=== PATIENT | female | born 1975 ===

== ENCOUNTER 2017-12-31 08:01 | Inpatient (IN) | payer MEDICARE, MEDICAID, OTHER ==
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
[2017-12-31 09:45] LABS: BASO # 0.01 K/mm3 (0.0-2.0); BASO % 0.2 % (0.0-3.0); EOS # 0.1 (0.0-0.7); EOS % 2.1 % (1.5-5.0); GRAN # 2.53 (1.4-6.5); GRAN % 48.9 % (50.0-68.0); LYMPH # 2.2 (1.2-3.4); LYMPH % 41.7 % (22.0-35.0); MEAN CELL VOLUME 89.6 fl (80.0-105.0); MEAN CORPUSCULAR HEMOGLOBIN 31.4 pg (25.0-35.0); MEAN PLATELET VOLUME 11.7 fl (7.0-11.0); MONO # 0.4 (0.1-0.6); MONO % 7.1 % (1.0-6.0); RBC 4.14 10^6/uL (3.5-6.1); RED CELL DISTRIBUTION WIDTH 13.4 % (11.5-14.5); WHITE BLOOD COUNT 5.2 10^3/ul (4.5-11.0)
[2017-12-31 09:50] LABS: ALB/GLOB RATIO 1.3 (1.1-1.8); ALBUMIN 4.1 g/dL (3.0-4.8); ALT/SGPT 25 U/L (7-56); AST/SGOT 26 U/L (14-36); BLOOD UREA NITROGEN 11 mg/dL (7-21); CALCIUM 9.6 mg/dL (8.4-10.5); GFR AFRICAN-AMERICAN > 60; GFR NON-AFRICAN AMERICAN > 60
--- NOTE | 2017-12-31 09:50 | CT ---
PROCEDURE: CT HEAD WITHOUT CONTRAST. HISTORY: severe generalized headaches COMPARISON: Unenhanced head CT 01/15/2016 TECHNIQUE: Axial computed tomography images were obtained through the head/brain without intravenous contrast. Radiation dose: Total exam DLP = 799.27 mGy-cm. This CT exam was performed using one or more of the following dose reduction techniques: Automated exposure control, adjustment of the mA and/or kV according to patient size, and/or use of iterative reconstruction technique. FINDINGS: HEMORRHAGE: No intracranial hemorrhage. BRAIN: Punctate calcification is again seen at the right frontotemporal operculuar schmidt matter. There is no mass effect. Corticomedullary differentiation remains normal. No parenchymal edema is appreciated involving schmidt or white matter structures including the posterior fossa contents. No suspicious extra-axial fluid collection is identified in the midline brain and appears unremarkable once again. VENTRICLES: Unremarkable. No hydrocephalus. CALVARIUM: Unremarkable. PARANASAL SINUSES: Unremarkable as visualized. No significant inflammatory changes. MASTOID AIR CELLS: Unremarkable as visualized. No inflammatory changes. OTHER FINDINGS: Questionable bilateral exophthalmos. The orbits are not completely captured in this head CT. Clinically correlate. IMPRESSION: Stable unenhanced head CT with no definite acute intracranial findings appreciable. Follow up CT or MRI are available if clinically warranted. Questionable incidental exopthalmos. Clinically correlate.
[2017-12-31 10:04] LABS: INR 0.93 (0.93-1.08); PARTIAL THROMBOPLASTIN TIME 30.1 Seconds (25.1-36.5); PROTHROMBIN TIME 10.7 SECONDS (9.4-12.5)
--- NOTE | 2017-12-31 10:18 | CT ---
PROCEDURE: CT OF THE TEMPORAL BONES WITHOUT CONTRAST HISTORY: left otitis externa ?mastoiditis COMPARISON: None available. TECHNIQUE: High resolution axial images of the temporal bones were obtained. Coronal and sagittal reformats were generated. Radiation dose: Total exam DLP = mGy-cm. This CT exam was performed using one or more of the following dose reduction techniques: Automated exposure control, adjustment of the mA and/or kV according to patient size, and/or use of iterative reconstruction technique. FINDINGS: RIGHT TEMPORAL BONE: RIGHT MIDDLE EAR: Normal. RIGHT INNER EAR: Cochlea: Normal. Semicircular canals: Normal. RIGHT MASTOID AIR CELLS: Normal. RIGHT INTERNAL AUDITORY CANAL: Normal. RIGHT EXTERNAL AUDITORY CANAL: Normal. RIGHT VESTIBULAR AND COCHLEAR AQUEDUCT: Normal. OTHER FINDINGS: None. LEFT TEMPORAL BONE: LEFT MIDDLE EAR: Normal. LEFT INNER EAR: Cochlea: Normal. Semicircular canals: Normal. LEFT MASTOID AIR CELLS: Normal. LEFT INTERNAL AUDITORY CANAL: Normal. LEFT EXTERNAL AUDITORY CANAL: There is a 0.9 x 0.6 cm soft tissue density abutting the left tympanic membrane laterally, without bony erosion, likely reflective of cerumen. Direct visualization is advised for additional characterization. This is unlikely to correspond to the patient's symptoms nevertheless. Further clinical correlation is nevertheless recommended. LEFT VESTIBULAR AND COCHLEAR AQUEDUCTS: Normal. OTHER FINDINGS: None. IMPRESSION: At the left external auditory canal abutting the tympanic membrane is a 0.9 cm soft tissue focus likely reflecting cerumen rather than a distinct mass. Direct visualization is recommended nevertheless as well as further clinical correlation. No bony erosion is seen and the middle ear cavity is unremarkable grossly. Further clinical correlation is advised. Unremarkable right side. The bilateral bony internal auditory canals are within normal limits as imaged.
[2017-12-31] MEDS ORDERED: cefTRIAXone 1 gm 1 GM/100 ML BAG IVPB STA (10:45)
[2017-12-31] MEDS ORDERED: Morphine 2 mg/ml ISec IVP STA ×2 (10:45→13:10)
[2017-12-31] MEDS ORDERED: oxyCODONE 10 mg Immediate Release Tab PO PRN (15:01)
[2017-12-31] MEDS ORDERED: oxyCODONE 20 mg Immediate Release Tab PO PRN (15:09)
--- NOTE | 2017-12-31 15:09 | MRI ---
PROCEDURE: MRI BRAIN WITHOUT CONTRAST HISTORY: headache, ordered by Dr. Enamorado COMPARISON: Unenhanced head CT 12/31/2017. TECHNIQUE: Multiplanar, multisequence MR images of the brain were obtained without intravenous contrast enhancement. FINDINGS: HEMORRHAGE: None DWI: No evidence of an acute or early subacute infarction. BRAIN PARENCHYMA: Intrinsic signal throughout the schmidt and white matter structures above below the tentorium includes appears within normal limits including the brainstem. There is no mass effect, parenchymal edema or loss of the corticomedullary differentiation. Midline brain anatomy appears within normal limits including the corpus callosum, brainstem and craniocervical junction. There is no suspicious extra-axial fluid collection identified. A 1 cm benign cyst is seen related to the posterior right parietal calvarium abutting the superior sagittal sinus apparently dating back to prior head CT dated 04/03/2012. VENTRICLES: Unremarkable. No hydrocephalus. CRANIUM: Unremarkable. ORBITS: Grossly unremarkable. PARANASAL SINUSES/MASTOIDS: Clear VASCULAR SYSTEM: Skull base flow voids intact. OTHER FINDINGS: None. IMPRESSION: No definite acute intracranial findings above or below the tentorium including throughout the brainstem. A 1 cm stable, cystic structure seen related to the right paramedian parietal bone at the vertex apparently dating back to prior head CT 04/03/2012.
--- NOTE | 2017-12-31 15:13 | MRI ---
PROCEDURE: Magnetic Resonance Angiography Brain HISTORY: headache, ordered by Dr. Enamorado COMPARISON: None available. TECHNIQUE: 3D time of flight MR angiography of the intracranial arteries was performed. Rotating maximum intensity projection images were generated. FINDINGS: INTERNAL CAROTID ARTERIES: Unremarkable. The skull base, petrous, cavernous and supraclinoid segments are bilaterally widely patient. ANTERIOR CEREBRAL ARTERIES: Unremarkable. A1 and A2 segments are widely patent. Smaller distal branches unremarkable, as visualized. MIDDLE CEREBRAL ARTERIES: Unremarkable. M1 and M2 segments are widely patent. Perisylvian branches grossly symmetric. POSTERIOR CIRCULATION: Basilar Artery: Unremarkable. Distal Vertebral Arteries: The distal right vertebral artery appears robust. The distal left vertebral artery appears hypoplastic. Posterior Cerebral Arteries: Unremarkable. Posterior Inferior Cerebellar Arteries: Unremarkable. ANEURYSM/ VASCULAR MALFORMATIONS: None. OTHER FINDINGS: None. IMPRESSION: Unremarkable MR angiography of the brain.
[2017-12-31] MEDS: oxyCODONE 10 mg Immediate Release Tab PO PRN ×2 (15:54→22:04)
[2017-12-31] MEDS: Insulin Reg-LOW-Coverage SC SCH ×2 (16:32→22:20)
[2017-12-31] MEDS: Vancomycin 25 MG/ML PO SCH (17:42)
[2017-12-31 22:03] VITALS: BMI 29.7
[2017-12-31] MEDS ORDERED: Pneumococcal 23-Valent Vaccine IM ONE (22:03)
[2017-12-31] MEDS ORDERED: Influenza Vaccine 60 mcg/0.5 mL SYR (4YR UP) IM ONE (22:03)
[2018-01-01] MEDS: oxyCODONE 10 mg Immediate Release Tab PO PRN (03:28)
--- NOTE | 2018-01-01 04:21 | CON ---
DATE: HISTORY OF PRESENT ILLNESS: This is a 42-year-old female with past medical history of hypertension, diabetes, came to the hospital with left ear pain and which was worsening through one week and also has kind of sensation on the head with numbness and tingling in her extremities, and who complained of a left ear pain with discharge. PAST MEDICAL HISTORY: As above. History of back pain, herniated disc, migraine headache and vertigo. ALLERGIES: FIORICET, LOVENOX AND DEMEROL. HOME MEDICATIONS: Patient takes Ambien, metformin for diabetes, oxycodone and Valium. REVIEW OF SYSTEMS: A 10-point review of systems was negative. PHYSICAL EXAMINATION: HEENT: Normocephalic. Left ear pain. NECK: Supple. NEUROLOGIC: Alert, awake and oriented x3. No aphasia. Cranial nerves II through XII are tested. Pupils reactive. EOM intact. Visual tamez full. No facial asymmetry. Tongue midline. Motor examination, moves all the extremities equally. Tone normal. Deep tendon reflexes are 1+. Both plantars are downgoing. Sensory appears intact. Cerebellar, gait deferred. IMPRESSION: Headaches and ear pain, possibly causing the headaches. Patient is ALLERGIC TO FIORICET. MRI of the head and CAT scan of the head was negative, and MRA is also negative. Continue present management. Patient is on oxycodone. they called Infectious Disease and ENT consult. We will follow up. Alverto Oliva MD
[2018-01-01] MEDS: Meropenem 1g/NS 100mL IVPB 1 GM/100 ML PIGGYBACK IVPB SCH ×3 (05:19→22:20)
[2018-01-01] MEDS: Insulin Reg-LOW-Coverage SC SCH ×4 (07:51→22:00)
[2018-01-01] MEDS: Vancomycin 25 MG/ML PO SCH ×2 (09:13→18:23)
[2018-01-01] MEDS: Morphine 2 mg/ml ISec IVP PRN ×4 (09:14→22:18)
--- NOTE | 2018-01-01 09:46 | CARD ---
APPROVED REPORT EKG Measurement Heart [id number] <Conclusion> Sinus bradycardia Low voltage QRS RSR' or QR pattern in V1 suggests right ventricular conduction delay LAD Mildly prolonged QTC No change except the rate is slower
--- NOTE | 2018-01-01 13:08 | CT ---
PROCEDURE: CT NECK WITHOUT CONTRAST HISTORY: assess bc neck pain, swelling related to ear infec COMPARISON: None. TECHNIQUE: CT of the neck without intravenous contrast. Coronal and sagittal reformats generated. Radiation dose: DLP 410.84 mGy-cm This CT exam was performed using one or more of the following dose reduction techniques: Automated exposure control, adjustment of the mA and/or kV according to patient size, and/or use of iterative reconstruction technique. FINDINGS: Lack of intravenous contrast limits the sensitivity of this examination. NASOPHARYNX: Unremarkable. SUPRAHYOID NECK: Unremarkable oropharynx, oral cavity, parapharyngeal space and retropharyngeal space. Predominate shotty but borderline lymphadenopathy seen at the left delete jugular digastric lymph node chain. INFRAHYOID NECK: Unremarkable larynx, hypopharynx, and supraglottic space. Vocal cords intact. MASS: None clearly demonstrated. Again, lack venous contrast limits sensitivity of this examination. GLANDS: Parotid and submandibular glands unremarkable. Normal size thyroid gland, without nodule. LYMPH NODES: See suprahyoid neck section above CERVICAL SPINE: No fracture or focal lesion. OTHER FINDINGS: Incidental note note is made of soft tissue lesion at the region of the left tympanic membrane less well resolved than seen in the prior temporal bone/IAC CT 12/31/2017. Further, ground-glass opacity is seen at the bilateral pulmonary apices. IMPRESSION: Borderline left suprahyoid jugulodigastric lymphadenopathy. Lack images contrast limits the interpretation but no gross mass is appreciable in supra or infrahyoid neck distributions. Incidental note is made of small soft tissue density at the left tympanic membrane region. Incidental ground-glass opacity bilateral pulmonary apices.
--- NOTE | 2018-01-01 17:21 | PN ---
DATE: 01/01/2018 NEUROLOGY FOLLOWUP CHIEF COMPLAINT: Followup for headache. SUBJECTIVE: The patient was seen and examined at bedside. Headache is slightly better, but still has the ear pain and the left ear has some discharge and waiting for the ENT physician. The electrical shocks are intermittent in the head. Her MRI and MRA of the head are unremarkable for anything acute. We will follow up for soft tissue neck with the ENT. We will place her on gabapentin 300 mg p.o. at bedtime for paresthesias of her head and continue with p.r.n. morphine for control of pain and follow up with ENT. PAST MEDICAL HISTORY: History of hypertension and diabetes. SOCIAL HISTORY: No illicit drug use, smoking or EtOH abuse. FAMILY HISTORY: Noncontributory. ALLERGIES: FIORICET, CAFFEINE, LOVENOX. REVIEW OF SYSTEMS: Fourteen-point review of systems is negative except per the HPI. MEDICATIONS: Reviewed by nurse reconciliation sheet. PHYSICAL EXAMINATION: VITAL SIGNS: Temperature 97.7, pulse rate 65, blood pressure 115/69, respiratory rate of 18, oxygen saturation of 96% by room air. GENERAL: The patient is sitting up in bed, in no acute distress, has mild left ear pain. HEENT: Atraumatic, normocephalic. PERRLA. Extraocular muscles intact. NECK: Supple. No JVD. No adenopathy noted. LUNGS: Clear to auscultation. No adventitious sounds. HEART: S1, S2. Normal rate and rhythm. No murmurs, rubs or gallops. ABDOMEN: Soft, nontender and nondistended. Bowel sounds are present. EXTREMITIES: No clubbing. No cyanosis. Peripheral pulses 2+ felt bilaterally. NEUROLOGIC: The patient is alert and oriented to person, place, month and year. Speech is fluent without any errors. Cranial nerves II through XII intact. Motor exam: Moves all extremities equally. Toes are downgoing bilaterally. Sensory exam: Light touch and pinprick mildly decreased at the calves bilaterally. Decreased vibration at the toes. DTRs are 2+ throughout, 1 at the ankles. Coordination: [id number] is intact. Gait is deferred for now. LABORATORY DATA: Blood sugar today is 166. ASSESSMENT AND PLAN: 1. This is a 42-year-old with history of hypertension and diabetes, who presented with left ear pain and discharge and has been complaining of headache for the past 2 days with an electrical sensation of her head and tingling and numbness in her extremities. Her headaches are likely secondary to a tension component with a neuralgiform component as well. Her MRI and MRA of the head are unremarkable for anything acute. We will recommend for her to follow up with ENT in regards to her left ear discharge to rule out anything essential in the left ear. Awaiting ENT consultation. 2. Gabapentin 300 mg p.o. at bedtime for paresthesias as well as for headache reduction. 3. Continue with morphine p.r.n. 4. She can follow up with us as an outpatient for trigger point injections in the cervical area to reduce the headaches or with pain management. Continue to keep her blood sugars stay 140 to 180 and diabetic diet. Thank you for this followup. Darinel Oliva MD
[2018-01-01] MEDS: Ciprofloxacin/Dexamethasone OTIC SUSP AS SCH ×2 (18:25→19:01)
[2018-01-02] MEDS: Morphine 2 mg/ml ISec IVP PRN ×5 (02:02→22:37)
--- NOTE | 2018-01-02 05:00 | CON ---
DATE: 01/01/2018 LOCATION: The patient was seen earlier this morning in room #366, bed 2. CHIEF COMPLAINT: Headaches and left ear pain times several days. HISTORY OF PRESENT ILLNESS: This is a 42-year-old [facility] woman with a history of migraine headaches and with a history of kidney stones, hypertension, urinary tract infection, E. coli pyelonephritis, history of ESBL, disk disease, history of hysterectomy and oophorectomy, renal stent placement and removal, history of Crohn disease, who IS ALLERGIC TO PREDNISONE, TRAMADOL, ENOXAPARIN AND SUMATRIPTAN, who was admitted to the emergency room with a diagnosis of cellulitis and intractable headache. The patient denies any fevers or chills. She states that she does have left-sided ear pain. She does have headaches. No abdominal pain at this time, although she states that she has abdominal cramps. She does carry the diagnosis of Crohn disease. There has been no dysuria or frequency. PAST MEDICAL HISTORY: Significant for kidney stones, hypertension, Crohn disease, disk disease, ESBL, pyelonephritis, and migraine headaches. The patient also with a history of depression and anxiety, MULTIPLE ALLERGIES INCLUDING ACETAMINOPHEN, BUTALBITAL, CAFFEINE, ENOXAPARIN, KETOROLAC, TROMETHAMINE, AND MEPERIDINE. PAST SURGICAL HISTORY: Significant for hysterectomy, oophorectomy, renal stent placement and renal stent removal. PHYSICAL EXAMINATION: GENERAL: On examination, she is in bed. No acute distress; however complaining of headaches, and somewhat anxious woman. VITAL SIGNS: Temperature of 97, blood pressure is 115/60, respiratory rate of 18, and a heart rate of 65. HEENT: Unremarkable. NECK: Soft. There is tenderness on the left side of the ear, and although there is no erythema, no rash, there is mild swelling. The neck is supple. LUNGS: Decreased breath sounds. HEART: Normal S1, S2. ABDOMEN: Soft, nontender. LABORATORY DATA: Examination reveals that white count is 5.2, hemoglobin of 13, and platelets of 114. Chemistry reveals a BUN of 11 and creatinine of 0.8. Urinalysis is noted. Microbiology reveals that blood cultures are no growth. The patient's CAT scan of the neck reveals the patient to have borderline left suprahilar lymphadenopathy. Dr. Oliva's note is reviewed. It states that the patient's headaches and ear pain the headache, is allergic . MRI and CAT scan of the head is negative. Recommended an ENT consult. The patient also had a CAT scan of the internal auditory canal, was seen in the emergency room by Dr. Aliyah Wright. CAT scan without contrast showed right temporal bone. Right middle ear is normal; however, on the left side, the left external auditory canal abutting the tympanic membrane, soft tissue, and cerumen and a distinct mass. ASSESSMENT AND PLAN: This is a 42-year-old [facility] woman with a history of migraine, history of diabetes, depression, history of Crohn disease, anxiety, extended-spectrum beta-lactamase urinary bladder and pyelonephritis, hypertension, disk disease, who is now admitted with what appears to be a malignant otitis externa and a diabetic. We will treat the patient with meropenem, and thus far the blood cultures are reported to be negative. We will order a sedimentation rate and C-reactive protein. The patient had a human immunodeficiency virus test in 2012, which was negative and another one in 2013, which was negative. The patient had an RPR, which was negative. We will repeat the human immunodeficiency virus testing 4th generation, RPR, and FTA, and we will make further recommendations. We will follow closely with you. Camilo Simon MD
[2018-01-02] MEDS: Meropenem 1g/NS 100mL IVPB 1 GM/100 ML PIGGYBACK IVPB SCH ×3 (05:25→21:10)
[2018-01-02] MEDS: Insulin Reg-LOW-Coverage SC SCH ×4 (07:45→22:46)
[2018-01-02] MEDS: Ciprofloxacin/Dexamethasone OTIC SUSP AS SCH ×2 (09:53→17:35)
[2018-01-02] MEDS: Vancomycin 25 MG/ML PO SCH ×2 (10:35→17:34)
[2018-01-02 11:20] LABS: HEMOGLOBIN 12.8 g/dL (12.0-16.0); MEAN CELL VOLUME 90.3 fl (80.0-105.0); MEAN CORPUSCULAR HGB CONC 35.5 g/dl (31.0-37.0); MEAN PLATELET VOLUME 11.8 fl (7.0-11.0); RED CELL DISTRIBUTION WIDTH 13.4 % (11.5-14.5); WHITE BLOOD COUNT 6.1 10^3/ul (4.5-11.0)
--- NOTE | 2018-01-02 12:46 | DS ---
HISTORY OF PRESENT ILLNESS: This is a 42-year-old diabetic female who was evaluated for left ear otalgia for approximately 2 week duration as well as left facial pain. The patient stated that 2 weeks ago, developed some severe headaches with associated hallucinations of seeing worms on the wall. The patient also admits to severe pruritus involving the left external auditory canal and radiation into the face with electrical currents throughout her body. PAST MEDICAL HISTORY: Significant for diabetes, migraine cephalalgia. CT scan of the internal auditory canals revealed possible cerumen without any underlying mastoiditis, masses or middle ear infection. PHYSICAL EXAMINATION: The patient was noted to have evidence of some white purulence involving the left external auditory canal, which was patent. The TM was not visualized due to the purulence, which was noted. The right external auditory canal and tympanic membrane are normal on exam. The nose has demonstrated evidence of turbinate hypertrophy. The patient was tender to palpation involving the left parotid region without any swelling or significant edema noted. There was some cervical adenopathy noted bilaterally and there are 2 cm nodes palpable. Oropharynx was unremarkable. IMPRESSION: The patient is suffering from left otitis externa, possible otitis media, facial cellulitis, which appears to be improving from initial clinical presentation. PLAN: Would be to start the patient on Ciprodex 5 drops in the left ear twice a day and follow up with us in our office for proper ear suctioning and reevaluation. The patient should probably also go home on p.o. quinolone and to follow up with us in a one week time spent. Any further questions, feel free to contact me. Benjy Box DO
[2018-01-02] MEDS: Sodium Chloride 0.9% 1,000 ML IV SCH (16:22)
[2018-01-02] MEDS: DiphenhydrAMINE 50 mg/ml Inj IVP PRN ×2 (17:54→22:37)
[2018-01-02] MEDS: oxyCODONE 10 mg Immediate Release Tab PO PRN (18:00)
--- NOTE | 2018-01-02 22:57 | PN ---
DATE: 01/02/2018 SUBJECTIVE: The patient is in bed, in no acute distress, nontoxic. PHYSICAL EXAMINATION: VITAL SIGNS: On exam, temperature is 98, blood pressure is 105/50, respiratory rate 20, heart rate of 63. HEENT: Unremarkable. NECK: Supple. LUNGS: Have decreased breath sounds. HEART: Normal S1, S2. ABDOMEN: Soft, nontender. LABORATORY DATA: Reveals a white count of 6.1, hemoglobin of 12, platelets of 164. Chemistries are noted and creatinine is 0.8. Urinalysis is noted. Serology is RPR is nonreactive. Blood cultures are no growth. ASSESSMENT AND PLAN: This is a 42-year-old female, who is from originally from [facility] with history of migraine headaches, diabetes, depression, history of Crohn disease, anxiety, extended-spectrum beta-lactamase urinary bladder and pyelonephritis, hypertension, disc disease, admitted with what appears to be a malignant otitis externa and a diabetic, on treatment Dr. Benjy Box's discharge summary is reviewed. I was called regarding her possible discharge. I am ordering antibiotics, which were given. The patient is to follow up with her PMD if she is discharged. Currently on meropenem. Camilo Simon MD
[2018-01-03] MEDS: oxyCODONE 10 mg Immediate Release Tab PO PRN (00:48)
--- NOTE | 2018-01-03 01:30 | PN ---
DATE: 01/02/2018 SUBJECTIVE: She has a chief complaint of left side ear pain, otherwise no new complaints. She had a CT soft tissue neck and seen by ENT consult Dr. Box. There is no fever. She is otherwise stable. PHYSICAL EXAMINATION: VITAL SIGNS: Temperature 97.6, heart rate 60, blood pressure is 107/54, respirations 20, saturation 97% on room air. HEENT: Head and neck exam normal left ear there is some tenderness to touch over the left ear area and apparently seems swollen, left side compared with the right. CHEST: Clear. Good air entry. CARDIAC: First sound and second sound are normal. ABDOMEN: Soft, nontender. EXTREMITIES: No edema. NEUROLOGIC: Normal. LABORATORY DATA: None today. Only C-reactive protein was 3.60, which is high. Blood sugar 114, 123. IMPRESSION AND PLAN: 1. Left otitis externa and otitis media. Continue meropenem IV and continue vancomycin. Discussed with Dr. Simon. We will continue this antibiotic for now and continue Ciprodex 5 drops b.i.d. as per by ENT consult, Dr. Box. 2. Chronic neck pain, chronic back pain. Continue oxycodone plus IV morphine p.r.n. Patient asked for some Benadryl because of the itching. We will give her Benadryl. 3. Chronic anxiety. Continue Valium. 4. Obstructive sleep apnea. Patient on continuous positive airway pressure 7. We will follow up clinically. Patient has been on diabetic dose. We will continue insulin coverage and we will continue current therapy. We will get hemoglobin A1c. Continue IV fluids, D5 half normal saline at 75 mL per hour. Continue gastrointestinal and deep venous thrombosis prophylaxis. Jan Enamorado MD
[2018-01-03] MEDS: Meropenem 1g/NS 100mL IVPB 1 GM/100 ML PIGGYBACK IVPB SCH ×3 (05:10→22:21)
[2018-01-03] MEDS: Morphine 2 mg/ml ISec IVP PRN ×5 (05:10→22:04)
[2018-01-03] MEDS: DiphenhydrAMINE 50 mg/ml Inj IVP PRN ×5 (05:23→22:05)
--- NOTE | 2018-01-03 08:01 | HP ---
DATE OF EXAM: 01/01/2018 MAIN REASON FOR ADMISSION: Left ear pain and headaches. HISTORY OF PRESENT ILLNESS: Patient is a well-known 42-year-old female with chronic headaches, seen multiple neurologists in the past with multiple studies done for MRIs and MRA and seen by different neurologists complained of headache, but at this time, she is complaining of her left ear area swollen and tender and came to the ER for evaluation. She denied any nausea or vomiting. She denied any fever or any chills. Patient is on chronic pain medication for her neck and her back. Has history of depression and anxiety, admitted to psych floor in the past. PAST MEDICAL HISTORY: As above. She has a history of spine disk surgery in her lumbosacral area. She has chronic back pain, multiple disks; chronic anxiety; history of recurrent C. difficile colitis; history of multiple allergies; history of drug seeking behavior in the past; gastritis; history of renal colic, kidney stones, was treated with lithotripsy and stent placement; insomnia. ALLERGIES: PATIENT IS ALLERGIC TO MULTIPLE MEDICATIONS INCLUDING FIORICET, CAFFEINE, , LOVENOX, TORADOL, DEMEROL, REGLAN, PREDNISONE, SUMATRIPTAN, AND TECHNETIUM-99. SOCIAL HISTORY: She is . She lives with her son. She has her parents. She has a daughter, with child. FAMILY HISTORY: Noncontributory. REVIEW OF SYSTEMS: As in the present illness, abdominal pain, kidney pain, ear pain, neck pain, back pain, headaches, dizziness. PHYSICAL EXAMINATION VITAL SIGNS: Temperature 97.7, heart rate 56, blood pressure 115/69, respirations 18, saturation 95% on room air. HEAD AND NECK: Normal. No JVD. No thyromegaly. Her neck exam area including left ear,there is some tenderness; on examining the ear from outside, there is tenderness around it, but there is no redness. No JVD. No thyromegaly. CHEST: Fairly good air entry. CARDIAC: First sound and second sound normal. ABDOMEN: Soft and nontender. Bowel sounds intact. EXTREMITIES: No edema. NEUROLOGIC: Normal. DATA: Laboratory studies noted for white count 5.2, hemoglobin 13, hematocrit 37.1, platelets 114,000. Chemistry is noted for sodium 141, potassium 4.3, chloride 101, bicarbonate 27, BUN 11, creatinine 0.8. Patient had CT soft tissue of neck, which is noted for left ear, there is borderline left suprahyoid or jugulodigastric lymphadenopathy, borderline, lack of contrast made it less clear. There is also a small soft tissue area in the left tympanic membrane region. Also, patient had CAT scan of the head, which was negative for any bleeding and she also had CT of the internal auditory canal, which was noted for 0.9 x0.6 soft tissue density at left tympanic membrane laterally, likely reflective of cerumen impaction; otherwise, negative. IMPRESSION AND PLAN: Left ear possible cerumen impaction or otitis media. We will admit the patient for more personal investigation including soft tissue evaluation, ENT consultation, ID consultation. Due to her severe pain, we will give her morphine p.r.n., oxycodone p.r.n. for her pain and we will get a Neurology consult by Dr. Darinel Oliva as well as Dr. Alverto Oliva. Also ID consultation by Dr. Simon and ENT consultation by Dr. Benjy Box and we will follow up clinically. Continue current treatment. Continue pain management as it is. Resume all her medications and follow up clinically. IV fluids and gastrointestinal and deep vein thrombosis prophylaxis. aJn Enamorado MD
[2018-01-03] MEDS: Insulin Reg-LOW-Coverage SC SCH ×4 (08:25→21:25)
[2018-01-03] MEDS: Ciprofloxacin/Dexamethasone OTIC SUSP AS SCH ×2 (09:43→17:58)
[2018-01-03] MEDS: Sodium Chloride 0.9% 1,000 ML IV SCH (09:48)
[2018-01-03] MEDS: Vancomycin 25 MG/ML PO SCH ×2 (10:54→17:59)
--- NOTE | 2018-01-03 20:22 | PN ---
DATE: 01/03/2018 SUBJECTIVE: Patient is in bed, in no acute distress, nontoxic. PHYSICAL EXAMINATION: VITAL SIGNS: Temperature is 98, blood pressure is 99/50, respiratory rate of 20, heart rate of 68. HEENT: Unremarkable. NECK: Supple. LUNGS: Have decreased breath sounds. HEART: Normal S1, S2. ABDOMEN: Soft, nontender. LABORATORY EXAMINATION: Reveals a white count of 6.1, hemoglobin of 12, platelets of 164. Chemistries reveals a BUN of 11, creatinine of 0.8. Urinalysis is noted. Serology is noted. Microbiology reveals the blood cultures are negative. ASSESSMENT AND PLAN: A 42-year-old female originally from [facility] who has migraine headaches by history, history of diabetes, depression and Crohn disease, anxiety, extended spectrum beta lactamase urinary tract infection and pyelonephritis, hypertension, disk disease. On this admission, patient has malignant otitis externa in a diabetic with, according to the ENT note, purulent material in the ear. They were unable to see the tympanic membrane. We will continue the meropenem and follow the patient clinically. Patient was empirically started on p.o. vancomycin and Flagyl by Dr. Enamorado for a possibility of pseudomembranous colitis and we will order a stool for Clostridium difficile. Patient does have a history of Crohn disease. Camilo Simon MD
[2018-01-04] MEDS: oxyCODONE 10 mg Immediate Release Tab PO PRN (00:47)
[2018-01-04] MEDS: Morphine 2 mg/ml ISec IVP PRN ×3 (02:29→11:11)
[2018-01-04] MEDS: DiphenhydrAMINE 50 mg/ml Inj IVP PRN ×5 (02:29→22:36)
[2018-01-04] MEDS: Meropenem 1g/NS 100mL IVPB 1 GM/100 ML PIGGYBACK IVPB SCH ×3 (06:36→22:32)
[2018-01-04] MEDS: Sodium Chloride 0.9% 1,000 ML IV SCH ×2 (06:38→11:11)
[2018-01-04] MEDS: Insulin Reg-LOW-Coverage SC SCH ×4 (08:12→22:30)
[2018-01-04] MEDS: Ciprofloxacin/Dexamethasone OTIC SUSP AS SCH ×2 (11:10→17:04)
[2018-01-04] MEDS: Vancomycin 25 MG/ML PO SCH ×2 (11:12→17:04)
--- NOTE | 2018-01-04 16:41 | CP.PCM.PN ---
Subjective - Date & Time of Evaluation Date of Evaluation: 01/04/18 Time of Evaluation: 11:05 - Subjective Subjective: Still with left ear pain but a little less, but there is still drainage. Diarrhea is slowly improving. Objective - Vital Signs/Intake and Output Vital Signs (last 24 hours): Temp Pulse Resp BP Pulse Ox 99 F 107 H 21 140/77 96 01/04/18 09:14 01/04/18 09:14 01/04/18 09:14 01/04/18 09:14 01/04/18 09:14 - Medications Medications: Current Medications Ciprofloxacin/Dexamethasone (Ciprodex Otic) 5 drop BID [facility] Last Admin: 01/03/18 17:58 Dose: 5 drop Diazepam (Valium) 5 mg PO BID [facility] Last Admin: 01/03/18 17:57 Dose: 5 mg Diphenhydramine HCl (Benadryl) 25 mg IVP Q4H PRN PRN Reason: Allergy symptoms Last Admin: 01/04/18 06:36 Dose: 25 mg Gabapentin (Neurontin) 300 mg PO HS [facility] PRN Reason: Protocol Last Admin: 01/03/18 22:05 Dose: 300 mg Heparin Sodium (Porcine) (Heparin) 5,000 units SC Q12 [facility] PRN Reason: Protocol Last Admin: 01/03/18 21:44 Dose: Not Given Hydrochlorothiazide (Hydrodiuril) 25 mg PO DAILY [facility] Last Admin: 01/03/18 09:45 Dose: 25 mg Meropenem/Sodium Chloride (Meropenem 1g/Ns 100ml Ivpb) 1 gm in 100 mls @ 100 mls/hr IVPB Q8 [facility] PRN Reason: Protocol Stop: 01/10/18 06:01 Last Admin: 01/04/18 06:36 Dose: 100 mls/hr Sodium Chloride (Sodium Chloride 0.9%) 1,000 mls @ 70 mls/hr IV .[id number] [facility] Last Admin: 01/04/18 06:38 Dose: 70 mls/hr Insulin Human Regular (Humulin R Low) 0 units SC ACHS [facility] PRN Reason: Protocol Last Admin: 01/04/18 08:12 Dose: Not Given Metformin HCl (Glucophage) 500 mg PO BID [facility] Last Admin: 01/03/18 17:58 Dose: 500 mg Metronidazole (Flagyl) 500 mg PO Q8 [facility] PRN Reason: Protocol Last Admin: 01/04/18 06:36 Dose: 500 mg Morphine Sulfate (Morphine) 2 mg IVP Q4H PRN PRN Reason: Pain, severe (8-10) Last Admin: 01/04/18 06:36 Dose: 2 mg Ondansetron HCl (Zofran Inj) 4 mg IVP Q4 PRN PRN Reason: Nausea/Vomiting Last Admin: 01/04/18 06:36 Dose: 4 mg Oxycodone HCl (Oxycodone Immediate Release Tab) 10 mg PO Q6H PRN PRN Reason: Pain, moderate (4-7) Last Admin: 01/04/18 00:47 Dose: 10 mg Pantoprazole Sodium (Protonix Inj) 40 mg IVP DAILY [facility] Last Admin: 01/03/18 10:27 Dose: 40 mg Vancomycin HCl (Vancocin 25 Mg/Ml (Oral Use)) 500 mg PO BID [facility] PRN Reason: Protocol Last Admin: 01/03/18 17:59 Dose: 500 mg Zolpidem Tartrate (Ambien) 5 mg PO HS [facility] PRN Reason: Protocol Last Admin: 01/03/18 22:05 Dose: 5 mg - Labs Labs: PT 10.7 SECONDS (9.4-12.5) 12/31/17 08:55 INR 0.93 (0.93-1.08) 12/31/17 08:55 APTT 30.1 Seconds (25.1-36.5) 12/31/17 08:55 - Constitutional Appears: Chronically Ill - Head Exam Head Exam: NORMAL INSPECTION - ENT Exam ENT Exam: Mucous Membranes Moist Additional comments: left ear with gauze in place - Neck Exam Neck Exam: absent: Meningismus - Respiratory Exam Respiratory Exam: Decreased Breath Sounds - Cardiovascular Exam Cardiovascular Exam: +S1, +S2 - GI/Abdominal Exam GI & Abdominal Exam: Soft. absent: Tenderness Assessment and Plan - Assessment and Plan (Free Text) Plan: Assessment malignant otitis externa R/O C. diff. colitis migraine headache Crohn's disease anxiety disorder anxiety depression history of ESBL E. coli UTI HTN Plan continue Merrem to complete 10-14 days (day 4 today) continue PO Vancomycin pending stool for C. diff.
[2018-01-04] MEDS ORDERED: Morphine 2 mg/ml ISec IVP PRN (17:06)
[2018-01-04] MEDS ORDERED: Sodium Chloride 0.9% 250 ML IV STA ×2 (17:08→22:20)
[2018-01-04] MEDS ORDERED: Sodium Chloride 0.9% 1,000 ML IV SCH (17:15)
[2018-01-04] MEDS: oxyCODONE 15 mg Immediate Release Tab PO PRN (23:56)
[2018-01-05] MEDS: DiphenhydrAMINE 50 mg/ml Inj IVP PRN ×2 (04:18→09:38)
--- NOTE | 2018-01-05 04:50 | PN ---
DATE: 01/03/2018 SUBJECTIVE: The patient is comfortable, getting IV antibiotic as per ID recommendations for otitis media and externa. The patient has no chest pain. Not short of breath. She does sleep. She is getting morphine 2 mg every four hours p.r.n., but she seems sleepy. I did advise the patient to take only when she needed and risk of too much pain meds and refusing CPAP machine. Explained to the patient risks of severe obstructive sleep apnea and respiratory arrest explained to her. The patient otherwise afebrile. No nausea. No vomiting. She is eating not much, is eating less than before. PHYSICAL EXAMINATION: VITAL SIGNS: Is as follows, temperature is 99, heart rate 107, blood pressure 140/77, respirations 21, oxygen saturation 96% on room air. HEAD AND NECK: Normal. No JVD. No thyromegaly. CHEST: Clear good air entry. CARDIAC: First and second heart sounds normal. ABDOMEN: Soft. Nontender. EXTREMITIES: No edema. EAR: Left ear with swelling below the parotid area. There is tenderness to touch. No redness. IMPRESSION: 1. Acute otitis media and externa as per Ear, nose, and throat, continue Infectious Disease recommendation. Intravenous antibiotics. 2. Obstructive sleep apnea, continue continuous positive airway pressure; the patient refused continuous positive airway pressure. 3. Chronic back pain, chronic neck pain. Continue oxycodone. The patient also uses morphine now p.r.n. She is not getting much of her Percocet. She is getting more of morphine which does have side effects of lowering the blood pressure. I did explain to the patient that. She still prefers to get the morphine at this time for pain relief. 4. Chronic anxiety, depression. Continue Valium and continue current treatment. 5. Diabetes, continue metformin, continue insulin coverage. PLAN: Continue current therapy of hydrochlorothiazide, heparin subcutaneous 5000 q. 12, continue Ambien 5 mg at bedtime p.r.n. Continue CPAP for obstructive sleep apnea. Jan Enamorado MD
--- NOTE | 2018-01-05 05:37 | PN ---
DATE: 01/04/2018 SUBJECTIVE: Patient seemed stable. She is not eating. Sleeping most of the time. I did discuss with the patient about decreasing the morphine. We will do that. She also refused the CPAP machine. She is afebrile. No nausea. No vomiting. PHYSICAL EXAMINATION: VITAL SIGNS: Temperature 97.9, heart rate is 68, blood pressure is 95/52, respirations 16, saturations 97% on room air. HEAD AND NECK: Normal. No JVD. No thyromegaly. Left parotid area is stented, mild swelling. CHEST: Clear. Good air entry. CARDIAC: First sound and second sound normal. ABDOMEN: Soft, nontender. EXTREMITIES: No edema. NEUROLOGIC: Normal. LABORATORY DATA: CBC within normal range. White count 6.1, hemoglobin 12.8, hematocrit 36.1, platelets 164. Basic metabolic panel ordered for tomorrow. IMPRESSION AND PLAN: 1. Acute otitis externa, acute otitis media. Continue intravenous meropenem. Continue Cipro otic drops 5 drops b.i.d. 2. Obstructive sleep apnea. Continue CPAP. Patient refused continuous positive airway pressure machine. We will change Valium to 5 mg in the morning and b.i.d. p.r.n. She does have chronic anxiety. We will continue current therapy in addition to her Ambien for chronic insomnia. 3. Diabetes type 2. She is on metformin. Continue insulin coverage. Her sugar is running very good. Her hemoglobin A1c was down at 6.8, which is excellent control of her diabetes. 4. Hypertension, stable. We will consider adding CHELLE inhibitors. 5. Chronic back pain, chronic neck pain, disk surgery, history of neck surgery. Continue oxycodone p.r.n. and morphine 2 mg. We will discontinue morphine due to blood pressure low. We will give her 250 normal saline bolus and increase intravenous fluid to 100 mL normal saline. We will hold off on transferring the patient to Transitional Care Unit till her blood pressures stabilized. Continue current therapy. Jan Enamorado MD
[2018-01-05] MEDS: Meropenem 1g/NS 100mL IVPB 1 GM/100 ML PIGGYBACK IVPB SCH (05:43)
[2018-01-05] MEDS: oxyCODONE 15 mg Immediate Release Tab PO PRN ×2 (05:43→09:34)
[2018-01-05] MEDS ORDERED: Pantoprazole 40 mg EC Tab PO SCH (06:00)
[2018-01-05 06:49] LABS: BASO # 0.01 K/mm3 (0.0-2.0); BASO % 0.1 % (0.0-3.0); EOS # 0.2 (0.0-0.7); GRAN # 4.7 (1.4-6.5); GRAN % 63.5 % (50.0-68.0); HEMOGLOBIN 12.4 g/dL (12.0-16.0); LYMPH % 26.7 % (22.0-35.0); MEAN CORPUSCULAR HGB CONC 34.1 g/dl (31.0-37.0); MEAN PLATELET VOLUME 11.3 fl (7.0-11.0); MONO # 0.6 (0.1-0.6); MONO % 7.7 % (1.0-6.0); RED CELL DISTRIBUTION WIDTH 13.4 % (11.5-14.5); WHITE BLOOD COUNT 7.4 10^3/ul (4.5-11.0)
[2018-01-05 07:20] LABS: ALB/GLOB RATIO 1.2 (1.1-1.8); ALBUMIN 3.3 g/dL (3.0-4.8); ALT/SGPT 43 U/L (7-56); AST/SGOT 45 U/L (14-36); BLOOD UREA NITROGEN 12 mg/dL (7-21); CALCIUM 9.1 mg/dL (8.4-10.5); GFR AFRICAN-AMERICAN > 60; GFR NON-AFRICAN AMERICAN > 60; MAGNESIUM 1.7 mg/dL (1.7-2.2)
[2018-01-05] MEDS ORDERED: Albuterol 0.042% Inhal Sol (1.25 mg/3 mL) UD IH SCH (07:30)
[2018-01-05 08:18] VITALS: BP 123/77; PULSE 59; RESP 20; TEMP 98; O2SAT 100
[2018-01-05] MEDS: Insulin Reg-LOW-Coverage SC SCH (08:30)
[2018-01-05] MEDS ORDERED: Morphine 2 mg/ml ISec IVP PRN (09:06)
[2018-01-05] MEDS: Vancomycin 25 MG/ML PO SCH (09:36)
--- NOTE | 2018-01-07 07:06 | DS ---
HISTORY OF PRESENT ILLNESS: The patient seems doing well. She had came in with left ear pain and neck swelling. She had otitis media and otitis externa. She is on Cipro 5 drops twice a day on the affected ear, left side and she seems doing well with the IV meropenem and she is doing okay. Patient also getting morphine 2 mg every 4 hours. She was getting also IV fluids. Patient did have low blood pressure. We will hold off on morphine. We gave her bolus of IV fluid and pressure went up to 120s. Patient advised not to take morphine, use oxycodone only. Blood sugar seems okay. Hemoglobin A1c below 7 at 6.4. She has no other complaints. She also has been on meropenem 1 g IV every 8 hours and also p.o. vancomycin because of the recurrent C. diff colitis she get every time. At this time, patient seems stable. She need more antibiotics as per ID recommendations. We will transfer the patient to TCU for continuation of IV antibiotic, continue her pain management, avoid morphine because of the low blood pressure and continue oxycodone only. For diabetes, continue current meds, metformin 500 b.i.d. and seems doing well with insulin coverage. Patient does have obstructive sleep apnea, she advised compliance with CPAP, especially she is Valium for her anxiety. We will continue that and we will follow up clinically. Patient also complain of difficulty sleeping, her Ambien she take 5 mg, we will increase it to 10 mg. We will follow up clinically. PHYSICAL EXAMINATION: VITAL SIGNS: On discharge, temperature 98, heart rate 69, blood pressure 123/77, respirations 20, saturation 100%. HEAD AND NECK: Normal. No JVD, no thyromegaly. CHEST: Clear good air entry. CARDIAC: First and second sounds normal. ABDOMEN: Soft, nontender. EXTREMITIES: No edema. NEUROLOGIC: Normal. Her left ear side is a little bit swollen, tender. Otherwise it is improving as there is no redness and we will follow up on that. LABORATORY DATA: On discharge is as follows: White count 7.4, hemoglobin 12.4, hematocrit 36.4, platelets 199. Her chemistry noted for sodium 141, potassium 3.9, chloride 103, bicarb 27, BUN 12, creatinine 0.9, blood sugar 112. Liver function test is normal except an AST a little bit elevated 45. Patient has also total protein normal, albumin and globulin normal with normal ratio. DISCHARGE DIAGNOSES: 1. Left otitis externa and media. Continue meropenem IV for another 5 days as per Infectious Disease and continue drops b.i.d. for 5 days. 2. Chronic pain. She does have neck and chronic back pain. We will continue her meds as it is decrease it to 1 mg p.o. q. 4 hours p.r.n. 3. Clinical anxiety. Continue Valium. 4. Obstructive sleep apnea. Patient advised to use the continuous positive airway pressure while she is sleeping and also keep the head of bed at 40 degrees to 45 degrees. Also patient does have a history of hypertension, at this time, stable. We will try to keep the pressure up, continue IV fluid 100 mL per hour. CURRENT MEDICATIONS: Ambien, Benadryl, Cipro otic drops, Glucophage 500 b.i.d., heparin subcu every 8, insulin coverage, hydrochlorothiazide 25 mg p.o. daily, we may discontinue that, meropenem, morphine 1 mg, Neurontin 300 p.o. at bedtime, oxycodone 10, Protonix 40, IV fluid 100 mL per hour, Valium 5 mg b.i.d. and vancomycin 500 mg b.i.d. and Zofran p.r.n. Continue current therapy. Jan Enamorado MD
== END 2018-01-05 09:41 | DRG 155 ==
LOC: ED 08:01 → ERH 11:53 → 3RNO 15:22 → OBSVTOIN 01-01 09:00 → INTOOBSV 01-04 09:36 → OBSVTOIN 01-04 09:36
PROVIDERS: ADMIT Internal Medicine; ATTEND Internal Medicine
PROC: 5A09457 Assistance with Respiratory Ventilation, 24-96 Consecutive Hours, Continuous Positive Airway Pressure (ICD-10-PCS; principal; 2018-01-02)
DX: H60.22 Malignant otitis externa, left ear (principal); L03.211 Cellulitis of face; K50.90 Crohn's disease, unspecified, without complications; F32.9 Major depressive disorder, single episode, unspecified; F41.9 Anxiety disorder, unspecified; E11.9 Type 2 diabetes mellitus without complications; H66.92 Otitis media, unspecified, left ear; I10 Essential (primary) hypertension; G43.909 Migraine, unspecified, not intractable, without status migrainosus; G47.33 Obstructive sleep apnea (adult) (pediatric); F51.04 Psychophysiologic insomnia; R20.2 Paresthesia of skin; G89.29 Other chronic pain; M54.9 Dorsalgia, unspecified; M54.2 Cervicalgia; L29.9 Pruritus, unspecified; Z88.8 Allergy status to other drugs, medicaments and biological substances

== ENCOUNTER 2018-01-05 09:41 | Inpatient (IN) | payer OTHER, MEDICAID ==
[2018-01-05] MEDS ORDERED: Meropenem 1,000 MG in Sodium Chloride 0.9% 100 ML IVPB SCH (14:00)
[2018-01-05] MEDS ORDERED: oxyCODONE 10 mg Immediate Release Tab PO PRN (14:09)
[2018-01-05] MEDS: Morphine 2 mg/ml ISec IVP PRN ×2 (14:20→20:12)
[2018-01-05] MEDS: DiphenhydrAMINE 50 mg/ml Inj IVP PRN ×2 (15:18→21:31)
[2018-01-05] MEDS ORDERED: Influenza Vaccine 60 mcg/0.5 mL SYR (4YR UP) IM ONE (16:00)
[2018-01-05] MEDS ORDERED: Pneumococcal 23-Valent Vaccine IM ONE (16:00)
[2018-01-05] MEDS: Insulin Reg-LOW-Coverage SC SCH ×2 (18:11→21:32)
[2018-01-05] MEDS: Sodium Chloride 0.9% 1,000 ML IV SCH (18:11)
[2018-01-05] MEDS: Ciprofloxacin/Dexamethasone OTIC SUSP AS SCH (18:12)
[2018-01-05] MEDS: Vancomycin 25 MG/ML PO SCH (18:16)
[2018-01-05] MEDS: Meropenem 1,000 MG in Sodium Chloride 0.9% 100 ML IVPB SCH (21:32)
[2018-01-05 22:31] VITALS: BMI 31.7
[2018-01-06] MEDS: Morphine 2 mg/ml ISec IVP PRN ×7 (00:03→22:32)
[2018-01-06] MEDS: DiphenhydrAMINE 50 mg/ml Inj IVP PRN ×5 (02:50→22:57)
[2018-01-06] MEDS: Sodium Chloride 0.9% 1,000 ML IV SCH ×2 (05:44→19:01)
[2018-01-06] MEDS: Meropenem 1,000 MG in Sodium Chloride 0.9% 100 ML IVPB SCH ×3 (05:44→21:30)
[2018-01-06 07:51] LABS: BASO # 0.01 K/mm3 (0.0-2.0); BASO % 0.1 % (0.0-3.0); EOS # 0.1 (0.0-0.7); EOS % 1.9 % (1.5-5.0); GRAN # 4.57 (1.4-6.5); GRAN % 61.1 % (50.0-68.0); HEMOGLOBIN 12.5 g/dL (12.0-16.0); LYMPH # 2.2 (1.2-3.4); LYMPH % 29.4 % (22.0-35.0); MEAN CELL VOLUME 90.7 fl (80.0-105.0); MEAN CORPUSCULAR HEMOGLOBIN 31.6 pg (25.0-35.0); MEAN CORPUSCULAR HGB CONC 34.8 g/dl (31.0-37.0); MEAN PLATELET VOLUME 10.9 fl (7.0-11.0); MONO # 0.6 (0.1-0.6); MONO % 7.5 % (1.0-6.0); RBC 3.96 10^6/uL (3.5-6.1); RED CELL DISTRIBUTION WIDTH 13.7 % (11.5-14.5); WHITE BLOOD COUNT 7.5 10^3/ul (4.5-11.0)
[2018-01-06 08:05] LABS: BLOOD UREA NITROGEN 10 mg/dL (7-21); CALCIUM 9.1 mg/dL (8.4-10.5); GFR AFRICAN-AMERICAN > 60; GFR NON-AFRICAN AMERICAN > 60
[2018-01-06] MEDS: Vancomycin 25 MG/ML PO SCH ×2 (10:51→18:37)
[2018-01-06] MEDS: Ciprofloxacin/Dexamethasone OTIC SUSP AS SCH ×2 (10:51→18:36)
[2018-01-06] MEDS: Insulin Reg-LOW-Coverage SC SCH ×4 (11:01→22:10)
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
[2018-01-07] MEDS: Morphine 2 mg/ml ISec IVP PRN ×6 (02:26→22:06)
[2018-01-07] MEDS: DiphenhydrAMINE 50 mg/ml Inj IVP PRN ×6 (02:40→22:07)
[2018-01-07] MEDS: Meropenem 1,000 MG in Sodium Chloride 0.9% 100 ML IVPB SCH ×3 (05:14→21:45)
[2018-01-07] MEDS: Insulin Reg-LOW-Coverage SC SCH ×4 (06:44→22:17)
[2018-01-07] MEDS: Ciprofloxacin/Dexamethasone OTIC SUSP AS SCH (10:33)
[2018-01-07] MEDS: Vancomycin 25 MG/ML PO SCH ×2 (10:35→18:15)
[2018-01-07] MEDS: Sodium Chloride 0.9% 1,000 ML IV SCH ×2 (11:13→21:46)
--- NOTE | 2018-01-07 11:19 | CP.PCM.PN ---
Subjective - Date & Time of Evaluation Date of Evaluation: 01/07/18 Time of Evaluation: 11:00 - Subjective Subjective: Still complaining of pain in the left ear, and now with itching in the right ear , still with discharge, although a little better, no fevers. Objective - Vital Signs/Intake and Output Vital Signs (last 24 hours): Temp Pulse Resp BP Pulse Ox 98.4 F 87 18 133/75 94 L 01/06/18 17:33 01/06/18 17:33 01/06/18 17:33 01/06/18 17:33 01/06/18 17:33 Intake and Output: 01/07/18 01/07/18 06:59 18:59 Intake Total 240 Output Total 600 Balance -360 - Medications Medications: Current Medications Ciprofloxacin/Dexamethasone (Ciprodex Otic) 5 drop BID [facility] PRN Reason: Protocol Last Admin: 01/06/18 18:36 Dose: 5 drop Diazepam (Valium) 5 mg PO BID [facility] PRN Reason: Protocol Last Admin: 01/06/18 19:42 Dose: Not Given Diphenhydramine HCl (Benadryl) 50 mg IVP Q4H PRN PRN Reason: Itching / Pruritus Last Admin: 01/07/18 06:43 Dose: 50 mg Gabapentin (Neurontin) 300 mg PO HS [facility] PRN Reason: Protocol Last Admin: 01/06/18 21:31 Dose: 300 mg Heparin Sodium (Porcine) (Heparin) 5,000 units SC Q12 [facility] PRN Reason: Protocol Last Admin: 01/06/18 21:30 Dose: 5,000 units Sodium Chloride (Sodium Chloride 0.9%) 1,000 mls @ 70 mls/hr IV .[id number] [facility] PRN Reason: Protocol Last Admin: 01/06/18 19:01 Dose: 70 mls/hr Meropenem 1,000 mg/ Sodium (Chloride) 100 mls @ 100 mls/hr IVPB Q8 [facility] PRN Reason: Protocol Stop: 01/13/18 22:01 Last Admin: 01/07/18 05:14 Dose: 100 mls/hr Insulin Human Regular (Humulin R Low) 0 units SC ACHS [facility] PRN Reason: Protocol Last Admin: 01/07/18 06:44 Dose: Not Given Metformin HCl (Glucophage) 500 mg PO BID [facility] PRN Reason: Protocol Last Admin: 01/06/18 18:36 Dose: Not Given Metronidazole (Flagyl) 500 mg PO Q8 [facility] PRN Reason: Protocol Stop: 01/11/18 23:00 Last Admin: 01/07/18 05:14 Dose: 500 mg Morphine Sulfate (Morphine) 2 mg IVP Q4H PRN PRN Reason: Pain, severe (8-10) Last Admin: 01/07/18 06:26 Dose: 2 mg Ondansetron HCl (Zofran Inj) 4 mg IVP Q4H PRN; Protocol PRN Reason: Nausea/Vomiting Pantoprazole Sodium (Protonix Inj) 40 mg IVP DAILY [facility] PRN Reason: Protocol Last Admin: 01/06/18 11:53 Dose: 40 mg Vancomycin HCl (Vancocin 25 Mg/Ml (Oral Use)) 500 mg PO BID [facility] PRN Reason: Protocol Last Admin: 01/06/18 18:37 Dose: 500 mg Zolpidem Tartrate (Ambien) 10 mg PO HS [facility] PRN Reason: Protocol Last Admin: 01/06/18 21:29 Dose: 10 mg - Labs Labs: 01/06/18 07:40 01/06/18 07:40 - Constitutional Appears: Non-toxic, Chronically Ill - Head Exam Head Exam: NORMAL INSPECTION - ENT Exam ENT Exam: Mucous Membranes Moist - Neck Exam Neck Exam: absent: Meningismus - Respiratory Exam Respiratory Exam: Decreased Breath Sounds - Cardiovascular Exam Cardiovascular Exam: +S1, +S2 - GI/Abdominal Exam GI & Abdominal Exam: Soft. absent: Tenderness Assessment and Plan - Assessment and Plan (Free Text) Plan: Assessment malignant otitis externa, left migraine headache Crohn's disease anxiety disorder anxiety depression history of ESBL E. coli UTI HTN Plan continue Merrem to complete 10-14 days (day 7 today) follow up further ENT recommendations check stool for C. diff.
[2018-01-07 14:21] LABS: MEAN CELL VOLUME 92.9 fl (80.0-105.0); MEAN CORPUSCULAR HEMOGLOBIN 31.7 pg (25.0-35.0); MEAN CORPUSCULAR HGB CONC 34.1 g/dl (31.0-37.0); MEAN PLATELET VOLUME 10.9 fl (7.0-11.0); RBC 4.1 10^6/uL (3.5-6.1)
[2018-01-07 14:31] LABS: BLOOD UREA NITROGEN 9 mg/dL (7-21); CALCIUM 9.8 mg/dL (8.4-10.5); GFR AFRICAN-AMERICAN > 60; GFR NON-AFRICAN AMERICAN > 60
[2018-01-07] MEDS: Ciprofloxacin/Dexamethasone OTIC SUSP AU SCH (18:13)
--- NOTE | 2018-01-07 20:52 | HP ---
DATE OF EXAMINATION: 01/06/2018 CHIEF COMPLAINT: A 42-year-old female came in to TCU for continuation of IV antibiotic for otitis media and externa, diabetic patient. HISTORY OF PRESENT ILLNESS: The patient has been admitted with left ear pain, seen by ENT, ID consult, recommendation IV antibiotic and local Cipro otic drops 5 drops b.i.d., continue current therapy for another 5 days. Patient was discharged and readmitted for continuation of IV antibiotic. Also she does have severe pain in the left ear plus back pain. We will continue her pain management. PAST MEDICAL HISTORY: Has chronic back pain, had back surgery, obesity, depression and anxiety, hypertension, kidney stones, lithotripsy, recurrent urinary tract infection, recurrent C. diff colitis. She has diabetes type 2, on metformin. ALLERGIES: SHE HAS ALLERGIES TO MULTIPLE MEDICATIONS INCLUDING LOVENOX, FIORICET, CAFFEINE, TYLENOL AND MORE. MEDICATIONS: She takes oxycodone 15 mg q. 6 hours p.r.n. She takes Flagyl 500 b.i.d. She takes Glucophage 500 b.i.d. Also she takes hydrochlorothiazide 25 mg p.o. daily, Norvasc 2.5 mg p.o. daily, Ambien 10 mg at night, Valium 5 mg b.i.d. REVIEW OF SYSTEMS: As in present illness, she does complain of pain, back pain abdominal pain, neck pain, she always has and she is on pain medicine; depression and anxiety always, she is always crying, seen by multiple specialists; dysuria on and off; chronic headache, seen by multiple neurologists. Otherwise, the rest of the review of systems is negative. PHYSICAL EXAMINATION: VITAL SIGNS: Temperature 97.4, heart rate 91, blood pressure 126/87, respirations 18, saturation 98% on room air. HEENT: Head and neck normal. No JVD, no thyromegaly. On the left ear exam, the neck area, there is swelling on the left ear, this has improved significantly. Redness is better and there is tenderness to touch. CHEST: Clear, good air entry. CARDIAC: First and second sound normal. ABDOMEN: Soft, obese, nontender. EXTREMITIES: No edema. NEUROLOGIC: Normal. IMPRESSION AND PLAN: 1. Otitis externa, otitis media. Continue Cipro drops twice a day plus IV antibiotic as per Infectious Disease consult for 5 more days. She is getting meropenem 1 g IV every 8 hours plus vancomycin 500 b.i.d. for Clostridium difficile colitis because she has recurrent Clostridium difficile. 2. Chronic neck pain, chronic back pain, chronic insomnia. Continue Ambien, continue oxycodone. Patient getting morphine 1 mg every 4 hours. Monitor her blood pressure, sometimes blood pressure goes down. We will discuss with the patient risk of morphine and other medications, especially with the history of obstructive sleep apnea, advised to use continuous positive airway pressure machine every day. 3. Obstructive sleep apnea. Continue continuous positive airway pressure compliance, patient is not compliant with the continuous positive airway pressure. 4. Chronic anxiety and depression. Continue Valium for now. 5. Diabetes. Continue metformin plus insulin coverage. 6. Continue current therapy, continue heparin subcu for deep venous thrombosis prophylaxis and follow up clinically. Jan Enamorado MD
[2018-01-08] MEDS: DiphenhydrAMINE 50 mg/ml Inj IVP PRN ×6 (02:24→23:13)
[2018-01-08] MEDS: Morphine 2 mg/ml ISec IVP PRN ×6 (02:24→23:12)
[2018-01-08] MEDS: Meropenem 1,000 MG in Sodium Chloride 0.9% 100 ML IVPB SCH ×3 (05:25→22:32)
[2018-01-08] MEDS: Insulin Reg-LOW-Coverage SC SCH ×4 (06:29→22:40)
--- NOTE | 2018-01-08 10:17 | CP.PCM.PN ---
Subjective - Date & Time of Evaluation Date of Evaluation: 01/08/18 Time of Evaluation: 10:05 - Subjective Subjective: Still complaining of left ear pain and discharge but a little better, no fevers , diarrhea is improving. Objective - Vital Signs/Intake and Output Vital Signs (last 24 hours): Temp Pulse Resp BP Pulse Ox 98.6 F 86 18 127/76 96 01/07/18 17:32 01/07/18 17:32 01/07/18 17:32 01/07/18 17:32 01/07/18 17:32 Intake and Output: 01/08/18 01/08/18 06:59 18:59 Intake Total 320 Output Total 525 Balance -205 - Medications Medications: Current Medications Ciprofloxacin/Dexamethasone (Ciprodex Otic) 5 drop AU BID [facility] PRN Reason: Protocol Last Admin: 01/07/18 18:13 Dose: 5 drop Diazepam (Valium) 5 mg PO BID [facility] PRN Reason: Protocol Last Admin: 01/07/18 18:14 Dose: 5 mg Diphenhydramine HCl (Benadryl) 50 mg IVP Q4H PRN PRN Reason: Itching / Pruritus Last Admin: 01/08/18 06:26 Dose: 50 mg Gabapentin (Neurontin) 300 mg PO HS [facility] PRN Reason: Protocol Last Admin: 01/07/18 21:45 Dose: 300 mg Heparin Sodium (Porcine) (Heparin) 5,000 units SC Q12 [facility] PRN Reason: Protocol Last Admin: 01/07/18 21:45 Dose: 5,000 units Sodium Chloride (Sodium Chloride 0.9%) 1,000 mls @ 70 mls/hr IV .[id number] [facility] PRN Reason: Protocol Last Admin: 01/07/18 21:46 Dose: 70 mls/hr Meropenem 1,000 mg/ Sodium (Chloride) 100 mls @ 100 mls/hr IVPB Q8 [facility] PRN Reason: Protocol Stop: 01/13/18 22:01 Last Admin: 01/08/18 05:25 Dose: 100 mls/hr Insulin Human Regular (Humulin R Low) 0 units SC ACHS [facility] PRN Reason: Protocol Last Admin: 01/08/18 06:29 Dose: Not Given Metformin HCl (Glucophage) 500 mg PO BID [facility] PRN Reason: Protocol Last Admin: 01/07/18 18:15 Dose: 500 mg Morphine Sulfate (Morphine) 2 mg IVP Q4H PRN PRN Reason: Pain, severe (8-10) Last Admin: 01/08/18 06:27 Dose: 2 mg Ondansetron HCl (Zofran Inj) 4 mg IVP Q4H PRN; Protocol PRN Reason: Nausea/Vomiting Pantoprazole Sodium (Protonix Inj) 40 mg IVP DAILY [facility] PRN Reason: Protocol Last Admin: 01/07/18 10:34 Dose: 40 mg Vancomycin HCl (Vancocin 25 Mg/Ml (Oral Use)) 500 mg PO BID [facility] PRN Reason: Protocol Last Admin: 01/07/18 18:15 Dose: 500 mg Zolpidem Tartrate (Ambien) 10 mg PO HS [facility] PRN Reason: Protocol Last Admin: 01/07/18 21:44 Dose: 10 mg - Labs Labs: 01/07/18 14:05 01/07/18 14:05 - Constitutional Appears: Non-toxic, Chronically Ill - Head Exam Head Exam: NORMAL INSPECTION - Neck Exam Neck Exam: absent: Meningismus - Respiratory Exam Respiratory Exam: Decreased Breath Sounds - Cardiovascular Exam Cardiovascular Exam: +S1, +S2 - GI/Abdominal Exam GI & Abdominal Exam: Soft. absent: Tenderness Assessment and Plan - Assessment and Plan (Free Text) Plan: Assessment malignant otitis externa, left R/O C. diff. migraine headache Crohn's disease anxiety disorder anxiety depression history of ESBL E. coli UTI HTN Plan continue Merrem to complete 10-14 days (day 8 today) on PO Vancomycin per PMD (day 8 of 10) follow up further ENT recommendations
[2018-01-08] MEDS: Ciprofloxacin/Dexamethasone OTIC SUSP AU SCH ×2 (10:49→18:11)
[2018-01-08] MEDS: Vancomycin 25 MG/ML PO SCH ×2 (10:51→18:12)
[2018-01-08] MEDS: Sodium Chloride 0.9% 1,000 ML IV SCH (14:16)
--- NOTE | 2018-01-08 16:32 | PN ---
DATE: 01/07/2018 SUBJECTIVE: Patient is seen,doing better. No chest pain, no shortness of breath. Her pain seems improving; however, she did complain also of right ear discomfort and pain. No fever, no nausea, no vomiting. Seems very comfortable and watching TV, getting IV antibiotics. PHYSICAL EXAMINATION: VITAL SIGNS: Temperature 98.6, heart rate 86, blood pressure 127/76, respirations 18, saturation 98%. HEAD AND NECK: Normal except for tender right ear which seems improving, swelling and redness. CHEST: Clear, good air entry. CARDIAC: First sound and second sound normal. ABDOMEN: Soft, obese, nontender. EXTREMITIES: No edema. NEUROLOGIC: Normal. LABORATORY DATA: Shows white count of 8, hemoglobin 13.0, hematocrit 38.1, and platelets 231. Chemistry shows sodium 143, potassium 3.9, chloride 104, bicarb 27. BUN is 9, creatinine 0.8. Blood sugar 116. Calcium 9.8. IMPRESSION AND PLAN: 1. Severe left ear otitis media and otitis externa. We will continue, as per ID consultations, the Cipro otic drops plus meropenem IV 1 g q. 8 hours for malignant otitis externa. 2. Patient has history of diarrhea, rule out Clostridium difficile, stool was sent. 3. History of migraine headache. 4. Chronic depression and anxiety. 5. Chronic neck pain. 6. Hypertension, seems stable. She is off diuretic. Patient is day 8 of IV antibiotics. She should continue 10 to 14 days of meropenem. Also, patient getting p.o. vancomycin, day 8 of 10. We will continue current therapy. We will follow up clinically. 7. Diabetes type 2. Continue insulin coverage. Continue metformin 500 mg b.i.d. that seems stable. 8. History of low blood pressure, on morphine. Continue sodium chloride 70 mL per hour. 9. Patient also has chronic insomnia due to underlying anxiety. Continue Ambien 10 mg at nighttime. 10. Obstructive sleep apnea. Patient is noncompliant with CPAP machine. Advised the risk of medication and respiratory problem. She does ask for medication cannot stop it and same time, risk of noncompliance to the CPAP explained to the patient. CURRENT MEDICATIONS: Ambien 10 mg daily, Benadryl 50 mg q.4 hour p.r.n., Ciprodex otic 5 drops twice a day affected ear, metformin 500 b.i.d., heparin subq, insulin coverage morphine 2 mg IV q. 4 hours p.r.n., Neurontin 300 mg p.o. at bedtime, Protonix 40 mg IV daily, Valium 5 mg b.i.d., vancomycin 500 b.i.d., Zofran 4 mg IV q. 4 hours p.r.n. Continue current therapy. Jan Enamorado MD
[2018-01-09] MEDS: Sodium Chloride 0.9% 1,000 ML IV SCH ×2 (02:28→19:14)
[2018-01-09] MEDS: Morphine 2 mg/ml ISec IVP PRN ×6 (03:13→23:21)
[2018-01-09] MEDS: DiphenhydrAMINE 50 mg/ml Inj IVP PRN ×6 (03:13→23:21)
[2018-01-09] MEDS: Meropenem 1,000 MG in Sodium Chloride 0.9% 100 ML IVPB SCH ×3 (05:15→21:30)
[2018-01-09] MEDS: Insulin Reg-LOW-Coverage SC SCH ×4 (07:09→22:49)
[2018-01-09] MEDS: Vancomycin 25 MG/ML PO SCH ×2 (11:10→19:00)
[2018-01-09] MEDS: Ciprofloxacin/Dexamethasone OTIC SUSP AU SCH ×2 (11:12→19:15)
--- NOTE | 2018-01-09 11:27 | CP.PCM.PN ---
Subjective - Date & Time of Evaluation Date of Evaluation: 01/09/18 Time of Evaluation: 11:15 - Subjective Subjective: No fevers, less pain in the left ear, no nausea or diarrhea, less discharge from the ear. Objective - Vital Signs/Intake and Output Vital Signs (last 24 hours): Temp Pulse Resp BP Pulse Ox 97.9 F 53 L 18 119/74 93 L 01/09/18 06:00 01/09/18 06:00 01/09/18 06:00 01/09/18 06:00 01/09/18 06:00 Intake and Output: 01/09/18 01/09/18 06:59 18:59 Intake Total 320 Output Total 525 Balance -205 - Medications Medications: Current Medications Ciprofloxacin/Dexamethasone (Ciprodex Otic) 5 drop AU BID [facility] PRN Reason: Protocol Last Admin: 01/08/18 18:11 Dose: 5 drop Diazepam (Valium) 5 mg PO BID [facility] PRN Reason: Protocol Last Admin: 01/08/18 18:11 Dose: 5 mg Diphenhydramine HCl (Benadryl) 50 mg IVP Q4H PRN PRN Reason: Itching / Pruritus Last Admin: 01/09/18 07:09 Dose: 50 mg Gabapentin (Neurontin) 300 mg PO HS [facility] PRN Reason: Protocol Last Admin: 01/08/18 22:33 Dose: 300 mg Heparin Sodium (Porcine) (Heparin) 5,000 units SC Q12 [facility] PRN Reason: Protocol Last Admin: 01/08/18 22:33 Dose: 5,000 units Sodium Chloride (Sodium Chloride 0.9%) 1,000 mls @ 70 mls/hr IV .[id number] [facility] PRN Reason: Protocol Last Admin: 01/09/18 02:28 Dose: 70 mls/hr Meropenem 1,000 mg/ Sodium (Chloride) 100 mls @ 100 mls/hr IVPB Q8 [facility] PRN Reason: Protocol Stop: 01/13/18 22:01 Last Admin: 01/09/18 05:15 Dose: 100 mls/hr Insulin Human Regular (Humulin R Low) 0 units SC ACHS [facility] PRN Reason: Protocol Last Admin: 01/09/18 07:09 Dose: Not Given Metformin HCl (Glucophage) 500 mg PO BID [facility] PRN Reason: Protocol Last Admin: 01/08/18 18:11 Dose: 500 mg Morphine Sulfate (Morphine) 2 mg IVP Q4H PRN PRN Reason: Pain, severe (8-10) Last Admin: 01/09/18 07:09 Dose: 2 mg Ondansetron HCl (Zofran Inj) 4 mg IVP Q4H PRN; Protocol PRN Reason: Nausea/Vomiting Pantoprazole Sodium (Protonix Inj) 40 mg IVP DAILY [facility] PRN Reason: Protocol Last Admin: 01/08/18 10:50 Dose: 40 mg Vancomycin HCl (Vancocin 25 Mg/Ml (Oral Use)) 500 mg PO BID [facility] PRN Reason: Protocol Last Admin: 01/08/18 18:12 Dose: 500 mg Zolpidem Tartrate (Ambien) 10 mg PO HS [facility] PRN Reason: Protocol Last Admin: 01/08/18 22:32 Dose: 10 mg - Labs Labs: 01/07/18 14:05 01/07/18 14:05 - Constitutional Appears: Non-toxic - Head Exam Head Exam: NORMAL INSPECTION - Neck Exam Neck Exam: absent: Meningismus - Respiratory Exam Respiratory Exam: Decreased Breath Sounds - Cardiovascular Exam Cardiovascular Exam: +S1, +S2 - GI/Abdominal Exam GI & Abdominal Exam: Soft. absent: Tenderness Assessment and Plan - Assessment and Plan (Free Text) Plan: Assessment malignant otitis externa, left R/O C. diff. migraine headache Crohn's disease anxiety disorder anxiety depression history of ESBL E. coli UTI HTN Plan continue Merrem to complete 10-14 days (day 9 today) on PO Vancomycin per PMD (day 9 of 10) follow up further ENT recommendations
[2018-01-09] MEDS: Pantoprazole 40 mg EC Tab PO SCH (19:14)
[2018-01-10] MEDS: Morphine 2 mg/ml ISec IVP PRN ×5 (03:20→20:13)
[2018-01-10] MEDS: DiphenhydrAMINE 50 mg/ml Inj IVP PRN ×5 (03:20→20:13)
[2018-01-10] MEDS: Meropenem 1,000 MG in Sodium Chloride 0.9% 100 ML IVPB SCH ×3 (05:44→22:19)
[2018-01-10] MEDS: Insulin Reg-LOW-Coverage SC SCH ×4 (06:38→22:45)
[2018-01-10] MEDS: Vancomycin 25 MG/ML PO SCH ×2 (10:19→17:16)
[2018-01-10] MEDS: Ciprofloxacin/Dexamethasone OTIC SUSP AU SCH ×2 (10:20→17:16)
--- NOTE | 2018-01-10 12:35 | CP.PCM.PN ---
Subjective - Date & Time of Evaluation Date of Evaluation: 01/10/18 Time of Evaluation: 12:30 - Subjective Subjective: No fevers, not in distress, still with left ear pain but a little better. Objective - Vital Signs/Intake and Output Vital Signs (last 24 hours): Temp Pulse Resp BP Pulse Ox 98.0 F 52 L 20 144/87 95 01/09/18 13:39 01/09/18 13:39 01/10/18 01:00 01/09/18 13:39 01/10/18 01:00 - Medications Medications: Current Medications Ciprofloxacin/Dexamethasone (Ciprodex Otic) 5 drop AU BID [facility] PRN Reason: Protocol Last Admin: 01/09/18 19:15 Dose: 5 drop Diazepam (Valium) 5 mg PO BID [facility] PRN Reason: Protocol Last Admin: 01/09/18 19:13 Dose: 5 mg Diphenhydramine HCl (Benadryl) 50 mg IVP Q4H PRN PRN Reason: Itching / Pruritus Last Admin: 01/10/18 07:50 Dose: 50 mg Gabapentin (Neurontin) 300 mg PO HS [facility] PRN Reason: Protocol Last Admin: 01/09/18 21:31 Dose: 300 mg Heparin Sodium (Porcine) (Heparin) 5,000 units SC Q12 [facility] PRN Reason: Protocol Last Admin: 01/09/18 21:30 Dose: 5,000 units Sodium Chloride (Sodium Chloride 0.9%) 1,000 mls @ 70 mls/hr IV .[id number] [facility] PRN Reason: Protocol Last Admin: 01/09/18 19:14 Dose: 70 mls/hr Meropenem 1,000 mg/ Sodium (Chloride) 100 mls @ 100 mls/hr IVPB Q8 [facility] PRN Reason: Protocol Stop: 01/13/18 22:01 Last Admin: 01/10/18 05:44 Dose: 100 mls/hr Insulin Human Regular (Humulin R Low) 0 units SC ACHS [facility] PRN Reason: Protocol Last Admin: 01/10/18 06:38 Dose: Not Given Metformin HCl (Glucophage) 500 mg PO BID [facility] PRN Reason: Protocol Last Admin: 01/09/18 19:15 Dose: 500 mg Morphine Sulfate (Morphine) 2 mg IVP Q4H PRN PRN Reason: Pain, severe (8-10) Last Admin: 01/10/18 07:50 Dose: 2 mg Ondansetron HCl (Zofran Inj) 4 mg IVP Q4H PRN; Protocol PRN Reason: Nausea/Vomiting Pantoprazole Sodium (Protonix Ec Tab) 40 mg PO 1600 [facility] PRN Reason: Protocol Last Admin: 01/09/18 19:14 Dose: 40 mg Vancomycin HCl (Vancocin 25 Mg/Ml (Oral Use)) 500 mg PO BID [facility] PRN Reason: Protocol Last Admin: 01/09/18 19:00 Dose: 500 mg Zolpidem Tartrate (Ambien) 10 mg PO HS [facility] PRN Reason: Protocol Last Admin: 01/09/18 21:29 Dose: 10 mg - Labs Labs: 01/07/18 14:05 01/07/18 14:05 - Constitutional Appears: Chronically Ill - Head Exam Head Exam: NORMAL INSPECTION - ENT Exam ENT Exam: Mucous Membranes Moist - Neck Exam Neck Exam: absent: Meningismus - Respiratory Exam Respiratory Exam: Decreased Breath Sounds - Cardiovascular Exam Cardiovascular Exam: +S1, +S2 - GI/Abdominal Exam GI & Abdominal Exam: Soft. absent: Tenderness Assessment and Plan - Assessment and Plan (Free Text) Plan: Assessment malignant otitis externa, left R/O C. diff. migraine headache Crohn's disease anxiety disorder anxiety depression history of ESBL E. coli UTI HTN Plan continue Merrem to complete 10-14 days (day 10 today) on PO Vancomycin per PMD (day 10 of 10) follow up further ENT recommendations
[2018-01-10] MEDS: Sodium Chloride 0.9% 1,000 ML IV SCH (14:30)
[2018-01-10] MEDS: Pantoprazole 40 mg EC Tab PO SCH (17:15)
[2018-01-11] MEDS: Morphine 2 mg/ml ISec IVP PRN ×6 (00:11→21:27)
[2018-01-11] MEDS: DiphenhydrAMINE 50 mg/ml Inj IVP PRN ×6 (00:11→21:27)
--- NOTE | 2018-01-11 02:25 | PN ---
DATE: 01/08/2018 SUBJECTIVE: Patient is doing well, comfortable. She is asking for more pain medicine, but she seems stable and in no distress. Her son is next to her, and no other complaints other than her ear pain. PHYSICAL EXAMINATION: VITAL SIGNS: Temperature 98.6, heart rate 86, blood pressure 127/76, respirations 18, saturation 96% on room air. HEAD AND NECK: Normal. No JVD. No thyromegaly. Her left outside ear seems better. Less swelling, less tenderness. CHEST: Clear. Good air entry. CARDIAC: First sound and second sound normal. ABDOMEN: Soft, nontender. EXTREMITIES: No edema. IMPRESSION AND PLAN: 1. Malignant otitis media and externa. Continue current IV antibiotic. Patient is getting meropenem IV. She is getting 1 g IV q.8 hours plus she is getting Cipro otic drops 5 drops b.i.d. 2. Patient does have a history of chronic pain in addition to her ear pain. We will continue morphine 2 mg IV every 4 hours. Monitor her blood pressure. Continue IV fluids for now. 3. Diabetes. Continue metformin plus insulin coverage. Continue current therapy. 4. Chronic insomnia. Continue Ambien 10 mg. 5. Patient does have obstructive sleep apnea. We will continue CPAP. Continue current therapy and we will follow up. Continue gastric and deep vein thrombosis prophylaxis. Jan Enamorado MD
--- NOTE | 2018-01-11 02:37 | PN ---
DATE: 01/10/2018 SUBJECTIVE: Patient seems to be doing well. She has diarrhea 5-6 times a day. Her ear pain is stable. No new complaints. PHYSICAL EXAMINATION: VITAL SIGNS: Temperature 97.9, heart rate 53, blood pressure 124/70, respirations 20, saturating 97% on 3 L. HEAD AND NECK: Normal. No JVD, no thyromegaly. Left ear exam, less swelling, less redness. CHEST: Clear good air entry. CARDIAC: First sound and second sound normal. ABDOMEN: Soft, nontender. EXTREMITIES: No edema. NEUROLOGIC: Normal. IMPRESSION AND PLAN: 1. Acute malignant otitis media externa. Continue IV meropenem, continue Cipro otic drops. 2. Diabetes is controlled. Blood sugar 120s to 100. Continue metformin and insulin coverage. 3. Diarrhea. Her Clostridium difficile came back two times negative and she is on vancomycin 500 b.i.d. We will discuss with Infectious Disease consultation about patient's request . 3. Chronic insomnia and anxiety. Continue Ambien and Valium. 4. Pain management olivo, patient getting morphine 2 mg intravenous q. 4 hours. Continue intravenous fluids for now at 70 mL per hour. Continue gastrointestinal and deep venous thrombosis prophylaxis. Jan Enamorado MD
[2018-01-11] MEDS: Sodium Chloride 0.9% 1,000 ML IV SCH ×2 (02:41→12:57)
--- NOTE | 2018-01-11 03:21 | PN ---
DATE: 01/09/2018 SUBJECTIVE: The patient is stable. No new complaint. No nausea, no vomiting. She indeed have one episode of diarrhea. She is asking to put back the Flagyl. Patient is otherwise stable. PHYSICAL EXAMINATION: As follows; VITAL SIGNS: Temperature is 98, heart rate 52, blood pressure 144/87, respirations 20, saturation 95% on room air. HEENT: Head and neck normal. No JVD. No thyromegaly. Left ear examination by inspection, has less redness, less swelling. CHEST: Clear. Good air entry. CARDIAC: First sound and second sound normal. ABDOMEN: Soft, nontender. EXTREMITIES: No edema. IMPRESSION: 1. Acute otitis media and externa, malignant otitis media and externa. Continue meropenem IV q. 8 hours 1 g plus Cipro otic drops b.i.d. on both ears. 2. Diarrhea, we will observe, she had one episode. Patient had a Clostridium difficile negative. We will repeat Clostridium difficile and we will see how she does. We will monitor her conditions. 3. Obstructive sleep apnea. Continue continuous positive airway pressure. 4. Chronic anxiety, insomnia. Patient will get Ambien 10 mg at night and valium 5 mg b.i.d. Continue current therapy. Continue gastrointestinal and deep venous thrombosis prophylaxis. Follow up clinically. Continue pain medications, morphine 2 mg IV q. 4 hours. Continue intravenous fluids for now. 5. For her diabetes, patient will be maintained on metformin plus insulin coverage. Jan Enamorado MD
[2018-01-11] MEDS: Meropenem 1,000 MG in Sodium Chloride 0.9% 100 ML IVPB SCH ×3 (05:23→21:08)
--- NOTE | 2018-01-11 06:00 | CP.PCM.PN ---
Subjective - Date & Time of Evaluation Date of Evaluation: 01/11/18 Time of Evaluation: 05:59 - Subjective Subjective: #24 angiocath was inserted in right hand dorsum. Objective - Vital Signs/Intake and Output Vital Signs (last 24 hours): Temp Pulse Resp BP Pulse Ox 97.9 F 53 L 20 124/70 97 01/10/18 10:00 01/10/18 10:00 01/10/18 10:00 01/10/18 10:00 01/10/18 10:00 - Medications Medications: Current Medications Ciprofloxacin/Dexamethasone (Ciprodex Otic) 5 drop AU BID [facility] PRN Reason: Protocol Last Admin: 01/10/18 17:16 Dose: 5 drop Diazepam (Valium) 5 mg PO BID [facility] PRN Reason: Protocol Last Admin: 01/10/18 17:19 Dose: 5 mg Diphenhydramine HCl (Benadryl) 50 mg IVP Q4H PRN PRN Reason: Itching / Pruritus Last Admin: 01/11/18 04:14 Dose: 50 mg Gabapentin (Neurontin) 300 mg PO HS [facility] PRN Reason: Protocol Last Admin: 01/10/18 22:20 Dose: 300 mg Heparin Sodium (Porcine) (Heparin) 5,000 units SC Q12 [facility] PRN Reason: Protocol Last Admin: 01/10/18 22:19 Dose: 5,000 units Sodium Chloride (Sodium Chloride 0.9%) 1,000 mls @ 70 mls/hr IV .[id number] [facility] PRN Reason: Protocol Last Admin: 01/11/18 02:41 Dose: 70 mls/hr Meropenem 1,000 mg/ Sodium (Chloride) 100 mls @ 100 mls/hr IVPB Q8 [facility] PRN Reason: Protocol Stop: 01/13/18 22:01 Last Admin: 01/11/18 05:23 Dose: 100 mls/hr Insulin Human Regular (Humulin R Low) 0 units SC ACHS [facility] PRN Reason: Protocol Last Admin: 01/10/18 22:45 Dose: Not Given Metformin HCl (Glucophage) 500 mg PO BID [facility] PRN Reason: Protocol Last Admin: 01/10/18 17:16 Dose: 500 mg Morphine Sulfate (Morphine) 2 mg IVP Q4H PRN PRN Reason: Pain Last Admin: 02/26/18 04:14 Dose: 2 mg Ondansetron HCl (Zofran Inj) 4 mg IVP Q4H PRN; Protocol PRN Reason: Nausea/Vomiting Pantoprazole Sodium (Protonix Ec Tab) 40 mg PO 1600 [facility] PRN Reason: Protocol Last Admin: 01/10/18 17:15 Dose: 40 mg Vancomycin HCl (Vancocin 25 Mg/Ml (Oral Use)) 500 mg PO BID [facility] PRN Reason: Protocol Last Admin: 01/10/18 17:16 Dose: 500 mg Zolpidem Tartrate (Ambien) 10 mg PO HS [facility] PRN Reason: Protocol Last Admin: 01/10/18 22:19 Dose: 10 mg - Labs Labs: 01/07/18 14:05 01/07/18 14:05
[2018-01-11] MEDS: Insulin Reg-LOW-Coverage SC SCH ×4 (06:44→21:59)
[2018-01-11] MEDS: Ciprofloxacin/Dexamethasone OTIC SUSP AU SCH ×2 (11:00→17:22)
[2018-01-11] MEDS: Vancomycin 25 MG/ML PO SCH ×2 (11:00→17:23)
[2018-01-11] MEDS: Pantoprazole 40 mg EC Tab PO SCH (16:17)
[2018-01-12] MEDS: Morphine 2 mg/ml ISec IVP PRN ×3 (01:25→09:32)
[2018-01-12] MEDS: DiphenhydrAMINE 50 mg/ml Inj IVP PRN ×3 (01:25→09:30)
[2018-01-12] MEDS: Meropenem 1,000 MG in Sodium Chloride 0.9% 100 ML IVPB SCH (05:10)
[2018-01-12] MEDS: Sodium Chloride 0.9% 1,000 ML IV SCH (05:11)
[2018-01-12] MEDS: Insulin Reg-LOW-Coverage SC SCH ×4 (06:49→22:31)
[2018-01-12] MEDS: Ciprofloxacin/Dexamethasone OTIC SUSP AU SCH ×2 (09:33→17:34)
[2018-01-12 11:14] VITALS: RESP 18
--- NOTE | 2018-01-12 11:17 | CP.PCM.PN ---
Subjective - Date & Time of Evaluation Date of Evaluation: 01/11/18 Time of Evaluation: 10:35 - Subjective Subjective: Had swelling and redness around IV site, being given warm compress, no fevers, still with ear pain but less than before. Objective - Vital Signs/Intake and Output Vital Signs (last 24 hours): Temp Pulse Resp BP Pulse Ox 97.9 F 53 L 20 124/70 97 01/10/18 10:00 01/10/18 10:00 01/10/18 10:00 01/10/18 10:00 01/10/18 10:00 - Medications Medications: Current Medications Ciprofloxacin/Dexamethasone (Ciprodex Otic) 5 drop AU BID [facility] PRN Reason: Protocol Last Admin: 01/10/18 17:16 Dose: 5 drop Diazepam (Valium) 5 mg PO BID [facility] PRN Reason: Protocol Last Admin: 01/10/18 17:19 Dose: 5 mg Diphenhydramine HCl (Benadryl) 50 mg IVP Q4H PRN PRN Reason: Itching / Pruritus Last Admin: 01/11/18 04:14 Dose: 50 mg Gabapentin (Neurontin) 300 mg PO HS [facility] PRN Reason: Protocol Last Admin: 01/10/18 22:20 Dose: 300 mg Heparin Sodium (Porcine) (Heparin) 5,000 units SC Q12 [facility] PRN Reason: Protocol Last Admin: 01/10/18 22:19 Dose: 5,000 units Sodium Chloride (Sodium Chloride 0.9%) 1,000 mls @ 70 mls/hr IV .[id number] [facility] PRN Reason: Protocol Last Admin: 01/11/18 02:41 Dose: 70 mls/hr Meropenem 1,000 mg/ Sodium (Chloride) 100 mls @ 100 mls/hr IVPB Q8 [facility] PRN Reason: Protocol Stop: 01/13/18 22:01 Last Admin: 01/11/18 05:23 Dose: 100 mls/hr Insulin Human Regular (Humulin R Low) 0 units SC ACHS [facility] PRN Reason: Protocol Last Admin: 01/10/18 22:45 Dose: Not Given Metformin HCl (Glucophage) 500 mg PO BID [facility] PRN Reason: Protocol Last Admin: 01/10/18 17:16 Dose: 500 mg Morphine Sulfate (Morphine) 2 mg IVP Q4H PRN PRN Reason: Pain Last Admin: 01/11/18 04:14 Dose: 2 mg Ondansetron HCl (Zofran Inj) 4 mg IVP Q4H PRN; Protocol PRN Reason: Nausea/Vomiting Pantoprazole Sodium (Protonix Ec Tab) 40 mg PO 1600 [facility] PRN Reason: Protocol Last Admin: 01/10/18 17:15 Dose: 40 mg Vancomycin HCl (Vancocin 25 Mg/Ml (Oral Use)) 500 mg PO BID [facility] PRN Reason: Protocol Last Admin: 01/10/18 17:16 Dose: 500 mg Zolpidem Tartrate (Ambien) 10 mg PO HS [facility] PRN Reason: Protocol Last Admin: 01/10/18 22:19 Dose: 10 mg - Labs Labs: 01/07/18 14:05 01/07/18 14:05 - Constitutional Appears: Non-toxic - Head Exam Head Exam: NORMAL INSPECTION - Respiratory Exam Respiratory Exam: Decreased Breath Sounds - Cardiovascular Exam Cardiovascular Exam: +S1, +S2 - GI/Abdominal Exam GI & Abdominal Exam: Soft. absent: Tenderness Assessment and Plan - Assessment and Plan (Free Text) Plan: Assessment malignant otitis externa, left migraine headache Crohn's disease anxiety disorder anxiety depression history of ESBL E. coli UTI HTN Plan continue Merrem to complete 10-14 days (day 12 today) follow up further ENT recommendations
[2018-01-12] MEDS: Morphine 2 mg/ml ISec SC PRN ×3 (13:43→22:20)
--- NOTE | 2018-01-12 14:33 | PN ---
DATE: 01/11/2018 SUBJECTIVE: Patient is comfortable, stable. No complaints, on IV antibiotics. She does have a few diarrhea episodes; otherwise, she is stable. PHYSICAL EXAMINATION VITAL SIGNS: On 01/11/2018, temperature is 97.6, heart rate 72, blood pressure 103/68, respirations 20 and saturation is 95% on room air. HEAD AND NECK: Normal. No JVD, no thyromegaly. EAR: Not tender. No swelling. No redness. CHEST: Clear, good air entry. CARDIAC: First sound and second sound are normal. ABDOMEN: Soft, nontender. EXTREMITIES: No edema. NEUROLOGIC: Normal. IMPRESSION 1. Acute otitis externa. Continue IV meropenem. The patient is stable as per Infectious Disease consult. We will continue current treatment 10 to 14 days. She is, otherwise, stable. 2. Chronic back pain, chronic insomnia, chronic anxiety. Continue Ambien, Valium and morphine p.r.n. 3. Diabetes type 2, stable, controlled well. Continue metformin and continue current treatment. CURRENT MEDICATIONS: She takes Ambien 10 mg, Benadryl every 4 hours, Ciprodex 5 drops in both ears twice a day, Glucophage 500 mg b.i.d., heparin subcutaneous 5000 international units q. 12, insulin coverage plus meropenem 1 g , IV fluid 70 mL per hour, morphine 2 mg IV q. 4 hours p.r.n., Neurontin 300 mg p.o. at bedtime, Protonix 40 mg once a day, and Zofran p.r.n. Continue current therapy. Follow up clinically. Jan Enamorado MD
[2018-01-12] MEDS: Pantoprazole 40 mg EC Tab PO SCH (17:34)
[2018-01-13] MEDS: Morphine 2 mg/ml ISec SC PRN ×2 (05:20→10:18)
[2018-01-13] MEDS: Insulin Reg-LOW-Coverage SC SCH ×2 (06:37→13:57)
[2018-01-13] MEDS: Ciprofloxacin/Dexamethasone OTIC SUSP AU SCH (10:19)
[2018-01-13 10:25] VITALS: BP 108/67; PULSE 60; TEMP 97.8; O2SAT 96
--- NOTE | 2018-01-14 09:26 | PN ---
DATE: 01/12/2018 SUBJECTIVE: The patient is comfortable, no distress. Denies antibiotics, doing well. IV meropenem plus Ciprodex for her ear. PHYSICAL EXAMINATION VITAL SIGNS: Temperature 97.8, heart rate is 92, blood pressure 117/82, respirations 18, saturating 99% on room air. HEAD AND NECK: Normal. No JVD, no thyromegaly. Left ear is better, improved significantly. CHEST: Clear bilaterally. CARDIAC: First sound and second sound normal. ABDOMEN: Soft, nontender. EXTREMITIES: No edema. NEUROLOGICAL: Normal. LABORATORY DATA: Her last lab shows white count 8, hemoglobin 13, hematocrit 38, platelets 231,000. Last chemistry showed sodium 143, potassium 3.9, chloride 104, bicarbonate 27. BUN 9, creatinine 0.8, blood sugar 116. IMPRESSION AND PLAN 1. Acute severe malignant otitis externa. Continue IV antibiotics, meropenem and Ciprodex, she did well, improved. 2. Diarrhea, improved. Clostridium difficile x2 negative. 3. Chronic back pain and neck pain. Continue her morphine 4 mg IV every 4 hours p.r.n. 4. Chronic anxiety. Continue Valium. 5. Chronic insomnia. Continue Ambien. The patient seems to be doing well and continue current therapy for now. Jan Enamorado MD
--- NOTE | 2018-01-15 04:22 | DS ---
The patient is doing well. She is comfortable. She finished IV antibiotics, 11 days of IV Merrem and she seems stable and ID okayed discharge home on Ciprodex. No other complaints. The patient will be discharged to follow up with ENT, Dr. Box for further evaluation. The patient's course during hospitalization was without complications. She got IV antibiotics. She is on GI and DVT prophylaxis. She did well. C. diff was negative x2. Her blood count was within normal range. No fever and her clinical condition improved significantly. Left ear swelling and redness is gone. PHYSICAL EXAMINATION: VITAL SIGNS: On discharge, temperature 97.8, heart rate 60, blood pressure 108/67, respiration 18, saturation 96% on room air. HEAD AND NECK: Normal. No JVD. No thyromegaly. CHEST: Clear. Good air entry. CARDIAC: First sound and second sound normal. ABDOMEN: Soft, nontender. EXTREMITIES: No edema. NEUROLOGIC: Normal. LABORATORY DATA: Noted for normal chem-7, normal chemistry and normal CBC dated 01/07/2018. DISCHARGE DIAGNOSES: 1. Acute malignant otitis externa. 2. Chronic back pain and leg pain. 3. Chronic anxiety. 4. Chronic insomnia. 5. Vertigo, chronic. 6. Diabetes type 2. 7. The patient has multiple allergies to her medications. 8. Hypertension. PLAN: Discharge the patient back on her medicines which includes metformin 500 b.i.d., hydrochlorothiazide 12.5 mg p.o. daily, Norvasc 2.5 mg p.o. daily, oxycodone 15 mg every 6 hours p.r.n., Ciprodex 5 drops to affected ear b.i.d., Valium 5 mg b.i.d. and then 10 mg p.o. at bedtime, Antivert 12.5 mg q.8 hours. The patient will be discharged and follow up in the office. Jan Enamorado MD
== END 2018-01-13 14:25 | disposition home or self-care (01) | DRG 155 ==
LOC: TRCU 09:41
PROVIDERS: ADMIT Internal Medicine; ATTEND Internal Medicine
PROC: F07Z9FZ Gait Training/Functional Ambulation Treatment using Assistive, Adaptive, Supportive or Protective Equipment (ICD-10-PCS; principal; 2018-01-06)
PROC: F07M6ZZ Therapeutic Exercise Treatment of Musculoskeletal System - Whole Body (ICD-10-PCS; 2018-01-06)
PROC: F08Z1ZZ Dressing Techniques Treatment (ICD-10-PCS; 2018-01-06)
PROC: F08Z2ZZ Grooming/Personal Hygiene Treatment (ICD-10-PCS; 2018-01-06)
PROC: F08Z0ZZ Bathing/Showering Techniques Treatment (ICD-10-PCS; 2018-01-06)
DX: H60.22 Malignant otitis externa, left ear (principal); A04.71 Enterocolitis due to Clostridium difficile, recurrent; E10.22 Type 1 diabetes mellitus with diabetic chronic kidney disease; K50.90 Crohn's disease, unspecified, without complications; H60.509 Unspecified acute noninfective otitis externa, unspecified ear; E03.9 Hypothyroidism, unspecified; E78.00 Pure hypercholesterolemia, unspecified; F31.9 Bipolar disorder, unspecified; F41.9 Anxiety disorder, unspecified; F51.04 Psychophysiologic insomnia; G43.909 Migraine, unspecified, not intractable, without status migrainosus; G47.33 Obstructive sleep apnea (adult) (pediatric); G89.29 Other chronic pain; I12.9 Hypertensive chronic kidney disease with stage 1 through stage 4 chronic kidney disease, or unspecified chronic kidney disease; N18.9 Chronic kidney disease, unspecified; Z87.01 Personal history of pneumonia (recurrent); Z87.440 Personal history of urinary (tract) infections; Z87.442 Personal history of urinary calculi; Z90.49 Acquired absence of other specified parts of digestive tract; Z90.710 Acquired absence of both cervix and uterus; Z91.19 Patient's noncompliance with other medical treatment and regimen; Z88.6 Allergy status to analgesic agent; Z88.5 Allergy status to narcotic agent; Z88.8 Allergy status to other drugs, medicaments and biological substances

== ENCOUNTER 2018-02-11 08:58 | Inpatient (IN) | payer MEDICARE, MEDICAID, OTHER ==
[2018-02-11] MEDS ORDERED: Morphine 4 mg/ml ISec IVP STA ×2 (09:28→11:07)
[2018-02-11] MEDS ORDERED: Sodium Chloride 0.9% 500 ML IV STA (09:28)
[2018-02-11 09:48] LABS: HCG,QUALITATIVE URINE NEGATIVE (NEGATIVE); PH,URINE 7.5 (4.7-8.0); URINE BILIRUBIN NEGATIVE (NEGATIVE); URINE BLOOD NEGATIVE (NEGATIVE); URINE GLUCOSE (UA) NEGATIVE (NEGATIVE); URINE LEUKOCYTE ESTERASE NEGATIVE Leu/uL (NEGATIVE); URINE PROTEIN NEGATIVE mg/dL (<30 mg/dL); URINE UROBILINOGEN 0.2 E.U./dL (<1 E.U./dL)
[2018-02-11 09:49] LABS: URINE APPEARANCE CLEAR (CLEAR); URINE COLOR COLORLESS (YELLOW)
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
[2018-02-11] MEDS ORDERED: DiphenhydrAMINE 50 mg/ml Inj IVP ONE (10:30)
[2018-02-11 10:43] LABS: BASO # 0.02 K/mm3 (0.0-2.0); BASO % 0.2 % (0.0-3.0); EOS # 0.1 (0.0-0.7); EOS % 0.7 % (1.5-5.0); GRAN # 6.41 (1.4-6.5); HEMOGLOBIN 13.8 g/dL (12.0-16.0); LYMPH % 22.9 % (22.0-35.0); MEAN CELL VOLUME 89.9 fl (80.0-105.0); MEAN CORPUSCULAR HEMOGLOBIN 31.8 pg (25.0-35.0); MEAN CORPUSCULAR HGB CONC 35.4 g/dl (31.0-37.0); MEAN PLATELET VOLUME 10.4 fl (7.0-11.0); MONO # 0.4 (0.1-0.6); MONO % 4.2 % (1.0-6.0); RBC 4.34 10^6/uL (3.5-6.1); RED CELL DISTRIBUTION WIDTH 13.2 % (11.5-14.5); WHITE BLOOD COUNT 8.9 10^3/ul (4.5-11.0)
[2018-02-11 10:52] LABS: ALB/GLOB RATIO 1.4 (1.1-1.8); ALBUMIN 4.4 g/dL (3.0-4.8); ALT/SGPT 19 U/L (7-56); AST/SGOT 18 U/L (14-36); BLOOD UREA NITROGEN 17 mg/dL (7-21); CALCIUM 10.1 mg/dL (8.4-10.5); GFR AFRICAN-AMERICAN > 60; GFR NON-AFRICAN AMERICAN > 60
[2018-02-11] MEDS ORDERED: Morphine 2 mg/ml ISec IVP STA (12:03)
--- NOTE | 2018-02-11 12:16 | CT ---
PROCEDURE: CT Abdomen and Pelvis without intravenous contrast HISTORY: left flank pain COMPARISON: None. TECHNIQUE: Without contrast. Contrast Dose: Radiation dose: Total exam DLP = Total exam DLP = 692 mGy-cm. This CT exam was performed using one or more of the following dose reduction techniques: Automated exposure control, adjustment of the mA and/or kV according to patient size, and/or use of iterative reconstruction technique. FINDINGS: LOWER THORAX: Unremarkable. LIVER: Unremarkable. No gross lesion or ductal dilatation. GALLBLADDER AND BILE DUCTS: Gallbladder removed PANCREAS: Unremarkable. No gross lesion or ductal dilatation. SPLEEN: Unremarkable. ADRENALS: Unremarkable. No mass. KIDNEYS AND URETERS: There is a 7 mm stone in the upper pole of the right kidney. Scattered smaller stones are also seen. There is mild hydronephrosis and hydroureter. There is a 3.8 mm stone in the right distal ureter at the level of the mid sacrum. There is a smaller adjacent 1 mm stone. Findings are seen on images 133 and 134 of series 3 and coronal image 59. VASCULATURE: Unremarkable. No aortic aneurysm. BOWEL: Unremarkable. No obstruction. No gross mural thickening. APPENDIX: Unremarkable. Normal appendix. PERITONEUM: Unremarkable. No free fluid. No free air. LYMPH NODES: Unremarkable. No enlarged lymph nodes. BLADDER: Unremarkable. REPRODUCTIVE: Unremarkable. BONES: No acute fracture. OTHER FINDINGS: None. IMPRESSION: There is a 7 mm stone in the upper pole of the right kidney. Scattered smaller stones are also seen. There is mild hydronephrosis and hydroureter. There is a 3.8 mm stone in the right distal ureter at the level of the mid sacrum. There is a smaller adjacent 1 mm stone.
[2018-02-11] MEDS ORDERED: Sodium Chloride 0.9% 1,000 ML IV SCH (14:15)
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
[2018-02-11] MEDS ORDERED: Pantoprazole 40 mg EC Tab PO ONE (15:35)
[2018-02-11] MEDS ORDERED: Morphine 4 mg/ml ISec IVP PRN (16:50)
[2018-02-11 17:38] VITALS: O2SAT 96
[2018-02-11] MEDS: DiphenhydrAMINE 50 mg/ml Inj IVP PRN ×2 (17:54→22:36)
[2018-02-11] MEDS: Ciprofloxacin/Dexamethasone OTIC SUSP AS SCH (17:54)
[2018-02-11] MEDS ORDERED: Ciprofloxacin/Dexamethasone OTIC SUSP AU SCH (18:00)
[2018-02-11] MEDS: Insulin Reg-LOW-Coverage SC SCH ×2 (18:39→22:34)
[2018-02-11 19:03] VITALS: BMI 29.2
[2018-02-11] MEDS ORDERED: Influenza Vaccine 60 mcg/0.5 mL SYR (4YR UP) IM ONE (19:03)
[2018-02-11] MEDS ORDERED: Pneumococcal 23-Valent Vaccine IM ONE (19:03)
[2018-02-11] MEDS: Morphine 4 mg/ml ISec IVP PRN (20:37)
[2018-02-11] MEDS: oxyCODONE 15 mg Immediate Release Tab PO PRN (22:37)
[2018-02-12] MEDS: Morphine 4 mg/ml ISec IVP PRN ×4 (03:08→21:33)
[2018-02-12] MEDS: DiphenhydrAMINE 50 mg/ml Inj IVP PRN ×5 (03:10→23:28)
[2018-02-12] MEDS: oxyCODONE 15 mg Immediate Release Tab PO PRN ×2 (04:33→12:14)
[2018-02-12 06:25] LABS: BASO # 0.02 K/mm3 (0.0-2.0); BASO % 0.2 % (0.0-3.0); EOS # 0.2 (0.0-0.7); EOS % 1.9 % (1.5-5.0); GRAN # 3.84 (1.4-6.5); GRAN % 43.4 % (50.0-68.0); HEMOGLOBIN 13.5 g/dL (12.0-16.0); LYMPH # 4.3 (1.2-3.4); LYMPH % 48.6 % (22.0-35.0); MEAN CELL VOLUME 89.9 fl (80.0-105.0); MEAN CORPUSCULAR HEMOGLOBIN 31.8 pg (25.0-35.0); MEAN CORPUSCULAR HGB CONC 35.3 g/dl (31.0-37.0); MEAN PLATELET VOLUME 10.3 fl (7.0-11.0); MONO # 0.5 (0.1-0.6); MONO % 5.9 % (1.0-6.0); RBC 4.25 10^6/uL (3.5-6.1); RED CELL DISTRIBUTION WIDTH 13.3 % (11.5-14.5); WHITE BLOOD COUNT 8.9 10^3/ul (4.5-11.0)
[2018-02-12 07:19] LABS: ALB/GLOB RATIO 1.3 (1.1-1.8); ALBUMIN 3.8 g/dL (3.0-4.8); ALT/SGPT 21 U/L (7-56); AST/SGOT 24 U/L (14-36); BLOOD UREA NITROGEN 13 mg/dL (7-21); CALCIUM 9.7 mg/dL (8.4-10.5); GFR AFRICAN-AMERICAN > 60; GFR NON-AFRICAN AMERICAN > 60
[2018-02-12] MEDS ORDERED: Pantoprazole 40 mg EC Tab PO SCH (07:30)
[2018-02-12 07:31] VITALS: RESP 20
[2018-02-12] MEDS: Insulin Reg-LOW-Coverage SC SCH ×4 (08:14→22:11)
--- NOTE | 2018-02-12 09:14 | CT ---
PROCEDURE: CT NECK WITHOUT CONTRAST HISTORY: L neck swelling COMPARISON: 01/01/2018 TECHNIQUE: CT of the neck without intravenous contrast. Coronal and sagittal reformats generated. Radiation dose: DLP 530 mGy-cm This CT exam was performed using one or more of the following dose reduction techniques: Automated exposure control, adjustment of the mA and/or kV according to patient size, and/or use of iterative reconstruction technique. FINDINGS: NASOPHARYNX: Unremarkable. SUPRAHYOID NECK: Unremarkable oropharynx, oral cavity, parapharyngeal space and retropharyngeal space. INFRAHYOID NECK: Unremarkable larynx, hypopharynx, and supraglottic space. Vocal cords intact. MASS: None. GLANDS: Parotid and submandibular glands unremarkable. Normal size thyroid gland, without nodule. LYMPH NODES: Mild bilateral cervical adenopathy CERVICAL SPINE: No fracture or focal lesion. OTHER FINDINGS: None. IMPRESSION: Mild cervical adenopathy. The study is otherwise unremarkable
[2018-02-12] MEDS: Ciprofloxacin/Dexamethasone OTIC SUSP AS SCH ×2 (12:14→17:12)
--- NOTE | 2018-02-12 13:38 | RAD ---
HISTORY: Abdominal pain/ renal colic COMPARISON: 12/19/2014 FINDINGS: BOWEL: Normal. No obstruction. No free air. BONES: Normal. OTHER FINDINGS: None. IMPRESSION: No active disease.
[2018-02-12] MEDS ORDERED: Pantoprazole 40 mg EC Tab PO ONE (14:44)
--- NOTE | 2018-02-12 15:28 | CP.PCM.PN ---
<Murray Meek - Last Filed: 02/12/18 15:42> Subjective - Date & Time of Evaluation Date of Evaluation: 02/12/18 Time of Evaluation: 15:19 - Subjective Subjective: Medicine Progress Note: Patient seen and assessed at bedside. Patient had pain medication dosage increased overnight for increased pain. Patient continues to endorse that her pain is not controlled well enough. She endorses right sided flank pain that was previously notable to be on her left side. She denies any further vomiting since admission. She denies any fever, chills, headache, chest pain, SOB, cough , wheezing, abdominal pain, N/V/D/C, hematuria, pyuria, increased urinary frequency, skin changes, or any numbness/tingling/weakness of any extremity. Objective - Vital Signs/Intake and Output Vital Signs (last 24 hours): Temp Pulse Resp BP Pulse Ox 97.8 F 74 20 127/71 96 02/12/18 07:30 02/12/18 07:30 02/12/18 07:30 02/12/18 09:16 02/12/18 07:30 - Medications Medications: Current Medications Amlodipine Besylate (Norvasc) 2.5 mg PO DAILY [facility] Last Admin: 02/12/18 09:16 Dose: 2.5 mg Ciprofloxacin/Dexamethasone (Ciprodex Otic) 0 drop BID [facility] Last Admin: 02/12/18 12:14 Dose: 4 drop Diazepam (Valium) 5 mg PO DAILY [facility] PRN Reason: Protocol Last Admin: 02/12/18 09:17 Dose: 5 mg Diphenhydramine HCl (Benadryl) 25 mg IVP Q4H PRN PRN Reason: Itching / Pruritus Last Admin: 02/12/18 08:13 Dose: 25 mg Heparin Sodium (Porcine) (Heparin) 5,000 units SC Q8 [facility] PRN Reason: Protocol Last Admin: 02/12/18 14:06 Dose: 5,000 units Sodium Chloride (Sodium Chloride 0.9%) 1,000 mls @ 100 mls/hr IV .Q10H [facility] Last Admin: 02/12/18 12:13 Dose: 100 mls/hr Ibuprofen (Motrin Tab) 600 mg PO Q6H PRN PRN Reason: Fever >100.4 F Insulin Human Regular (Humulin R Low) 0 units SC ACHS [facility] PRN Reason: Protocol Last Admin: 02/12/18 14:07 Dose: Not Given Morphine Sulfate (Morphine) 2 mg IVP Q6H PRN PRN Reason: Pain, moderate (4-7) Last Admin: 02/12/18 09:15 Dose: 2 mg Ondansetron HCl (Zofran Inj) 4 mg IVP Q6H PRN PRN Reason: Nausea/Vomiting Last Admin: 02/12/18 08:20 Dose: 4 mg Pantoprazole Sodium (Protonix Ec Tab) 40 mg PO ACB [facility] Tamsulosin HCl (Flomax) 0.4 mg PO DAILY [facility] Last Admin: 02/12/18 09:15 Dose: 0.4 mg Zolpidem Tartrate (Ambien) 10 mg PO HS PRN; Protocol PRN Reason: Insomnia Last Admin: 02/11/18 23:14 Dose: 10 mg - Constitutional Appears: Non-toxic, No Acute Distress - Head Exam Head Exam: ATRAUMATIC, NORMOCEPHALIC - Eye Exam Eye Exam: EOMI, Normal appearance Pupil Exam: NORMAL ACCOMODATION, PERRL - ENT Exam ENT Exam: Mucous Membranes Moist Additional comments: TTP to external left ear; increased swelling noted to posterior left mandible - Neck Exam Neck Exam: Full ROM. absent: Tenderness Additional comments: See above noted on increased swelling to posterior left mandible - Respiratory Exam Respiratory Exam: Clear to Ausculation Bilateral, NORMAL BREATHING PATTERN. absent: Accessory Muscle Use, Decreased Breath Sounds, Rales, Rhonchi, Wheezes, Respiratory Distress - Cardiovascular Exam Cardiovascular Exam: REGULAR RHYTHM, RRR, +S1, +S2. absent: Bradycardia, Tachycardia, Clicks, Diastolic murmur, Gallop, Irregular Rhythm, JVD, Rubs, +S4 , Murmur - GI/Abdominal Exam GI & Abdominal Exam: Soft, Tenderness (TTP out of proportion to clinical evaluation), Normal Bowel Sounds. absent: Distended, Firm, Guarding, Rigid, Rebound - Extremities Exam Extremities Exam: Full ROM, Normal Capillary Refill, Normal Inspection. absent : Calf Tenderness, Joint Swelling, Pedal Edema, Tenderness - Back Exam Back Exam: CVA tenderness (R) - Neurological Exam Neurological Exam: Alert, Awake, Oriented x3 - Psychiatric Exam Psychiatric exam: Normal Affect, Normal Mood - Skin Skin Exam: Dry, Intact, Normal Color, Warm Assessment and Plan - Assessment and Plan (Free Text) Assessment: 42 year old female with a past medical history significant for HTN, kidney stones s/p lithrotripsy, NIDDM, chronic left otitis externa, anxiety, depression , insomnia and chronic pain with history of pain seeking behavior as per previous records admitted for intractable abdominal pain and swelling in left neck. Plan: 1. Hematemesis -No episodes since admission -Hemoglobin/Hematocrit stable and patient tolerating PO intake -Continue Zofran PRN for N/V -Heart healthy diet -Recommend that patient continue scheduled outpatient GI follow up post discharge 2. Nephrolithiasis with associated Renal Colic -CT Abdomen/Pelvis showed 3.5mm renal stone in distal right ureter with adjacent 1mm stone with mild hydronephrosis/hydroureter and 7mm stone in left renal pelvis -Abdominal Flat Plate showing no acute abnormal findings or free air -UA within normal limits -Flomax 0.4mg PO daily -Morphine and Motrin for pain control -Normal Saline at 100mls/hr -Urology consulted, all recommendations appreciated 3. Neck Swelling -CT Soft Tissue Neck showed mild bilateral cervical adenopathy -Afebrile and without leukocytosis, tachycardia or tachypnea -Recommend continued outpatient ENT follow up 4. Chronic Left Otitis Externa -Continue Ciprodex -Recommend continued outpatient ENT follow up 5. History of DM2 -ISS-Low and Accuchecks ACHS -Carbohydrate consistent diet 6. History of HTN -Continue home Norvasc 7. History of Anxiety -Continue home Valium 8. History of Insomnia -Continue home Ambien 9. History of Pain Seeking Behavior -Will avoid increasing dosages and frequencies of narcotic pain medications whenever possible -Non-narcotic pain control whenever clinically indicated GI Prophylaxis: Protonix DVT Prophylaxis: Heparin Patient seen and case discussed with attending, Dr. Aayush Gagnon. <Aayush Gagnon - Last Filed: 02/13/18 16:30> Objective - Vital Signs/Intake and Output Vital Signs (last 24 hours): Temp Pulse Resp BP Pulse Ox 97.6 F 88 20 142/80 96 02/12/18 16:00 02/12/18 16:00 02/12/18 16:00 02/13/18 09:29 02/12/18 16:00 Intake and Output: 02/13/18 02/13/18 06:59 18:59 Intake Total 840 Output Total 2150 Balance -1310 - Labs Labs: 02/13/18 07:00 02/13/18 07:00 Attending/Attestation - Attestation I have personally seen and examined this patient.: Yes I have fully participated in the care of the patient.: Yes I have reviewed all pertinent clinical information, including history, physical exam and plan: Yes Notes (Text): I have seen and examined the patient at bedside. Agree with the above note with the following additions/ exceptions: Briefly this is 42 year old with history of HTN, kidney stones s/p lithrotripsy, NIDDM, L otitis externa, anxiety, depression, insomnia and chronic pain with history of pain seeking behavior as per previous records who came for evaluation of intractable abdominal pain, nausea, vomiting and mild swelling in L face. Maxillofacial CT revealed mild cervical lymphadenopathy. Patient was seen by ENT 1 day [employer] and was given ciprodex. Patient is afebrile, non toxic and has no leukocytosis. Patient complains of mostly right and left flank pain. CT revealed 7mm on left renal pelvis. Will continue to hydrate the patient. Will start flomax. Urology consult will be called. Patient will be started on CLD. Upon discharge patient will follow up with Dr Enamorado. Dr Aayush Gagnon
[2018-02-12 17:54] VITALS: PULSE 88; TEMP 97.6
[2018-02-13] MEDS: Morphine 4 mg/ml ISec IVP PRN ×2 (03:19→09:30)
[2018-02-13] MEDS: DiphenhydrAMINE 50 mg/ml Inj IVP PRN ×3 (03:22→12:45)
[2018-02-13] MEDS ORDERED: Pantoprazole 40 mg EC Tab PO SCH (07:30)
[2018-02-13 07:37] LABS: BASO # 0.02 K/mm3 (0.0-2.0); BASO % 0.3 % (0.0-3.0); EOS # 0.2 (0.0-0.7); EOS % 1.9 % (1.5-5.0); GRAN # 3.8 (1.4-6.5); GRAN % 48.3 % (50.0-68.0); HEMOGLOBIN 14.1 g/dL (12.0-16.0); LYMPH # 3.4 (1.2-3.4); LYMPH % 43.1 % (22.0-35.0); MEAN CELL VOLUME 89.6 fl (80.0-105.0); MEAN CORPUSCULAR HGB CONC 35.7 g/dl (31.0-37.0); MEAN PLATELET VOLUME 10.7 fl (7.0-11.0); MONO # 0.5 (0.1-0.6); MONO % 6.4 % (1.0-6.0); RBC 4.41 10^6/uL (3.5-6.1); RED CELL DISTRIBUTION WIDTH 13.1 % (11.5-14.5); WHITE BLOOD COUNT 7.9 10^3/ul (4.5-11.0)
[2018-02-13 07:54] LABS: ALB/GLOB RATIO 1.4 (1.1-1.8); ALBUMIN 4.1 g/dL (3.0-4.8); ALT/SGPT 31 U/L (7-56); AST/SGOT 22 U/L (14-36); BLOOD UREA NITROGEN 12 mg/dL (7-21); GFR AFRICAN-AMERICAN > 60; GFR NON-AFRICAN AMERICAN > 60
[2018-02-13] MEDS: Insulin Reg-LOW-Coverage SC SCH ×2 (08:27→12:33)
[2018-02-13] MEDS: Ciprofloxacin/Dexamethasone OTIC SUSP AS SCH (09:29)
[2018-02-13 09:33] VITALS: BP 142/80
--- NOTE | 2018-02-13 13:22 | CP.PCM.DIS ---
Provider - Provider Date of Admission: 02/12/18 14:07 Attending physician: Aayush Gagnon MD Hospital Course - Lab Results Lab Results: Most Recent Lab Values WBC 7.9 10^3/ul (4.5-11.0) 02/13/18 07:00 RBC 4.41 10^6/uL (3.5-6.1) 02/13/18 07:00 Hgb 14.1 g/dL (12.0-16.0) 02/13/18 07:00 Hct 39.5 % (36.0-48.0) 02/13/18 07:00 MCV 89.6 fl (80.0-105.0) 02/13/18 07:00 MCH 32.0 pg (25.0-35.0) 02/13/18 07:00 MCHC 35.7 g/dl (31.0-37.0) 02/13/18 07:00 RDW 13.1 % (11.5-14.5) 02/13/18 07:00 Plt Count 238 10^3/uL (120.0-450.0) 02/13/18 07:00 MPV 10.7 fl (7.0-11.0) 02/13/18 07:00 Gran % 48.3 % (50.0-68.0) L 02/13/18 07:00 Lymph % (Auto) 43.1 % (22.0-35.0) H 02/13/18 07:00 [place] % (Auto) 6.4 % (1.0-6.0) H 02/13/18 07:00 Eos % (Auto) 1.9 % (1.5-5.0) 02/13/18 07:00 Baso % (Auto) 0.3 % (0.0-3.0) 02/13/18 07:00 Gran # 3.80 (1.4-6.5) 02/13/18 07:00 Lymph # (Auto) 3.4 (1.2-3.4) 02/13/18 07:00 [place] # (Auto) 0.5 (0.1-0.6) 02/13/18 07:00 Eos # (Auto) 0.2 (0.0-0.7) 02/13/18 07:00 Baso # (Auto) 0.02 K/mm3 (0.0-2.0) 02/13/18 07:00 Sodium 143 mmol/L (132-148) 02/13/18 07:00 Potassium 3.6 mmol/L (3.6-5.0) 02/13/18 07:00 Chloride 106 mmol/L (98-107) 02/13/18 07:00 Carbon Dioxide 26 mmol/L (21-33) 02/13/18 07:00 Anion Gap 14 (10-20) 02/13/18 07:00 BUN 12 mg/dL (7-21) 02/13/18 07:00 Creatinine 1.0 mg/dl (0.7-1.2) 02/13/18 07:00 Est GFR ( Amer) > 60 02/13/18 07:00 Est GFR (Non-Af Amer) > 60 02/13/18 07:00 POC Glucose (mg/dL) 190 mg/dL (65-110) H 02/13/18 11:34 Random Glucose 103 mg/dL (70-110) 02/13/18 07:00 Calcium 10.0 mg/dL (8.4-10.5) 02/13/18 07:00 Total Bilirubin 0.4 mg/dL (0.2-1.3) 02/13/18 07:00 AST 22 U/L (14-36) 02/13/18 07:00 ALT 31 U/L (7-56) 02/13/18 07:00 Alkaline Phosphatase 63 U/L (38-126) 02/13/18 07:00 Total Protein 7.2 g/dL (5.8-8.3) 02/13/18 07:00 Albumin 4.1 g/dL (3.0-4.8) 02/13/18 07:00 Globulin 3.0 gm/dL 02/13/18 07:00 Albumin/Globulin Ratio 1.4 (1.1-1.8) 02/13/18 07:00 Urine Color Colorless (YELLOW) 02/11/18 09:37 Urine Appearance Clear (CLEAR) 02/11/18 09:37 Urine pH 7.5 (4.7-8.0) 02/11/18 09:37 Ur Specific [place] 1.010 (1.005-1.035) 02/11/18 09:37 Urine Protein Negative mg/dL (<30 mg/dL) 02/11/18 09:37 Urine Glucose (UA) Negative mg/dL (NEGATIVE) 02/11/18 09:37 Urine Ketones Negative mg/dL (NEGATIVE) 02/11/18 09:37 Urine Blood Negative (NEGATIVE) 02/11/18 09:37 Urine Nitrate Negative (NEGATIVE) 02/11/18 09:37 Urine Bilirubin Negative (NEGATIVE) 02/11/18 09:37 Urine Urobilinogen 0.2 E.U./dL (<1 E.U./dL) 02/11/18 09:37 Ur Leukocyte Esterase Negative Viktor/uL (NEGATIVE) 02/11/18 09:37 Urine HCG, Qual Negative (NEGATIVE) 02/11/18 09:37 Blood Type A POSITIVE 02/11/18 10:30 Antibody Screen Negative 02/11/18 10:30 BBK History Checked Patient has bt 02/11/18 10:30 Discharge Exam - Head Exam Head Exam: ATRAUMATIC, NORMOCEPHALIC Discharge Plan - Discharge Medications Prescriptions: Tamsulosin [Flomax] 0.4 mg PO DAILY #20 cap - Follow Up Plan Condition: FAIR Disposition: HOME/ ROUTINE Instructions: Kidney Stones (DC), Kidney Stones (GEN), Renal Colic (GEN) Additional Instructions: Please follow up with Dr. Banuelos, the urologist, on Thursday or Thursday. You can call him directly on his cell phone number: [phone] Please follow up with Dr. Corbin Please follow up with your ENT physician regarding your ear discharge Should your symptoms return or worsen, please return to the ED immediately
== END 2018-02-13 14:38 | disposition home or self-care (01) | DRG 694 ==
LOC: ED 08:58 → ERH 13:44 → 3RNO 14:27 → OBSVTOIN 02-12 14:07
PROVIDERS: ADMIT Hospitalist; ATTEND Hospitalist
DX: N13.2 Hydronephrosis with renal and ureteral calculous obstruction (principal); I12.9 Hypertensive chronic kidney disease with stage 1 through stage 4 chronic kidney disease, or unspecified chronic kidney disease; N18.9 Chronic kidney disease, unspecified; E11.22 Type 2 diabetes mellitus with diabetic chronic kidney disease; H60.62 Unspecified chronic otitis externa, left ear; R51 Headache; F31.9 Bipolar disorder, unspecified; G47.00 Insomnia, unspecified; F41.0 Panic disorder [episodic paroxysmal anxiety]; G89.29 Other chronic pain; Z79.84 Long term (current) use of oral hypoglycemic drugs

== ENCOUNTER 2018-03-02 04:49 | Emergency (ER) | payer MEDICARE, OTHER ==
[2018-03-02 05:35] VITALS: TEMP 98.6; O2SAT 99
[2018-03-02] MEDS ORDERED: Sodium Chloride 0.9% 1,000 ML IV STA (05:47)
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
[2018-03-02] MEDS ORDERED: Morphine 4 mg/ml ISec ONE (07:41)
[2018-03-02 08:31] LABS: BASO # 0.01 K/mm3 (0.0-2.0); BASO % 0.1 % (0.0-3.0); EOS # 0.2 (0.0-0.7); EOS % 1.8 % (1.5-5.0); GRAN # 5.61 (1.4-6.5); GRAN % 59.9 % (50.0-68.0); HEMOGLOBIN 13.8 g/dL (12.0-16.0); LYMPH # 2.9 (1.2-3.4); LYMPH % 30.9 % (22.0-35.0); MEAN CELL VOLUME 87.9 fl (80.0-105.0); MEAN CORPUSCULAR HGB CONC 36.4 g/dl (31.0-37.0); MEAN PLATELET VOLUME 10.5 fl (7.0-11.0); MONO # 0.7 (0.1-0.6); MONO % 7.3 % (1.0-6.0); RBC 4.31 10^6/uL (3.5-6.1); RED CELL DISTRIBUTION WIDTH 12.7 % (11.5-14.5); WHITE BLOOD COUNT 9.4 10^3/ul (4.5-11.0)
[2018-03-02 08:34] LABS: PH,URINE 6.5 (4.7-8.0); URINE BILIRUBIN NEGATIVE (NEGATIVE); URINE BLOOD SMALL (NEGATIVE); URINE GLUCOSE (UA) NEGATIVE (NEGATIVE); URINE LEUKOCYTE ESTERASE MODERATE Leu/uL (NEGATIVE); URINE PROTEIN 100 mg/dL (<30 mg/dL); URINE UROBILINOGEN 0.2 E.U./dL (<1 E.U./dL)
[2018-03-02 08:36] LABS: URINE APPEARANCE CLEAR (CLEAR); URINE COLOR YELLOW (YELLOW)
[2018-03-02 08:40] LABS: INR 0.97 (0.93-1.08); PROTHROMBIN TIME 11.1 SECONDS (9.4-12.5)
[2018-03-02 08:44] LABS: URINE BACTERIA MANY (NEG); URINE WBC 15 - 20 /hpf (0-6)
[2018-03-02 08:45] LABS: ALB/GLOB RATIO 1.4 (1.1-1.8); ALBUMIN 4.8 g/dL (3.0-4.8); URINE AMORPHOUS SEDIMENT FEW; URINE COARSE GRANULAR CAST TRACE /hpf (0-2)
--- NOTE | 2018-03-02 09:04 | CT ---
PROCEDURE: CT Abdomen and Pelvis without intravenous contrast HISTORY: Bilateral Urethral Stents CO Severe Pain COMPARISON: 02/11/2018. TECHNIQUE: CT scan of the abdomen and pelvis was performed without administration of intravenous contrast. Oral contrast was not administered. Coronal and sagittal reformatted images were obtained. . Radiation dose: Total exam DLP = Total exam DLP = 597.51 mGy-cm. This CT exam was performed using one or more of the following dose reduction techniques: Automated exposure control, adjustment of the mA and/or kV according to patient size, and/or use of iterative reconstruction technique. FINDINGS: LOWER THORAX: The lung bases are clear. LIVER: Normal in size. No gross lesion or ductal dilatation. GALLBLADDER AND BILE DUCTS: Surgically absent. PANCREAS: Normal in size. No gross lesion or ductal dilatation. SPLEEN: Normal in size. ADRENALS: No discrete nodule. KIDNEYS AND URETERS: Right kidney: Normal in size. There is a 7 mm nonobstructing stone in the upper pole. Additionally there are punctate nonobstructing stones in the kidney. A pelviureteral stent remains in customary position. There is mild fullness in the collecting system and mild dilatation of the ureteral, the previously demonstrated distal ureteral stone is no longer visualized the Left kidney: Normal in size. There are punctate nonobstructing stones. No hydronephrosis. No obstructive uropathy. VASCULATURE: No aortic aneurysm. BOWEL: The small bowel loops are normal in caliber. There is fluid in the small bowel loops and fecalization of distal small bowel contents. There is large amount of stool in the colon. There is fecal stasis in the rectum. . APPENDIX: No inflammatory changes in the right lower quadrant. PERITONEUM: No free fluid. No free air. LYMPH NODES: No enlarged lymph nodes. BLADDER: Normal in appearance. REPRODUCTIVE: The uterus is normal in size. BONES: No acute fracture. Status post posterior spinal fixation at L4-5 and L5. OTHER FINDINGS: None. IMPRESSION: 1. The right pelviureteral stent remains in customary position. 7 mm nonobstructing stone in the upper pole of the right kidney. No obstructive uropathy. Mild fullness in the right collecting system and mild dilatation of the right ureteral. The previously demonstrated right distal ureteral stone is no longer visualized. 2. Punctate nonobstructing stones in both kidneys. 3. Severe constipation and fecalization of distal small bowel contents. No evidence of bowel obstruction.
[2018-03-02 10:00] VITALS: BP 122/69; PULSE 68; RESP 18
--- NOTE | 2018-03-02 21:32 | CARD ---
APPROVED REPORT EKG Measurement Heart [id number] SD 150P41 [id number] <Conclusion> Normal sinus rhythm Possible Left atrial enlargement Prolonged QT Abnormal ECG
== END 2018-03-02 10:00 | disposition home or self-care (01) ==
LOC: ED 04:49
DX: R10.9 Unspecified abdominal pain (principal); E11.9 Type 2 diabetes mellitus without complications
CPT/HCPCS: 74176; 80053; 81001; 81025; 84702; 85025; 85610; 93005; 96361; 96374; 96375; 99283; C9113; J2270; J2405; J7040

== ENCOUNTER 2018-05-03 23:55 | Observation (INO) | payer MEDICARE, OTHER ==
[2018-05-04 00:10] VITALS: BP 137/97; TEMP 98.9; O2SAT 98
[2018-05-04] MEDS ORDERED: Morphine 4 mg/ml ISec IVP STA (00:37)
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
[2018-05-04] MEDS ORDERED: DiphenhydrAMINE 50 mg/ml Inj IVP STA (01:32)
[2018-05-04 01:39] LABS: PH,URINE 6.5 (4.7-8.0); URINE BILIRUBIN NEGATIVE (NEGATIVE); URINE BLOOD NEGATIVE (NEGATIVE); URINE GLUCOSE (UA) NEGATIVE (NEGATIVE); URINE LEUKOCYTE ESTERASE TRACE Leu/uL (NEGATIVE); URINE PROTEIN NEGATIVE mg/dL (<30 mg/dL); URINE UROBILINOGEN 0.2 E.U./dL (<1 E.U./dL)
[2018-05-04 01:40] LABS: BASO # 0.03 K/mm3 (0.0-2.0); BASO % 0.2 % (0.0-3.0); EOS # 0.1 (0.0-0.7); EOS % 0.4 % (1.5-5.0); GRAN # 8.73 (1.4-6.5); HEMOGLOBIN 13.7 g/dL (12.0-16.0); LYMPH % 24.2 % (22.0-35.0); MEAN CELL VOLUME 88.7 fl (80.0-105.0); MEAN CORPUSCULAR HEMOGLOBIN 31.7 pg (25.0-35.0); MEAN CORPUSCULAR HGB CONC 35.8 g/dl (31.0-37.0); MEAN PLATELET VOLUME 10.4 fl (7.0-11.0); MONO # 0.5 (0.1-0.6); MONO % 4.2 % (1.0-6.0); RBC 4.32 10^6/uL (3.5-6.1); RED CELL DISTRIBUTION WIDTH 13.4 % (11.5-14.5); WHITE BLOOD COUNT 12.3 10^3/ul (4.5-11.0)
[2018-05-04 01:41] LABS: URINE APPEARANCE CLEAR (CLEAR); URINE COLOR STRAW (YELLOW)
[2018-05-04] MEDS ORDERED: Iohexol 350 MG/100 ML VIAL ONE (01:44)
[2018-05-04 01:45] LABS: ALB/GLOB RATIO 1.4 (1.1-1.8); ALBUMIN 4.6 g/dL (3.0-4.8); ALT/SGPT 25 U/L (7-56); AST/SGOT 27 U/L (14-36); BLOOD UREA NITROGEN 17 mg/dL (7-21); CALCIUM 9.8 mg/dL (8.4-10.5); GFR AFRICAN-AMERICAN > 60; GFR NON-AFRICAN AMERICAN > 60; LIPASE 258 U/L (23-300)
[2018-05-04 01:47] LABS: INR 0.99 (0.93-1.08); PARTIAL THROMBOPLASTIN TIME 24.7 Seconds (25.1-36.5); PROTHROMBIN TIME 11.3 SECONDS (9.4-12.5)
[2018-05-04 01:52] LABS: URINE EPITHELIAL CELLS 0 - 2 /hpf (0-5); URINE RBC 0 - 2 /hpf (0-2)
[2018-05-04 01:53] LABS: URINE BACTERIA RARE (NEG)
[2018-05-04 01:56] LABS: TROPONIN I < 0.01 ng/mL
[2018-05-04] MEDS ORDERED: Potassium Chloride 20 mEq ER Tab PO STA (02:07)
[2018-05-04] MEDS ORDERED: HYDROmorphone 0.5 mg/0.5 ml ISec IVP STA (03:02)
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
[2018-05-04 06:33] VITALS: RESP 17; BMI 29.5
[2018-05-04] MEDS ORDERED: Pneumococcal 23-Valent Vaccine IM ONE (06:33)
[2018-05-04 07:37] LABS: BASO # 0.02 K/mm3 (0.0-2.0); BASO % 0.1 % (0.0-3.0); EOS # 0.1 (0.0-0.7); EOS % 0.6 % (1.5-5.0); GRAN # 8.49 (1.4-6.5); GRAN % 57.9 % (50.0-68.0); HEMOGLOBIN 13.9 g/dL (12.0-16.0); LYMPH # 5.3 (1.2-3.4); LYMPH % 35.9 % (22.0-35.0); MEAN CELL VOLUME 88.3 fl (80.0-105.0); MEAN CORPUSCULAR HEMOGLOBIN 31.8 pg (25.0-35.0); MEAN PLATELET VOLUME 10.4 fl (7.0-11.0); MONO # 0.8 (0.1-0.6); MONO % 5.5 % (1.0-6.0); RBC 4.37 10^6/uL (3.5-6.1); RED CELL DISTRIBUTION WIDTH 13.6 % (11.5-14.5); WHITE BLOOD COUNT 14.7 10^3/ul (4.5-11.0)
[2018-05-04 08:00] LABS: BLOOD UREA NITROGEN 16 mg/dL (7-21)
[2018-05-04 08:01] LABS: ALB/GLOB RATIO 1.4 (1.1-1.8); ALBUMIN 4.8 g/dL (3.0-4.8); ALT/SGPT 25 U/L (7-56); AST/SGOT 25 U/L (14-36); CALCIUM 9.8 mg/dL (8.4-10.5); GFR AFRICAN-AMERICAN > 60; GFR NON-AFRICAN AMERICAN > 60
--- NOTE | 2018-05-04 08:37 | CT ---
PROCEDURE: CT HEAD WITHOUT CONTRAST. HISTORY: near-syncope COMPARISON: None available. TECHNIQUE: Axial computed tomography images were obtained through the head/brain without intravenous contrast. Radiation dose: Total exam DLP = 933.80 MGy-cm. This CT exam was performed using one or more of the following dose reduction techniques: Automated exposure control, adjustment of the mA and/or kV according to patient size, and/or use of iterative reconstruction technique. FINDINGS: HEMORRHAGE: No intracranial hemorrhage. BRAIN: No mass effect or edema. No atrophy or chronic microvascular ischemic changes. VENTRICLES: Unremarkable. No hydrocephalus. CALVARIUM: Unremarkable. PARANASAL SINUSES: Unremarkable as visualized. No significant inflammatory changes. MASTOID AIR CELLS: Unremarkable as visualized. No inflammatory changes. OTHER FINDINGS: None. IMPRESSION: Normal CT of the Head.
[2018-05-04] MEDS: Insulin Reg-LOW-Coverage SC SCH ×2 (08:46→11:39)
--- NOTE | 2018-05-04 08:59 | RAD ---
HISTORY: cp COMPARISON: 01/01/2016 FINDINGS: LUNGS: No active pulmonary disease. PLEURA: No significant pleural effusion identified, no pneumothorax apparent. CARDIOVASCULAR: Normal. OSSEOUS STRUCTURES: No significant abnormalities. VISUALIZED UPPER ABDOMEN: Normal. OTHER FINDINGS: None. IMPRESSION: No active disease.
--- NOTE | 2018-05-04 09:46 | CARD ---
APPROVED REPORT EKG Measurement Heart [id number] <Conclusion> Normal sinus rhythm Possible Left atrial enlargement.
--- NOTE | 2018-05-04 10:53 | CT ---
PROCEDURE: CT Abdomen and Pelvis with contrast HISTORY: abdominal pain COMPARISON: 03/02/2018 TECHNIQUE: Contrast dose: 100 cc of Omni 350 Radiation dose: Total exam DLP = 856 mGy-cm. This CT exam was performed using one or more of the following dose reduction techniques: Automated exposure control, adjustment of the mA and/or kV according to patient size, and/or use of iterative reconstruction technique. FINDINGS: LOWER THORAX: Unremarkable. LIVER: Unremarkable. No gross lesion or ductal dilatation. GALLBLADDER AND BILE DUCTS: Gallbladder removed PANCREAS: Unremarkable. No gross lesion or ductal dilatation. SPLEEN: Unremarkable. ADRENALS: Unremarkable. No mass. KIDNEYS AND URETERS: 5 mm nonobstructing stone in the right kidney. There is some renal scarring and focal atrophy in the right kidney. VASCULATURE: Unremarkable. No aortic aneurysm. BOWEL: Unremarkable. No obstruction. No gross mural thickening. APPENDIX: Normal appendix. PERITONEUM: Unremarkable. No free fluid. No free air. LYMPH NODES: Unremarkable. No enlarged lymph nodes. BLADDER: Unremarkable. REPRODUCTIVE: Unremarkable. BONES: No acute fracture. OTHER FINDINGS: The report concurs with the preliminary [facility] report IMPRESSION: No acute intra-abdominal findings
[2018-05-04] MEDS ORDERED: HYDROmorphone 0.5 mg/0.5 ml ISec IVP ONE (11:19)
[2018-05-04] MEDS ORDERED: DiphenhydrAMINE 50 mg/ml Inj IVP ONE (11:19)
[2018-05-04] MEDS ORDERED: oxyCODONE 15 mg Immediate Release Tab PO PRN (12:11)
--- NOTE | 2018-05-04 13:48 | MRI ---
PROCEDURE: MRI BRAIN WITHOUT CONTRAST HISTORY: syncope, headache COMPARISON: None. TECHNIQUE: Multiplanar, multisequence MR images of the brain were obtained without intravenous contrast enhancement. FINDINGS: HEMORRHAGE: None DWI: No evidence of an acute or early subacute infarction. BRAIN PARENCHYMA: No mass effect or edema. No atrophy or chronic microvascular ischemic changes. VENTRICLES: Unremarkable. No hydrocephalus. CRANIUM: Unremarkable. ORBITS: Grossly unremarkable. PARANASAL SINUSES/MASTOIDS: Clear VASCULAR SYSTEM: Skull base flow voids intact. OTHER FINDINGS: None. IMPRESSION: Unremarkable non contrast enhanced MRI of the brain.
--- NOTE | 2018-05-04 13:51 | MRI ---
PROCEDURE: Magnetic Resonance Angiography Brain HISTORY: syncopal episodes COMPARISON: None available. TECHNIQUE: 3D time of flight MR angiography of the intracranial arteries was performed. Rotating maximum intensity projection images were generated. FINDINGS: INTERNAL CAROTID ARTERIES: Unremarkable. The skull base, petrous, cavernous and supraclinoid segments are bilaterally widely patient. ANTERIOR CEREBRAL ARTERIES: Unremarkable. A1 and A2 segments are widely patent. Smaller distal branches unremarkable, as visualized. MIDDLE CEREBRAL ARTERIES: Unremarkable. M1 and M2 segments are widely patent. Perisylvian branches grossly symmetric. POSTERIOR CIRCULATION: Basilar Artery: Unremarkable. Distal Vertebral Arteries: Unremarkable. Posterior Cerebral Arteries: Unremarkable. Posterior Inferior Cerebellar Arteries: Unremarkable. ANEURYSM/ VASCULAR MALFORMATIONS: None. OTHER FINDINGS: None. IMPRESSION: Unremarkable MR angiography of the brain.
--- NOTE | 2018-05-04 14:42 | US ---
PROCEDURE: Bilateral carotid artery duplex ultrasound HISTORY: Carotid stenosis syncope PHYSICIAN(S): Mao Pena MD. TECHNIQUE: Duplex sonography and color-flow Doppler were used to evaluate the carotid bifurcations and limited segments of the vertebral arteries bilaterally. FINDINGS: There is mild to moderate smooth heterogeneous plaque noted at the carotid bifurcations bilaterally. The peak systolic velocity in the proximal right internal carotid artery is 76 cm/sec. This corresponds to a 20 to 39% proximal right ICA stenosis. Normal systolic velocities are noted in the proximal right external carotid artery. There is antegrade flow in the dominant right vertebral artery. The peak systolic velocity in the proximal left internal carotid artery is 81 cm/sec. This corresponds to a 20 to 39% proximal left ICA stenosis. Normal systolic velocities are noted in the proximal left external carotid artery. There is antegrade flow in the left vertebral artery. IMPRESSION: 1. Bilateral 20-39% proximal ICA stenoses. 2. Antegrade flow in both vertebral arteries.
[2018-05-04 14:52] VITALS: PULSE 85
--- NOTE | 2018-05-04 18:55 | CP.PCM.DIS ---
Provider - Provider Date of Admission: 05/04/18 05:02 Attending physician: Belle See MD Time Spent in preparation of Discharge (in minutes): 40 Diagnosis - Discharge Diagnosis (1) Drug-seeking behavior Status: Acute (2) Ear pain, left Status: Acute (3) Headache Status: Acute (4) Intractable abdominal pain Status: Acute (5) Malingering Status: Acute (6) Migraine Status: Acute Hospital Course - Lab Results Lab Results: Most Recent Lab Values WBC 14.7 10^3/ul (4.5-11.0) H 05/04/18 07:30 RBC 4.37 10^6/uL (3.5-6.1) 05/04/18 07:30 Hgb 13.9 g/dL (12.0-16.0) 05/04/18 07:30 Hct 38.6 % (36.0-48.0) 05/04/18 07:30 MCV 88.3 fl (80.0-105.0) 05/04/18 07:30 MCH 31.8 pg (25.0-35.0) 05/04/18 07:30 MCHC 36.0 g/dl (31.0-37.0) 05/04/18 07:30 RDW 13.6 % (11.5-14.5) 05/04/18 07:30 Plt Count 329 10^3/uL (120.0-450.0) 05/04/18 07:30 MPV 10.4 fl (7.0-11.0) 05/04/18 07:30 Gran % 57.9 % (50.0-68.0) 05/04/18 07:30 Lymph % (Auto) 35.9 % (22.0-35.0) H 05/04/18 07:30 Gila % (Auto) 5.5 % (1.0-6.0) 05/04/18 07:30 Eos % (Auto) 0.6 % (1.5-5.0) L 05/04/18 07:30 Baso % (Auto) 0.1 % (0.0-3.0) 05/04/18 07:30 Gran # 8.49 (1.4-6.5) H 05/04/18 07:30 Lymph # (Auto) 5.3 (1.2-3.4) H 05/04/18 07:30 Gila # (Auto) 0.8 (0.1-0.6) H 05/04/18 07:30 Eos # (Auto) 0.1 (0.0-0.7) 05/04/18 07:30 Baso # (Auto) 0.02 K/mm3 (0.0-2.0) 05/04/18 07:30 ESR 22 mm/hr (0.0-20.0) H 05/04/18 12:30 PT 11.3 SECONDS (9.4-12.5) 05/04/18 00:56 INR 0.99 (0.93-1.08) 05/04/18 00:56 APTT 24.7 Seconds (25.1-36.5) L 05/04/18 00:56 Sodium 144 mmol/L (132-148) 05/04/18 07:30 Potassium 3.6 mmol/L (3.6-5.0) 05/04/18 07:30 Chloride 104 mmol/L (98-107) 05/04/18 07:30 Carbon Dioxide 23 mmol/L (21-33) 05/04/18 07:30 Anion Gap 21 (10-20) H 05/04/18 07:30 BUN 16 mg/dL (7-21) 05/04/18 07:30 Creatinine 0.9 mg/dl (0.7-1.2) 05/04/18 07:30 Est GFR ( Amer) > 60 05/04/18 07:30 Est GFR (Non-Af Amer) > 60 05/04/18 07:30 POC Glucose (mg/dL) 102 mg/dL (65-110) 05/04/18 11:27 Random Glucose 99 mg/dL (70-110) 05/04/18 07:30 Calcium 9.8 mg/dL (8.4-10.5) 05/04/18 07:30 Magnesium 1.8 mg/dL (1.7-2.2) 05/04/18 00:56 Total Bilirubin 0.8 mg/dL (0.2-1.3) 05/04/18 07:30 AST 25 U/L (14-36) 05/04/18 07:30 ALT 25 U/L (7-56) 05/04/18 07:30 Alkaline Phosphatase 81 U/L (38-126) 05/04/18 07:30 Lactate Dehydrogenase 486 U/L (333-699) 05/04/18 00:56 Total Creatine Kinase 61 U/L (35-230) 05/04/18 00:56 Troponin I < 0.01 ng/mL 05/04/18 00:56 C-Reactive Protein < 5.00 mg/L (0.0-9.9) 05/04/18 12:30 Total Protein 8.2 g/dL (5.8-8.3) 05/04/18 07:30 Albumin 4.8 g/dL (3.0-4.8) 05/04/18 07:30 Globulin 3.4 gm/dL 05/04/18 07:30 Albumin/Globulin Ratio 1.4 (1.1-1.8) 05/04/18 07:30 Lipase 258 U/L (23-300) 05/04/18 00:56 Procalcitonin < 0.05 NG/ML (0.19-0.49) L 05/04/18 12:30 Urine Color Straw (YELLOW) 05/04/18 00:56 Urine Appearance Clear (CLEAR) 05/04/18 00:56 Urine pH 6.5 (4.7-8.0) 05/04/18 00:56 Ur Specific [place] <= 1.005 (1.005-1.035) 05/04/18 00:56 Urine Protein Negative mg/dL (<30 mg/dL) 05/04/18 00:56 Urine Glucose (UA) Negative mg/dL (NEGATIVE) 05/04/18 00:56 Urine Ketones Negative mg/dL (NEGATIVE) 05/04/18 00:56 Urine Blood Negative (NEGATIVE) 05/04/18 00:56 Urine Nitrate Negative (NEGATIVE) 05/04/18 00:56 Urine Bilirubin Negative (NEGATIVE) 05/04/18 00:56 Urine Urobilinogen 0.2 E.U./dL (<1 E.U./dL) 05/04/18 00:56 Ur Leukocyte Esterase Trace Viktor/uL (NEGATIVE) H 05/04/18 00:56 Urine RBC 0 - 2 /hpf (0-2) 05/04/18 00:56 Urine WBC 1 - 3 /hpf (0-6) 05/04/18 00:56 Ur Epithelial Cells 0 - 2 /hpf (0-5) 05/04/18 00:56 Urine Bacteria Rare (NEG) 05/04/18 00:56 - Hospital Course Hospital Course: Patient 42 year old female with past medical history of medical of gastric ulcers, nephrolithiasis, DM2, malignant otitis externa, depression, insomnia and recurrent ear infections who presented to [facility] complaining of left sided ear pain, mid-epigastric abdominal discomfort, Patient continued to request IV dilaudid and IV benadryl for intractable pain symptoms associated with her stomach and left ear. Patient refused to take oral pain medications in an attempt to wean patient off of IV narcotics. Patient requested to be sign out against medical advice. Patient was alert and oriented x 3, without suicidal ideations or homicidal ideations, patient was explained the benefits of staying for continued medical management and treatment and the risks for leaving without completion of appropriate medical work up. Patient IV line was removed by nursing staff. Patient was explained AMA paperwork and refused to sign paperwork before leaving the hospital. Antibiotics and ear drops were sent to patient's preferred pharamacy. Patient was instructed to return to nearest ED if she experienced any worsening ear pain, discharge, persistent fever, change in vision, hearing, mental status, weakness, numbness or focal deficit. Discharge Exam - Head Exam Head Exam: ATRAUMATIC, NORMAL INSPECTION, NORMOCEPHALIC Discharge Plan - Discharge Medications Prescriptions: Amoxicillin/Clavulanate [Augmentin 875 MG-125 MG] 1 tab PO BID #10 tab Ciprofloxacin/Dexamethasone [Ciprodex Otic] 1 drop EC BID #1 bottle - Follow Up Plan Condition: STABLE Disposition: AGAINST MEDICAL ADVICE
--- NOTE | 2018-05-05 05:43 | CON ---
DATE: CARDIOLOGY CONSULTATION REASON FOR CONSULTATION: Syncope. HISTORY OF PRESENT ILLNESS: The patient is a 42-year-old female, who has a history of depression, history of hypertension, history of gastric ulcer and kidney stones, status post lithotripsy, presented because of multiple fainting episodes in the past. The patient denies any chest pain at this time and is unaware of any history of heat attack in the past. The patient is admitted after passing out and experienced few episodes of vomiting. PAST MEDICAL HISTORY: Depression, kidney stones, otitis externa, gastric ulcers. No history of seizures. Patient has history of lithotripsy. ALLERGIES: PATIENT IS ALLERGIC TO TORADOL, TYLENOL, NAPROXEN, TRAMADOL, LOVENOX AND REGLAN. MEDICATIONS: Patient is on amlodipine 2.5 mg once a day, oxycodone 15 mg p.o. every 6 hours p.r.n. for pain, Protonix 40 mg intravenously once a day, and Valium 5 mg p.o. t.i.d. PHYSICAL EXAMINATION: GENERAL: Patient is a middle-aged female, who does not appear to be in any acute distress. VITAL SIGNS: Blood pressure 137/97, heart rate 105, temperature 98.9, respirations 17. HEENT: No pallor or icterus. NECK: No JVD, CHEST: Clear. HEART: S1 and S2 regular. ABDOMEN: Soft. EXTREMITIES: No edema. LABORATORY DATA: Hemoglobin and hematocrit today is 13.9 and 38.6, white count 14.7, platelet count 329,000. PT 11.3, PTT 24.7. Today's SMA-7, sodium 144, potassium 3.6, chloride 104, CO2 of 23, glucose 99, BUN 16, creatinine 0.9. Two sets of troponins are negative. DIAGNOSTIC DATA: EKG revealed sinus rhythm, possible left atrial enlargement. Brain MRI unremarkable. Head MRA was unremarkable. Caroid artery ultrasound, no significant disease, with antegrade flow in vertebral arteries. ASSESSMENT: 1. History of recent syncopal episode, rule out seizure activity. 2. Hypertension. 3. Depression and anxiety disorder. 4. Hypokalemia on admission, which was corrected today. 5. Nephrolithiasis, status post lithotripsy. RECOMMENDATIONS: I did review the echocardiographic study, which revealed normal left ventricular systolic function. Continue current Norvasc 2.5 mg once a day. Consider Neurology evaluation as well as an EEG. Hollis Bauer MD
--- NOTE | 2018-05-05 09:25 | CARD ---
APPROVED REPORT EXAM: Two-dimensional and M-mode echocardiogram with Doppler and color Doppler. INDICATION 2D DIMENSIONS Left Atrium (2D)2.6 (1.6-4.0cm)IVSd1.2 (0.7-1.1cm) LVDd4.3 (3.9-5.9cm)PWd1.2 (0.7-1.1cm) LVDs3.0 (2.5-4.0cm)FS (%) 31.6 % LVEF (%)59.8 (>50%) M-Mode DIMENSIONS Aortic Root3.20 (2.2-3.7cm)Aortic Cusp Exc.2.00 (1.5-2.0cm) Aortic Valve AoV Peak Buvylfum255.0cm/Seema Peak GR.10mmHg Mitral Valve MV E Mhleygap74.8cm/sMV A Qefbfkok61.1cm/sE/A ratio0.8 TDI Lateral E' Peak V9.75cm/sMedial E' Peak V5.36cm/sE/Lateral E'5.7 E/Medial E'10.4 Tricuspid Valve TR Peak Qaocldey112hc/sRAP [id number] Peak Gr.9mmHg [id number] LEFT VENTRICLE The left ventricle is normal size. There is borderline to mild concentric left ventricular hypertrophy. The left ventricular function is normal.EF-55-60% There is normal LV segmental wall motion. Transmitral Doppler flow pattern is Grade III-reversible restrictive diastolic dysfunction. No left ventricle thrombus noted on this study. There is no ventricular septal defect visualized. There is no left ventricular aneurysm. There is no mass noted in the left ventricle. RIGHT VENTRICLE The right ventricle is normal size. There is normal right ventricular wall thickness. The right ventricular systolic function is normal. ATRIA The left atrium size is normal. The right atrium size is normal. The interatrial septum is intact with no evidence for an atrial septal defect. AORTIC VALVE The aortic valve is thickened but opens well. No aortic regurgitation is present. There is no aortic valvular stenosis. There is no aortic valvular vegetation. MITRAL VALVE The mitral valve is thickened but opens well. Mitral regurgitation is trace. There is no mitral valve stenosis. There is no evidence of mitral valve prolapse. TRICUSPID VALVE The tricuspid valve leaflets are thickened , but open well. There is trace tricuspid regurgitation.RVSP-19 mmof Hg. There is no tricuspid valve stenosis. There is no tricuspid valve prolapse or vegetation. PULMONIC VALVE The pulmonary valve is normal in structure. There is no pulmonic valvular regurgitation. There is no pulmonic valvular stenosis. GREAT VESSELS The aortic root is normal in size. The ascending aorta is normal in size. The pulmonary artery is normal. The IVC is normal in size and collapses >50% with inspiration. PERICARDIAL EFFUSION There is no pleural effusion. There is no pericardial effusion. <Conclusion> Normal chamber Size. EF-55-60% Trace MR/TR RVSP-19 mmof Hg. No vegetation or thrombus noted.
== END 2018-05-04 16:33 | disposition left against medical advice (07) ==
LOC: ED 23:55 → ERH 05-04 05:02 → 3RNO 05-04 06:17
PROVIDERS: ADMIT Internal Medicine; ATTEND Internal Medicine
DX: Z76.5 Malingerer [conscious simulation] (principal); H60.20 Malignant otitis externa, unspecified ear; H60.92 Unspecified otitis externa, left ear; I10 Essential (primary) hypertension; K21.9 Gastro-esophageal reflux disease without esophagitis; K29.70 Gastritis, unspecified, without bleeding; M81.0 Age-related osteoporosis without current pathological fracture; E11.9 Type 2 diabetes mellitus without complications; F31.9 Bipolar disorder, unspecified; F41.0 Panic disorder [episodic paroxysmal anxiety]; G43.909 Migraine, unspecified, not intractable, without status migrainosus; G47.00 Insomnia, unspecified; G47.30 Sleep apnea, unspecified; G89.29 Other chronic pain; E87.6 Hypokalemia; N20.0 Calculus of kidney; R29.6 Repeated falls; Z79.84 Long term (current) use of oral hypoglycemic drugs; Z87.01 Personal history of pneumonia (recurrent); Z87.11 Personal history of peptic ulcer disease; Z87.440 Personal history of urinary (tract) infections; Z87.442 Personal history of urinary calculi; Z90.49 Acquired absence of other specified parts of digestive tract; Z90.710 Acquired absence of both cervix and uterus; Z90.722 Acquired absence of ovaries, bilateral; Z88.6 Allergy status to analgesic agent; Z88.5 Allergy status to narcotic agent
CPT/HCPCS: 70450; 70544; 70551; 71045; 74177; 80053; 81001; 82550; 82948; 83615; 83690; 83735; 84145; 84484; 85025; 85610; 85651; 85730; 86140; 87086; 93005; 93306; 93880; 96374; 96375; 96376; 99285; C9113; G0378; J1170; J1200; J2270; J2405; Q9967

== ENCOUNTER 2018-08-09 13:10 | Emergency (ER) | payer MEDICARE ==
[2018-08-09 15:14] VITALS: TEMP 98.2; O2SAT 98
[2018-08-09 15:34] VITALS: BMI 24.9
[2018-08-09] MEDS ORDERED: Sodium Chloride 0.9% 1,000 ML IV STA (15:34)
[2018-08-09 16:15] LABS: URINE BILIRUBIN NEGATIVE (NEGATIVE); URINE BLOOD TRACE-LYSED (NEGATIVE); URINE GLUCOSE (UA) NEGATIVE (NEGATIVE); URINE LEUKOCYTE ESTERASE TRACE Leu/uL (NEGATIVE); URINE PROTEIN TRACE mg/dL (<30 mg/dL); URINE UROBILINOGEN 0.2 E.U./dL (<1 E.U./dL)
[2018-08-09 16:16] LABS: URINE APPEARANCE CLEAR (CLEAR); URINE COLOR YELLOW (YELLOW)
[2018-08-09 16:20] LABS: URINE BACTERIA FEW (NEG); URINE CALCIUM OXALATE CRYSTALS TRACE /hpf; URINE RBC 0 - 2 /hpf (0-2)
--- NOTE | 2018-08-09 17:01 | CT ---
Date of service: 08/09/2018 PROCEDURE: CT abdomen pelvis. HISTORY: Bilateral flank pain COMPARISON: Comparison made with prior CT scan of the abdomen and pelvis dated 05/04/2018. TECHNIQUE: Contiguous axial images of the abdomen and pelvis performed without oral or intravenous contrast material. Additional 2D sagittal and coronal reformats generated. Radiation dose: Total exam DLP = 453.63 mGy-cm. This CT exam was performed using one or more of the following dose reduction techniques: Automated exposure control, adjustment of the mA and/or kV according to patient size, and/or use of iterative reconstruction. Technique. FINDINGS: LOWER THORAX: Lung bases clear. No infiltrate effusion or basilar pneumothorax.. Heart size within range of normal. No significant pericardial effusion. Bilateral breast implants are present. LIVER: Liver exhibits normal size measuring just approximately 15.5 cm in CC dimension. No obvious hepatic mass collection or calcification. GALLBLADDER AND BILE DUCTS: Cholecystectomy. PANCREAS: The pancreas appears unremarkable without masses collections or calcifications. SPLEEN: Spleen exhibits normal size and attenuation pattern without mass collection or calcification. ADRENALS: There are no adrenal lesions. KIDNEYS AND URETERS: Unremarkable. No stone or hydronephrosis. BLADDER: Urinary bladder is physiologically distended. No evidence of intraluminal gallbladder calculi. Again noted is nonobstructing calcification upper mid pole collecting system right kidney that measures approximately 6.8 mm slightly increased from prior study which was measured at 5.8 mm. Few punctate calcifications also present in the mid to lower pole collecting system as well. Suspect mild cortical scarring changes posterior midpole right kidney unchanged from prior exam. There are also several punctate calcifications upper/midpole left kidney. No evidence of right or left-sided hydronephrosis. No renal masses or collections. REPRODUCTIVE: Unremarkable. APPENDIX: Normal appendix. BOWEL: Evaluation of the bowel is limited due to the lack of circulating intravenous contrast material. Stomach is incompletely distended. Visualized loops of small bowel exhibit normal caliber without evidence of acute mechanical small bowel obstruction. Stool and air seen throughout the large bowel and a moderate amount of stool in the sigmoid and rectum suggesting mild fecal retention/constipation. PERITONEUM: Unremarkable. No fluid collection. No free air. Tiny fat containing umbilical hernia LYMPH NODES: Unremarkable. No enlarged lymph nodes. VASCULATURE: No evidence of abdominal aortic or iliac artery aneurysm. Aneurysm. BONES: Mild multilevel degenerative spondylosis of the lower thoracic and lumbar spine. Also again seen is posterior fixation hardware at the L 4 and L5 segments with fusion changes of the L4-L5 disc space cell. OTHER FINDINGS: None. IMPRESSION: Multiple bilateral non obstructing renal calculi.. Largest calculus within upper/midpole right kidney measures approximately 6.8 mm increased in size from prior exam. Minor localized posterior cortical scarring midpole right kidney. Cholecystectomy.
[2018-08-09 17:13] LABS: BASO # 0.02 K/mm3 (0.0-2.0); BASO % 0.2 % (0.0-3.0); EOS % 0.4 % (1.5-5.0); GRAN # 6.34 (1.4-6.5); GRAN % 62.8 % (50.0-68.0); LYMPH # 3.2 (1.2-3.4); LYMPH % 31.4 % (22.0-35.0); MEAN CELL VOLUME 89.2 fl (80.0-105.0); MEAN CORPUSCULAR HEMOGLOBIN 31.4 pg (25.0-35.0); MEAN CORPUSCULAR HGB CONC 35.2 g/dl (31.0-37.0); MEAN PLATELET VOLUME 10.8 fl (7.0-11.0); MONO # 0.5 (0.1-0.6); MONO % 5.2 % (1.0-6.0); RBC 4.46 10^6/uL (3.5-6.1); RED CELL DISTRIBUTION WIDTH 13.6 % (11.5-14.5); WHITE BLOOD COUNT 10.1 10^3/ul (4.5-11.0)
[2018-08-09 17:21] LABS: INR 1.07; PARTIAL THROMBOPLASTIN TIME 26.6 Seconds (25.1-36.5); PROTHROMBIN TIME 12.2 SECONDS (9.4-12.5)
[2018-08-09] MEDS ORDERED: Morphine 4 mg/ml ISec IVP STA (17:27)
[2018-08-09 17:32] LABS: ALB/GLOB RATIO 1.5 (1.1-1.8); ALBUMIN 5.1 g/dL (3.0-4.8); ALT/SGPT 17 U/L (7-56); AST/SGOT 22 U/L (14-36); BLOOD UREA NITROGEN 15 mg/dL (7-21); CALCIUM 10.1 mg/dL (8.4-10.5); GFR NON-AFRICAN AMERICAN > 60; LIPASE 236 U/L (23-300)
[2018-08-09] MEDS ORDERED: Morphine 2 mg/ml ISec IVP STA (18:37)
--- NOTE | 2018-08-09 18:45 | ED PDOC ---
Arrival/HPI - General Chief Complaint: Abdominal Pain Time Seen by Provider: 08/09/18 15:10 Historian: Patient - History of Present Illness Narrative History of Present Illness (Text): 08/09/18 18:38 42yo female with pmhx of bipolar, diabetes, hypertension, renal colic who present with complaint of abdominal pain, nausea, vomiting, diarrhea and dysuria. Thinks she have C. Diff from taking antibiotics a week ago. states she was given the antibiotics for cold symptoms, and she gets C. diff every time she takes antibiotics. she also complain of odorous urine. She denies fever, chills, sick contact, travel, chest pain, SOB, diaphoresis, hematuria, urinary frequency, any other complaint. Past Medical History - Provider Review Nursing Documentation Reviewed: Yes - Infectious Disease Hx of Infectious Diseases: None - Tetanus Immunization Tetanus Immunization: Unknown - Cardiac Hx Cardiac Disorders: Yes Hx Angina: Yes Hx Heart Murmur: Yes Hx Hypertension: Yes - Pulmonary Hx Respiratory Disorders: Yes Hx Bronchitis: Yes Hx Pneumonia: Yes Hx Sleep Apnea: Yes - Neurological Hx Neurological Disorder: Yes Hx Migraine: Yes Other/Comment: insomnia - HEENT Hx HEENT Disorder: Yes Other/Comment: blurred vision at times tearing with vertigo or migranes, laser sx for vision - Renal Hx Renal Disorder: Yes Hx Kidney Stones: Yes - Endocrine/Metabolic Hx Endocrine Disorders: Yes (thyroid nodule) Hx Diabetes Mellitus Type 2: Yes - Hematological/Oncological Hx Blood Disorders: Yes Hx Anemia: Yes - Musculoskeletal/Rheumatological Hx Falls: No - Gastrointestinal Hx Gastrointestinal Disorders: Yes Hx Diverticulitis: Yes Hx Gall Bladder Disease: Yes Hx Gastroesophageal Reflux: Yes Hx Pancreatitis: Yes HX Swallowing Problems: Yes Other/Comment: gastritis - Genitourinary/Gynecological Hx Genitourinary Disorders: Yes (bilat oophorectomy due to cysts) Hx Hematuria: Yes Hx Sexually Transmitted Diseases: Yes (chlaymidia) Hx Urinary Tract Infection: Yes - Psychiatric Hx Psychophysiologic Disorder: Yes Hx Anxiety: Yes Hx Bipolar Disorder: Yes Hx Depression: Yes Hx Panic Disorder: Yes Hx Substance Use: Yes - Surgical History Hx Cholecystectomy: Yes Hx Hysterectomy: Yes (2010) Hx Musculoskeletal Surgery: Yes Hx Orthopedic Surgery: Yes - Anesthesia Hx Anesthesia: Yes Hx Anesthesia Reactions: Yes (did not work during egd ) Hx Malignant Hyperthermia: No - Suicidal Assessment Feels Threatened In Home Enviroment: No Family/Social History - Physician Review Nursing Documentation Reviewed: Yes Family/Social History: Unknown Family HX Smoking Status: Never Smoked Hx Alcohol Use: No Hx Substance Use: Yes Hx Substance Use Treatment: No Allergies/Home Meds Allergies/Adverse Reactions: Allergies acetaminophen [From Fioricet] Allergy (Verified 12/31/17 08:35) RASH butalbital [From Fioricet] Allergy (Verified 12/31/17 08:35) RASH caffeine [From Fioricet] Allergy (Verified 12/31/17 08:35) RASH enoxaparin sodium [From Lovenox] Allergy (Verified 12/31/17 08:35) RASH ketorolac tromethamine [From Toradol] Allergy (Verified 12/31/17 08:35) RASH meperidine HCl [From Demerol] Allergy (Verified 12/31/17 08:35) RASH metoclopramide HCl [From Reglan] Allergy (Verified 12/31/17 08:35) RASH prednisone Allergy (Verified 12/31/17 08:35) RASH sumatriptan Allergy (Verified 12/31/17 08:35) RASH tramadol Allergy (Verified 05/04/18 00:03) RASH technetium-99m Adverse Reaction (Verified 12/31/17 08:35) RASH Home Medications: Home Meds Medication Instructions Recorded Confirmed RX: Zolpidem Tartrate [Ambien] 10 tab PO HS 09/22/16 05/04/18 RX: metFORMIN [glucOPHAGE] 500 mg PO DAILY 01/09/17 05/04/18 RX: amLODIPine [Norvasc] 2.5 mg PO DAILY 01/05/18 05/04/18 Diazepam [Valium] 5 mg PO TID 05/04/18 05/04/18 Review of Systems - Physician Review All systems were reviewed & negative as marked: Yes - Review of Systems Constitutional: Normal Eyes: Normal ENT: Normal Respiratory: Normal Cardiovascular: Normal Gastrointestinal: Normal Genitourinary Female: Normal Musculoskeletal: Normal Skin: Normal Neurological: Normal Endocrine: Normal Hemo/Lymphatic: Normal Psychiatric: Normal Physical Exam Vital Signs Reviewed: Yes Vital Signs Temp Pulse Resp BP Pulse Ox 08/09/18 19:43 66 16 105/55 L 98 08/09/18 19:29 78 18 115/74 98 08/09/18 16:33 85 18 113/70 98 08/09/18 15:13 98.2 F 94 H 18 117/59 L 98 Temperature: Afebrile Blood Pressure: Normal Pulse: Regular Respiratory Rate: Normal Appearance: Positive for: Well-Appearing, Non-Toxic, Comfortable Pain Distress: None Mental Status: Positive for: Alert and Oriented X 3 - Systems Exam Head: Present: Atraumatic, Normocephalic Pupils: Present: PERRL Extroacular Muscles: Present: EOMI Conjunctiva: Present: Normal Mouth: Present: Moist Mucous Membranes Neck: Present: Normal Range of Motion Respiratory/Chest: Present: Clear to Auscultation, Good Air Exchange. No: Respiratory Distress, Accessory Muscle Use Cardiovascular: Present: Regular Rate and Rhythm, Normal S1, S2. No: Murmurs Abdomen: Present: Tenderness (Mild diffuse tenderness), Normal Bowel Sounds, Other (soft). No: Distention, Peritoneal Signs, Rebound, Guarding, McBurney's Point Tender, Rovsing's Sign Present Back: Present: Normal Inspection Upper Extremity: Present: Normal Inspection. No: Cyanosis, Edema Lower Extremity: Present: Normal Inspection. No: Edema Neurological: Present: GCS=15, CN II-XII Intact, Speech Normal Skin: Present: Warm, Dry, Normal Color. No: Rashes Psychiatric: Present: Alert, Oriented x 3, Normal Insight, Normal Concentration Medical Decision Making ED Course and Treatment: 08/10/18 17:43 Pt presented for stated history. She was hemodynamically stable. Lab was ordered and unremarkable Abdominal pelvic CT IMPRESSION: Multiple bilateral non obstructing renal calculi.. Largest calculus within upper/midpole right kidney measures approximately 6.8 mm increased in size from prior exam. Minor localized posterior cortical scarring midpole right kidney. Cholecystectomy. Result was DW the pt. She have chronic pain and notes that she ran out of her ocycodone and her new pain management Doctor refused to give her any oral pain medication so she came to ED. She exhibited pain medication seeking behavior. She was advised to f/u with her PMD for narcotics. She have a urologist and was advoised to f/u with her Urologist. Advised TRT ED for any worsening symptoms. - Lab Interpretations Lab Results: 08/09/18 17:08 08/09/18 17:08 Lab Results 08/09/18 17:08: Sodium 144, Potassium 3.8, Chloride 104, Carbon Dioxide 27, Anion Gap 16, BUN 15, Creatinine 1.0, Est GFR ( Amer) > 60, Est GFR (Non- Af Amer) > 60, Random Glucose 82, Calcium 10.1, Magnesium 1.9, Total Bilirubin 0.7, AST 22, ALT 17, Alkaline Phosphatase 89, Total Protein 8.6 H, Albumin 5.1 H , Globulin 3.5, Albumin/Globulin Ratio 1.5, Lipase 236 08/09/18 17:08: PT 12.2, INR 1.07, APTT 26.6 08/09/18 17:08: WBC 10.1 D, RBC 4.46, Hgb 14.0, Hct 39.8, MCV 89.2, MCH 31.4, MCHC 35.2, RDW 13.6, Plt Count 216, MPV 10.8, Gran % 62.8, Lymph % (Auto) 31.4, [place] % (Auto) 5.2, Eos % (Auto) 0.4 L, Baso % (Auto) 0.2, Gran # 6.34, Lymph # (Auto) 3.2, [place] # (Auto) 0.5, Eos # (Auto) 0.0, Baso # (Auto) 0.02 08/09/18 16:10: Urine Color Yellow, Urine Appearance Clear, Urine pH 6.0, Ur Specific [place] >= 1.030, Urine Protein Trace H, Urine Glucose (UA) Negative, Urine Ketones Negative, Urine Blood Trace-lysed H, Urine Nitrate Negative, Urine Bilirubin Negative, Urine Urobilinogen 0.2, Ur Leukocyte Esterase Trace H, Urine RBC 0 - 2, Urine WBC 1 - 3, Ur Epithelial Cells 3 - 4, Calcium Oxalate Cr ystal Trace, Urine Bacteria Few - RAD Interpretation Radiology Orders: 08/09/18 15:34 ABD & PELVIS W/O PO OR IV CONT [CT] Stat - Medication Orders Current Medication Orders: Discontinued Medications Famotidine (Pepcid) 20 mg IVP STAT STA Stop: 08/09/18 15:35 Last Admin: 08/09/18 16:47 Dose: 20 mg IVP Administration Document 08/09/18 16:47 LINH (Rec: 08/09/18 16:47 LINH [id number]) Charges for Administration # of IVP Administrations 1 Sodium Chloride (Sodium Chloride 0.9%) 1,000 mls @ 1,000 mls/hr IV .Q1H STA Stop: 08/09/18 16:33 Last Admin: 08/09/18 16:46 Dose: 1,000 mls/hr eMAR Start Stop Document 08/09/18 16:46 LINH (Rec: 08/09/18 16:47 LINH [id number]) Intravenous Solution Start Date 08/09/18 Start Time 16:47 End Date 08/09/18 End time 17:47 Total Infusion Time 60 Morphine Sulfate (Morphine) 4 mg IVP STAT STA Stop: 08/09/18 17:28 Last Admin: 08/09/18 17:38 Dose: 4 mg MAR Pain Assessment Document 08/09/18 17:38 LINH (Rec: 08/09/18 17:38 LINH [id number]) Pain Reassessment Is this a pain reassessment? Yes Presence of Pain Presence of Pain Yes Pain Scale Used Protocol: [facility] Pain Scale Used Numeric Location Pain Location Body Site Abdomen Description Description Constant Intensity of Pain at present 10 IVP Administration Document 08/09/18 17:38 LINH (Rec: 08/09/18 17:38 LINH [id number]) Charges for Administration # of IVP Administrations 1 Morphine Sulfate (Morphine) 2 mg IVP STAT STA Stop: 08/09/18 18:38 Last Admin: 08/09/18 19:09 Dose: 2 mg MAR Pain Assessment Document 08/09/18 19:09 LINH (Rec: 08/09/18 19:10 LINH [id number]) Pain Reassessment Is this a pain reassessment? Yes Presence of Pain Presence of Pain Yes Pain Scale Used Protocol: [facility] Pain Scale Used Numeric Location Pain Location Body Site Abdomen Description Description Constant Intensity of Pain at present 5 IVP Administration Document 08/09/18 19:09 LINH (Rec: 08/09/18 19:10 LINH [id number]) Charges for Administration # of IVP Administrations 1 Ondansetron HCl (Zofran Inj) 4 mg IVP STAT STA Stop: 08/09/18 15:35 Last Admin: 08/09/18 16:47 Dose: 4 mg IVP Administration Document 08/09/18 16:47 LINH (Rec: 08/09/18 16:47 LINH [id number]) Charges for Administration # of IVP Administrations 1 Ondansetron HCl (Zofran Inj) 4 mg IVP STAT STA Stop: 08/09/18 18:38 Last Admin: 08/09/18 19:10 Dose: 4 mg IVP Administration Document 08/09/18 19:10 LINH (Rec: 08/09/18 19:10 LINH [id number]) Charges for Administration # of IVP Administrations 1 Disposition/Present on Arrival - Present on Arrival Any Indicators Present on Arrival: No History of DVT/PE: No History of Uncontrolled Diabetes: No Urinary Catheter: No History of Decub. Ulcer: No History Surgical Site Infection Following: None - Disposition Have Diagnosis and Disposition been Completed?: Yes Diagnosis: Kidney stone, Urinary tract infection, Chronic pain, Drug-seeking behavior Disposition: HOME/ ROUTINE Disposition Time: 18:45 Patient Plan: Discharge Condition: STABLE Discharge Instructions (ExitCare): Urinary Tract Infections in Adults, Kidney Stones in Adults Additional Instructions: Follow up with your Doctor/Urologist/Pain management Drink plenty of fluid Return to ED for any new or worsening symptoms Prescriptions: Ondansetron ODT [Zofran ODT] 4 mg PO Q6 #7 odt Referrals: Margaret Banuelos MD [Staff Provider] - Follow up with primary Jan Anthony MD [Staff Provider] - Follow up with primary Jan Enamorado MD [Family Provider] - Follow up with primary Forms: [employer] (Spanish)
[2018-08-09 19:44] VITALS: BP 105/55; PULSE 66; RESP 16
== END 2018-08-09 19:43 | disposition home or self-care (01) ==
LOC: ED 13:10
DX: N20.0 Calculus of kidney (principal); N39.0 Urinary tract infection, site not specified; G89.29 Other chronic pain; Z76.5 Malingerer [conscious simulation]; I10 Essential (primary) hypertension; E11.9 Type 2 diabetes mellitus without complications
CPT/HCPCS: 74176; 80053; 81001; 83690; 83735; 85025; 85610; 85730; 87086; 96361; 96374; 96375; 96376; 99283; J2270; J2405; J7030

== ENCOUNTER 2018-09-20 07:06 | Emergency (ER) | payer MEDICARE ==
[2018-09-20 07:07] VITALS: BMI 24.9
[2018-09-20] MEDS ORDERED: Sodium Chloride 0.9% 1,000 ML IV STA (07:56)
[2018-09-20] MEDS ORDERED: Morphine 5 MG/ML SYRINGE IVP STA (07:57)
--- NOTE | 2018-09-20 08:25 | ED PDOC ---
Arrival/HPI - General Chief Complaint: Abdominal Pain Time Seen by Provider: 09/20/18 07:41 Historian: Patient - History of Present Illness Narrative History of Present Illness (Text): 09/20/18 07:55 42 year old female, with past medical history of gastric ulcers, kidney stones, diabetes, malignant otitis externa, depression, and insomnia, presents to the Emergency department complaining of nausea, vomiting, diarrhea and abdominal pain for 2 weeks. Patient informs 4 episodes of non-bloody episodes of vomiting since last night. Patient additionally reports associated urinary urgency but poor urinary output. Patient states visiting Dr. Enamorado with the presented symptoms and was prescribed antibiotics and imodium. However, patient states unimproved symptoms and believes she may have C. diff, prompting her to present to the ED for medical evaluation. Patient denies any fevers, chills, headache, dizziness, chest pain, shortness of breath, cough, back pain, neck pain, or any other complaints. PMD: Dr. Enamorado Time/Duration: > week Symptom Onset: Gradual Symptom Course: Unchanged Quality: Aching Activities at Onset: Light Context: Home Past Medical History - Provider Review Nursing Documentation Reviewed: Yes - Infectious Disease Hx of Infectious Diseases: C.diff - Tetanus Immunization Tetanus Immunization: Unknown - Reproductive Menopause: Yes - Cardiac Hx Cardiac Disorders: Yes Hx Angina: Yes Hx Heart Murmur: Yes Hx Hypertension: Yes - Pulmonary Hx Respiratory Disorders: Yes Hx Bronchitis: Yes Hx Pneumonia: Yes Hx Sleep Apnea: Yes - Neurological Hx Neurological Disorder: Yes Hx Migraine: Yes Other/Comment: insomnia - HEENT Hx HEENT Disorder: Yes Other/Comment: blurred vision at times tearing with vertigo or migranes, laser sx for vision - Renal Hx Renal Disorder: Yes Hx Kidney Stones: Yes - Endocrine/Metabolic Hx Endocrine Disorders: Yes (thyroid nodule) Hx Diabetes Mellitus Type 2: Yes - Hematological/Oncological Hx Blood Disorders: Yes Hx Anemia: Yes - Musculoskeletal/Rheumatological Hx Falls: No - Gastrointestinal Hx Gastrointestinal Disorders: Yes Hx Diverticulitis: Yes Hx Gall Bladder Disease: Yes Hx Gastroesophageal Reflux: Yes Hx Pancreatitis: Yes HX Swallowing Problems: Yes Other/Comment: gastritis - Genitourinary/Gynecological Hx Genitourinary Disorders: Yes (bilat oophorectomy due to cysts) Hx Hematuria: Yes Hx Sexually Transmitted Diseases: Yes (chlaymidia) Hx Urinary Tract Infection: Yes - Psychiatric Hx Psychophysiologic Disorder: Yes Hx Anxiety: Yes Hx Bipolar Disorder: Yes Hx Depression: Yes Hx Panic Disorder: Yes Hx Substance Use: Yes - Surgical History Hx Cholecystectomy: Yes Hx Hysterectomy: Yes (2010) Hx Musculoskeletal Surgery: Yes Hx Orthopedic Surgery: Yes - Anesthesia Hx Anesthesia: Yes Hx Anesthesia Reactions: Yes (did not work during egd ) Hx Malignant Hyperthermia: No - Suicidal Assessment Feels Threatened In Home Enviroment: No Family/Social History - Physician Review Nursing Documentation Reviewed: Yes Family/Social History: Unknown Family HX Smoking Status: Never Smoked Hx Alcohol Use: No Hx Substance Use: Yes Hx Substance Use Treatment: No Allergies/Home Meds Allergies/Adverse Reactions: Allergies acetaminophen [From Fioricet] Allergy (Verified 09/20/18 07:34) RASH butalbital [From Fioricet] Allergy (Verified 09/20/18 07:34) RASH caffeine [From Fioricet] Allergy (Verified 09/20/18 07:34) RASH enoxaparin sodium [From Lovenox] Allergy (Verified 09/20/18 07:34) RASH ketorolac tromethamine [From Toradol] Allergy (Verified 09/20/18 07:34) RASH meperidine HCl [From Demerol] Allergy (Verified 09/20/18 07:34) RASH metoclopramide HCl [From Reglan] Allergy (Verified 09/20/18 07:34) RASH prednisone Allergy (Verified 09/20/18 07:34) RASH sumatriptan Allergy (Verified 09/20/18 07:34) RASH tramadol Allergy (Verified 09/20/18 07:34) RASH technetium-99m Adverse Reaction (Verified 12/31/17 08:35) RASH Home Medications: Home Meds Medication Instructions Recorded Confirmed Zolpidem Tartrate [Ambien] 10 tab PO HS 09/22/16 05/04/18 metFORMIN [glucOPHAGE] 500 mg PO DAILY 01/09/17 05/04/18 amLODIPine [Norvasc] 2.5 mg PO DAILY 01/05/18 05/04/18 Diazepam [Valium] 5 mg PO TID 05/04/18 05/04/18 Review of Systems - Physician Review All systems were reviewed & negative as marked: Yes - Review of Systems Constitutional: absent: Fevers Cardiovascular: absent: Chest Pain Gastrointestinal: Abdominal Pain, Diarrhea, Nausea, Vomiting Physical Exam - Physical Exam Narrative Physical Exam (Text): 09/20/18 07:58 Constitutional: No acute distress. Head: Normocephalic. Atraumatic. Eyes: PERRL. ENT: Moist mucous membranes. Neck: Supple. Cardiovascular: Regular rate. Chest: No tenderness. Respiratory: Clear to auscultation bilaterally. GI: Right Lower quadrant tenderness with guarding. Back: No CVA tenderness. Musculoskeletal: No tenderness or swelling of extremities. Skin: No rash. Neurologic: Alert, no focal deficit. Vital Signs Reviewed: Yes Vital Signs Temp Pulse Resp BP Pulse Ox 09/20/18 07:35 97.8 F 76 16 112/78 99 09/20/18 07:28 97.9 F 77 18 101/52 L 99 Temperature: Afebrile Blood Pressure: Normal Pulse: Regular Respiratory Rate: Normal Appearance: Positive for: Well-Appearing, Non-Toxic, Comfortable Pain Distress: None Mental Status: Positive for: Alert and Oriented X 3 Medical Decision Making ED Course and Treatment: 09/20/18 07:58 Impression: 42 year old female presents to the Emergency department complaining of nausea, vomiting, diarrhea and abdominal pain. Plan: -- CT of Abdomen/Pelvis -- Labs -- Morphine -- IV Fluids -- Zofran -- Urine Culture -- Urinalysis -- Reassess and disposition Prior Visits: Notes and results from previous visits were reviewed. Progress Notes: 09/20/18 14:42 PROCEDURE: CENTRAL LINE PLACEMENT Performed by the emergency provider, Time: 14:20 Consent: Discussion of the risks, benefits, and alternatives to the procedure, along with informed consent. Timeout: A timeout to verify the correct patient, procedure, and site was performed. Indication: Intravenous access Anesthesia: Local anesthesia: Skin Preparation: Hand hygiene performed prior to central venous catheter insertion. Sterile field, sterile drape, sterile technique, and cap and gown were used. The area was cleansed with 2% Chlorhexidine. Patient position: Supine Location: Right IJ Ultrasound guidance: YES Technique: The landmarks for the line placement were identified. The vessel was cannulated and a non-tunneled 7.0 Fr triple lumen was placed using the Seldinger technique. Successful placement: YES Assessment: Good patency and blood return through all three lumens. The ports were appropriately flushed. See post procedure X-Ray interpretation. Post-procedure: Patient tolerated the procedure well with no immediate com plications. FINDINGS: LOWER THORAX: No infiltrate/effusion. Bilateral breast augmentation prostheses. LIVER: Unremarkable. No gross lesion or ductal dilatation. GALLBLADDER AND BILE DUCTS: Status post cholecystectomy PANCREAS: Unremarkable. No gross lesion or ductal dilatation. SPLEEN: Unremarkable. ADRENALS: Unremarkable. No mass. KIDNEYS AND URETERS: 10 mm nonobstructing right upper pole renal calculus. Evaluation for smaller calculi bilaterally is limited by the presence of intravenous contrast. There is a 2 mm nonobstructing left upper pole renal calculus. Question is raised of possible additional small calculi in the lower pole right kidney. No renal mass. No hydronephrosis. No ureteral calculus. VASCULATURE: Unremarkable. No aortic aneurysm. No aortic atherosclerotic calcification or mural plaque present. BOWEL: Unremarkable. No obstruction. No gross mural thickening. APPENDIX: Normal appendix. PERITONEUM: Unremarkable. No free fluid. No free air. LYMPH NODES: Unremarkable. No enlarged lymph nodes. BLADDER: Unremarkable. REPRODUCTIVE: Unremarkable uterus BONES: No acute fracture. Posterior fusion at L4-5. OTHER FINDINGS: None. IMPRESSION: 10 mm right renal calculus, nonobstructing. Tiny nonobstructing left upper pole renal calculus and possible additional right lower pole calculi. No acute abnormality identified. 09/20/18 17:54 Result was discussed with patient. While in ED, patient is exhibiting pain medication seeking behavior. She was advised to f/u with her PMD. Will start antibiotics for possible UTI, culture sent. Informed patient that CT shows no new findings compared to last visit. She was informed that if there are any worsening or concerning symptoms, she can return to ED. - RAD Interpretation Radiology Orders: 09/20/18 07:58 ABD & PELVIS IV CONTRAST ONLY [CT] Stat - Medication Orders Current Medication Orders: Sodium Chloride (Sodium Chloride 0.9%) 1,000 mls @ 999 mls/hr IV .Q1H1M STA Stop: 09/20/18 08:56 Discontinued Medications Morphine Sulfate (Morphine) 4 mg IVP STAT STA Stop: 09/20/18 07:58 Ondansetron HCl (Zofran Inj) 8 mg IVP STAT STA Stop: 09/20/18 07:57 - Scribe Statement The provider has reviewed the documentation as recorded by the Scribe Taspatsya Dayna. All medical record entries made by the Tamekaibe were at my direction and personally dictated by me. I have reviewed the chart and agree that the record accurately reflects my personal performance of the history, physical exam, medical decision making, and the department course for this patient. I have also personally directed, reviewed, and agree with the discharge instructions and disposition. Disposition/Present on Arrival - Present on Arrival Any Indicators Present on Arrival: No History of DVT/PE: No History of Uncontrolled Diabetes: No Urinary Catheter: No History of Decub. Ulcer: No History Surgical Site Infection Following: None - Disposition Have Diagnosis and Disposition been Completed?: Yes Diagnosis: UTI (urinary tract infection) Disposition: HOME/ ROUTINE Disposition Time: 17:57 Patient Plan: Discharge Condition: STABLE Discharge Instructions (ExitCare): Urinary Tract Infections in Adults Prescriptions: DiphenhydrAMINE [Benadryl] 2 cap PO Q8 #25 cap Famotidine [Pepcid] 1 tab PO BID #14 tab levoFLOXacin [Levaquin] 1 tab PO DAILY #10 tab Referrals: Jan Enamorado MD [Primary Care Provider] - Follow up with primary Forms: [employer] (Swiss)
[2018-09-20 09:20] LABS: PH,URINE 6.5 (4.7-8.0); URINE BILIRUBIN NEGATIVE (NEGATIVE); URINE BLOOD NEGATIVE (NEGATIVE); URINE GLUCOSE (UA) NEGATIVE (NEGATIVE); URINE LEUKOCYTE ESTERASE TRACE Leu/uL (NEGATIVE); URINE PROTEIN NEGATIVE mg/dL (<30 mg/dL); URINE UROBILINOGEN 0.2 E.U./dL (<1 E.U./dL)
[2018-09-20 09:22] LABS: URINE APPEARANCE CLEAR (CLEAR); URINE COLOR LIGHT YELLOW (YELLOW)
[2018-09-20 09:32] LABS: URINE BACTERIA MOD (NEG); URINE RBC 0 - 2 /hpf (0-2)
[2018-09-20 09:45] VITALS: O2SAT 100
[2018-09-20] MEDS ORDERED: Morphine 4 mg/ml ISec IVP STA ×2 (10:09→15:13)
[2018-09-20 10:25] LABS: ALB/GLOB RATIO 1.4 (1.1-1.8); ALBUMIN 4.5 g/dL (3.0-4.8); ALT/SGPT 27 U/L (7-56); AST/SGOT 26 U/L (14-36); BLOOD UREA NITROGEN 19 mg/dL (7-21); CALCIUM 9.8 mg/dL (8.4-10.5); GFR NON-AFRICAN AMERICAN > 60; LIPASE 205 U/L (23-300)
[2018-09-20 10:29] LABS: BASO # 0.02 K/mm3 (0.0-2.0); BASO % 0.3 % (0.0-3.0); EOS % 0.5 % (1.5-5.0); GRAN # 5.45 (1.4-6.5); GRAN % 68.2 % (50.0-68.0); HEMOGLOBIN 13.4 g/dL (12.0-16.0); LYMPH # 2.2 (1.2-3.4); LYMPH % 27.9 % (22.0-35.0); MEAN CORPUSCULAR HEMOGLOBIN 31.2 pg (25.0-35.0); MEAN CORPUSCULAR HGB CONC 36.2 g/dl (31.0-37.0); MEAN PLATELET VOLUME 10.6 fl (7.0-11.0); MONO # 0.3 (0.1-0.6); MONO % 3.1 % (1.0-6.0); RBC 4.3 10^6/uL (3.5-6.1)
[2018-09-20] MEDS ORDERED: Iohexol 350 MG/100 ML VIAL ONE (10:52)
--- NOTE | 2018-09-20 15:13 | RAD ---
Date of service: 09/20/2018 HISTORY: confirm central line COMPARISON: 05/04/2018 FINDINGS: LUNGS: No active pulmonary disease. PLEURA: No significant pleural effusion identified, no pneumothorax apparent. CARDIOVASCULAR: No aortic atherosclerotic calcification present. Normal cardiac size. No pulmonary vascular congestion. OSSEOUS STRUCTURES: No significant abnormalities. VISUALIZED UPPER ABDOMEN: Normal. OTHER FINDINGS: None. IMPRESSION: Right IJ line at the junction of the SVC and right atrium. No pneumothorax
[2018-09-20] MEDS: DiphenhydrAMINE 50 mg/ml Inj IVP STA ×2 (15:52→15:59)
--- NOTE | 2018-09-20 16:43 | CT ---
Date of service: 09/20/2018 PROCEDURE: CT Abdomen and Pelvis with contrast HISTORY: RLQ pain, diarrhea, vomiting COMPARISON: 08/09/2018 TECHNIQUE: Contrast dose: 100 mL Omnipaque 350 Radiation dose: Total exam DLP = 448.12 mGy-cm. This CT exam was performed using one or more of the following dose reduction techniques: Automated exposure control, adjustment of the mA and/or kV according to patient size, and/or use of iterative reconstruction technique. FINDINGS: LOWER THORAX: No infiltrate/effusion. Bilateral breast augmentation prostheses. LIVER: Unremarkable. No gross lesion or ductal dilatation. GALLBLADDER AND BILE DUCTS: Status post cholecystectomy PANCREAS: Unremarkable. No gross lesion or ductal dilatation. SPLEEN: Unremarkable. ADRENALS: Unremarkable. No mass. KIDNEYS AND URETERS: 10 mm nonobstructing right upper pole renal calculus. Evaluation for smaller calculi bilaterally is limited by the presence of intravenous contrast. There is a 2 mm nonobstructing left upper pole renal calculus. Question is raised of possible additional small calculi in the lower pole right kidney. No renal mass. No hydronephrosis. No ureteral calculus. VASCULATURE: Unremarkable. No aortic aneurysm. No aortic atherosclerotic calcification or mural plaque present. BOWEL: Unremarkable. No obstruction. No gross mural thickening. APPENDIX: Normal appendix. PERITONEUM: Unremarkable. No free fluid. No free air. LYMPH NODES: Unremarkable. No enlarged lymph nodes. BLADDER: Unremarkable. REPRODUCTIVE: Unremarkable uterus BONES: No acute fracture. Posterior fusion at L4-5. OTHER FINDINGS: None. IMPRESSION: 10 mm right renal calculus, nonobstructing. Tiny nonobstructing left upper pole renal calculus and possible additional right lower pole calculi. No acute abnormality identified.
[2018-09-20 17:04] VITALS: BP 129/77; PULSE 83; RESP 17; TEMP 98.2
== END 2018-09-20 18:36 | disposition home or self-care (01) ==
LOC: ED 07:06
DX: N39.0 Urinary tract infection, site not specified (principal); E11.9 Type 2 diabetes mellitus without complications; I10 Essential (primary) hypertension
CPT/HCPCS: 71045; 74177; 80053; 81001; 83690; 83735; 84100; 84703; 85025; 87086; 96374; 96375; 96376; 99285; J1200; J2270; J2405; J7030; Q9967

== ENCOUNTER 2019-02-18 18:09 | Emergency (ER) | payer MEDICARE ==
[2019-02-18 18:38] VITALS: BMI 26.2
[2019-02-18 19:04] VITALS: RESP 18; TEMP 98.6; O2SAT 100
[2019-02-18] MEDS: Morphine 2 mg/ml ISec IVP STA ×3 (19:26→20:22)
[2019-02-18] MEDS: Sodium Chloride 0.9% 1,000 ML IV STA ×3 (19:27→20:22)
[2019-02-18 19:36] LABS: PH,URINE 6.5 (4.7-8.0); URINE BILIRUBIN NEGATIVE (NEGATIVE); URINE BLOOD NEGATIVE (NEGATIVE); URINE GLUCOSE (UA) NEGATIVE (NEGATIVE); URINE LEUKOCYTE ESTERASE MODERATE Leu/uL (NEGATIVE); URINE PROTEIN NEGATIVE mg/dL (<30 mg/dL); URINE UROBILINOGEN 0.2 E.U./dL (<1 E.U./dL)
[2019-02-18 19:40] LABS: URINE APPEARANCE CLEAR (CLEAR); URINE COLOR YELLOW (YELLOW)
--- NOTE | 2019-02-18 19:42 | ED PDOC ---
Arrival/HPI - General Chief Complaint: Female Genitourinary Historian: Patient - History of Present Illness Narrative History of Present Illness (Text): 02/18/19 19:00 A 43 year old female, whose past medical history includes kidney stones, hypertension, GERD, ovarian cysts s/p oophorectomy, chronic back pain, migraines, anxiety, and depression, presents to the emergency room complaining of bilateral flank pain for the past 3 weeks. Patient states the pain has worsened over the last 3 days. Associated vomiting, subjective fever, nausea, and dysuria. Patient states her last episode of kidney stones was July 2018 and notes kidney stents were placed in the past which have since been removed. Patient states her current symptoms are similar to her prior kidney stones. Patient denies any shortness of breath, chest pain, cough, hematemisis, geovani tochezia, diarrhea, dizziness, headache, saddle anesthesia, bowel/bladder incontinence, fever, chills, trauma, or any other symptoms. PMD: Dr. Enamorado Urologist: Dr. Parks Time/Duration: > week (3 weeks) Symptom Onset: Gradual Symptom Course: Unchanged Activities at Onset: Light Context: Home Past Medical History - Provider Review Nursing Documentation Reviewed: Yes - Infectious Disease Hx of Infectious Diseases: None - Tetanus Immunization Tetanus Immunization: Unknown - Cardiac Hx Cardiac Disorders: Yes Hx Angina: Yes Hx Heart Murmur: Yes Hx Hypertension: Yes - Pulmonary Hx Respiratory Disorders: Yes Hx Bronchitis: Yes Hx Pneumonia: Yes Hx Sleep Apnea: Yes - Neurological Hx Neurological Disorder: Yes Hx Migraine: Yes Other/Comment: insomnia - HEENT Hx HEENT Disorder: Yes Other/Comment: blurred vision at times tearing with vertigo or migranes, laser sx for vision - Renal Hx Renal Disorder: Yes Hx Kidney Stones: Yes - Endocrine/Metabolic Hx Endocrine Disorders: Yes (thyroid nodule) Hx Diabetes Mellitus Type 2: Yes - Hematological/Oncological Hx Blood Disorders: Yes Hx Anemia: Yes - Musculoskeletal/Rheumatological Hx Falls: No - Gastrointestinal Hx Gastrointestinal Disorders: Yes Hx Diverticulitis: Yes Hx Gall Bladder Disease: Yes Hx Gastroesophageal Reflux: Yes Hx Pancreatitis: Yes HX Swallowing Problems: Yes Other/Comment: gastritis - Genitourinary/Gynecological Hx Genitourinary Disorders: Yes (bilat oophorectomy due to cysts) Hx Hematuria: Yes Hx Sexually Transmitted Diseases: Yes (chlaymidia) Hx Urinary Tract Infection: Yes - Psychiatric Hx Psychophysiologic Disorder: Yes Hx Anxiety: Yes Hx Bipolar Disorder: Yes Hx Depression: Yes Hx Panic Disorder: Yes Hx Substance Use: Yes - Surgical History Hx Cholecystectomy: Yes Hx Hysterectomy: Yes (2010) Hx Musculoskeletal Surgery: Yes Hx Orthopedic Surgery: Yes Other/Comment: renal stents - Anesthesia Hx Anesthesia: Yes Hx Anesthesia Reactions: Yes (did not work during egd ) Hx Malignant Hyperthermia: No - Suicidal Assessment Feels Threatened In Home Enviroment: No Family/Social History - Physician Review Nursing Documentation Reviewed: Yes Family/Social History: No Known Family HX Smoking Status: Never Smoked Hx Alcohol Use: No Hx Substance Use: Yes Hx Substance Use Treatment: No Allergies/Home Meds Allergies/Adverse Reactions: Allergies acetaminophen [From Fioricet] Allergy (Verified 02/18/19 18:31) RASH butalbital [From Fioricet] Allergy (Verified 02/18/19 18:31) RASH caffeine [From Fioricet] Allergy (Verified 02/18/19 18:31) RASH enoxaparin sodium [From Lovenox] Allergy (Verified 02/18/19 18:31) RASH ketorolac tromethamine [From Toradol] Allergy (Verified 02/18/19 18:31) RASH meperidine HCl [From Demerol] Allergy (Verified 02/18/19 18:31) RASH metoclopramide HCl [From Reglan] Allergy (Verified 02/18/19 18:31) RASH prednisone Allergy (Verified 02/18/19 18:31) RASH sumatriptan Allergy (Verified 02/18/19 18:31) RASH tramadol Allergy (Verified 02/18/19 18:31) RASH technetium-99m Adverse Reaction (Verified 02/18/19 18:31) RASH Home Medications: Home Meds Medication Instructions Recorded Confirmed Zolpidem Tartrate [Ambien] 10 tab PO HS 09/22/16 05/04/18 metFORMIN [glucOPHAGE] 500 mg PO DAILY 01/09/17 05/04/18 amLODIPine [Norvasc] 2.5 mg PO DAILY 01/05/18 05/04/18 Diazepam [Valium] 5 mg PO TID 05/04/18 05/04/18 Review of Systems - Review of Systems Constitutional: Fevers Respiratory: absent: SOB, Cough Cardiovascular: absent: Chest Pain Gastrointestinal: Nausea, Vomiting. absent: Diarrhea, Hematochezia, Hematemesis Genitourinary Female: Dysuria Neurological: absent: Headache, Dizziness Physical Exam Vital Signs Reviewed: Yes Vital Signs Temp Pulse Resp BP Pulse Ox 02/18/19 19:03 98.6 F 85 18 113/93 H 100 Temperature: Afebrile Blood Pressure: Hypertensive Pulse: Regular Respiratory Rate: Normal Mental Status: Positive for: Alert and Oriented X 3 - Systems Exam Head: Present: Atraumatic, Normocephalic Pupils: Present: PERRL Extroacular Muscles: Present: EOMI Conjunctiva: Present: Normal Neck: Present: Normal Range of Motion Respiratory/Chest: Present: Clear to Auscultation, Good Air Exchange. No: Respiratory Distress, Accessory Muscle Use Cardiovascular: Present: Regular Rate and Rhythm, Normal S1, S2. No: Murmurs Abdomen: Present: Tenderness (Mild epigastric tenderness) Back: Present: CVA Tenderness (Bilateral CVA tenderness) Upper Extremity: Present: Normal Inspection. No: Cyanosis, Edema Lower Extremity: Present: Normal Inspection. No: Edema Neurological: Present: GCS=15, CN II-XII Intact, Speech Normal Skin: Present: Warm, Dry, Normal Color. No: Rashes Psychiatric: Present: Alert, Oriented x 3, Normal Insight, Normal Concentration Medical Decision Making ED Course and Treatment: 02/18/19 19:00 Impression: 43 year old male presenting to the emergency room complaining of jamie ateral flank pain. Plan: -- CMP, CBC -- Lipase -- Coags -- UA -- Chest X-ray -- CT of abdomen and pelvis -- EKG -- Morphine -- Zofran -- IV fluids -- Reassess and disposition Prior Visits: Notes and results from previous visits were reviewed. Progress Notes: Patient allergic to tramadol, tylenol, and NSAIDS. Pain will be treated with morphine. Bloodwork reviewed, unremarkable Will treat findings on UA with keflex, first dose here. EKG unremarkable for ischemic changes, troponin neg. CXR shows no active disease. CT shows bilateral nonobstructing nephrolithiasis. Most significant 7.5mm stone in right renal pole. Advised PMD and urology followup with home pain medications for pain control. No episodes of vomiting in ED. Patient reports improvement in pain with medication. C/o mild itching and sinus irritation. Requesting benadryl. 25mg given. Pt has a friend picking her up from the ED. Diagnostic testing results and plan of care discussed with patient. Strict instructions given regarding prescription use, importance of followup, and signs/symptoms to return to ER including chest pain, SOB, or any other new/worsening symptoms. Pt verbalized understanding of discussion. Patient is A&Ox3, ambulating with steady gait, with vital signs stable for discharge. - Lab Interpretations Lab Results: Urine Color Yellow (YELLOW) 02/18/19 19:23 Urine Appearance Clear (CLEAR) 02/18/19 19:23 Urine pH 6.5 (4.7-8.0) 02/18/19 19: Ur Specific [place] 1.015 (1.005-1.035) 02/18/19 19: Urine Protein Negative mg/dL (<30 mg/dL) 02/18/19 19:23 Urine Glucose (UA) Negative mg/dL (NEGATIVE) 02/18/19 19: Urine Ketones Negative mg/dL (NEGATIVE) 02/18/19 19: Urine Blood Negative (NEGATIVE) 02/18/19 19:23 Urine Nitrate Negative (NEGATIVE) 02/18/19 19:23 Urine Bilirubin Negative (NEGATIVE) 02/18/19 19:23 Urine Urobilinogen 0.2 E.U./dL (<1 E.U./dL) 02/18/19 19:23 Ur Leukocyte Esterase Moderate Viktor/uL (NEGATIVE) H 02/18/19 19:23 I have reviewed the lab results: Yes - RAD Interpretation Narrative RAD Interpretations (Text): 02/18/19 23:43 Abd/Pelvis CT without contrast: FINDINGS: SOFT TISSUES: The lower portion of bilateral breast implants are identified. LUNG BASES: The lung bases appear clear. No pleural effusions are seen. LIVER: Unremarkable. GALLBLADDER AND BILE DUCTS: Status post cholecystectomy. No biliary ductal dilatation is evident. PANCREAS: Unremarkable. SPLEEN: Unremarkable. ADRENAL GLANDS: Unremarkable. KIDNEYS, URETERS, AND BLADDER: Both kidneys are normal in size and location. A 7.5 mm non-obstructing calculus seen in the upper right renal pole. Punctate non-obstructing calculi are seen in the upper renal poles bilaterally. A punctate non-obstructing calculus is seen in the lateral mid left renal pole. There is no hydronephrosis or hydroureter. The urinary bladder appeared normal in size and configuration. STOMACH AND BOWEL: Unremarkable appearance of the stomach and bowel. No evidence of bowel obstruction. No evidence suggesting enteritis or colitis. APPENDIX: No evidence of acute appendicitis on CT examination. PERITONEUM: No free fluid. No free air. LYMPH NODES: No lymphadenopathy is evident. REPRODUCTIVE: Unremarkable as visualized. VASCULATURE: No evidence of abdominal aortic aneurysm. BONES: No aggressive appearing osseous lesion. No acute osseous pathology evident. Incidental discovery is made of 6 lumbar vertebral segments; a normal anatomical variant. There is noted to have been prior surgical fusion at L5-L6 utilizing bilateral pedicle screws. Additionally, there has been disc fusion at L5-6. IMPRESSION: 1. Bilateral non-obstructing renal calculi as described above. 2. Status post cholecystectomy. 3. Incidental note is made of 6 lumbar vertebral segments. There has been surgical fusion of L5-L6 utilizing pedicle screws. Status post disc fusion at L5-6. Electronically signed on Feb 18, 2019 11:36:40 PM EDT by: Fausto Landon M.D., HAYES Certified By [employer] & [facility] Fellowship Trained MRI and CT Specialist Radiology Orders: 02/18/19 18:57 CHEST PORTABLE [RAD] Stat 02/18/19 18:58 ABD & PELVIS IV CONTRAST ONLY [CT] Stat Poker Supervisor: Radiologist - EKG Interpretation EKG Interpretation (Text): NSR at 79; Normal intervals; No STEMI or other signs of acute ischemia Interpreted by ED Physician: Yes Type: 12 lead EKG - Medication Orders Current Medication Orders: Sodium Chloride (Sodium Chloride 0.9%) 1,000 mls @ 1,000 mls/hr IV .Q1H STA Stop: 02/18/19 19:56 Last Admin: 02/18/19 19:27 Dose: 1,000 mls/hr eMAR Start Stop Document 02/18/19 19:27 EQ (Rec: 02/18/19 19:[address] [facility] [place]ER-20) Intravenous Solution Start Date 02/18/19 Start Time 19:27 Discontinued Medications Morphine Sulfate (Morphine) 2 mg IVP STAT STA Stop: 02/18/19 19:01 Last Admin: 02/18/19 19:26 Dose: 2 mg MAR Pain Assessment Document 02/18/19 19:26 EQ (Rec: 02/18/19 19:[address] [facility] [place]-ER-20) Pain Reassessment Is this a pain reassessment? No Sleep Is patient sleeping during reassessment? No Presence of Pain Presence of Pain Yes IVP Administration Document 02/18/19 19:26 EQ (Rec: [facility]18[facility]19 [facility] [facility] Charges for Administration # of IVP Administrations 1 Ondansetron HCl (Zofran Inj) 4 mg IVP STAT STA Stop: 02/18/19 18:58 Last Admin: 02/18/19 19:25 Dose: 4 mg IVP Administration Document 02/18/19 19:25 EQ (Rec: 02/18/19 19:[address] [facility] [place]-ER-20) Charges for Administration # of IVP Administrations 1 - Scribe Statement The provider has reviewed the documentation as recorded by the Tamekaibhyun Brady All medical record entries made by the Scribe were at my direction and personally dictated by me. I have reviewed the chart and agree that the record accurately reflects my personal performance of the history, physical exam, medical decision making, and the department course for this patient. I have also personally directed, reviewed, and agree with the discharge instructions and disposition. Disposition/Present on Arrival - Present on Arrival Any Indicators Present on Arrival: No History of DVT/PE: No History of Uncontrolled Diabetes: No Urinary Catheter: No History of Decub. Ulcer: No History Surgical Site Infection Following: None - Disposition Have Diagnosis and Disposition been Completed?: Yes Diagnosis: Kidney stone, Vomiting, UTI (urinary tract infection) Disposition: HOME/ ROUTINE Disposition Time: 23:45 Condition: IMPROVED Discharge Instructions (ExitCare): Kidney Stones in Adults Additional Instructions: Keflex twice daily for 10 days Zofran every 8 hours as needed for vomiting Pepcid every 12 hours as needed for indigestion Followup with pain management doctor within 2 days Followup with primary doctor within 2 days Return to ER with any new/worsening symptoms Prescriptions: Cephalexin [Keflex] 500 mg PO BID 10 Days #20 capsule Famotidine [Pepcid] 20 mg PO Q12 #30 tab Ondansetron ODT [Zofran ODT] 4 mg PO Q8 #6 odt Referrals: Preston Parks Jr., MD [Staff Provider] - Follow up with primary Jan Enamorado MD [Primary Care Provider] - Follow up with primary Forms: [employer] ([place]ian), WORK NOTE
[2019-02-18] MEDS ORDERED: Iohexol 350 MG/100 ML VIAL ONE (20:00)
[2019-02-18 20:01] LABS: URINE EPITHELIAL CELLS MANY /hpf (0-5); URINE WBC 15 - 20 /hpf (0-6)
[2019-02-18] MEDS: Morphine 2 mg/ml ISec IM STA ×2 (20:02→20:20)
[2019-02-18 20:15] LABS: ALB/GLOB RATIO 1.2 (1.1-1.8); ALBUMIN 4.9 g/dL (3.0-4.8); BLOOD UREA NITROGEN 21 mg/dL (7-21); CALCIUM 10.3 mg/dL (8.4-10.5); GFR NON-AFRICAN AMERICAN > 60; LIPASE 116 U/L (23-300)
[2019-02-18 20:26] LABS: TROPONIN I < 0.01 ng/mL
[2019-02-18 20:28] LABS: ALT/SGPT 14 U/L (7-56); AST/SGOT 32 U/L (14-36)
[2019-02-18 20:31] LABS: BASO # 0.01 K/mm3 (0.0-2.0); BASO % 0.1 % (0.0-3.0); EOS % 0.4 % (1.5-5.0); HEMOGLOBIN 12.2 g/dL (12.0-16.0); LYMPH # 2.3 (1.2-3.4); LYMPH % 30.2 % (22.0-35.0); MEAN CELL VOLUME 90.8 fl (80.0-105.0); MEAN CORPUSCULAR HEMOGLOBIN 31.9 pg (25.0-35.0); MEAN CORPUSCULAR HGB CONC 35.2 g/dl (31.0-37.0); MEAN PLATELET VOLUME 10.6 fl (7.0-11.0); MONO # 0.4 (0.1-0.6); MONO % 4.8 % (1.0-6.0); RBC 3.82 10^6/uL (3.5-6.1); RED CELL DISTRIBUTION WIDTH 13.2 % (11.5-14.5); WHITE BLOOD COUNT 7.5 10^3/uL (4.5-11.0)
[2019-02-18 20:35] LABS: INR 1.09; PARTIAL THROMBOPLASTIN TIME 28.2 Seconds (26.9-38.3); PROTHROMBIN TIME 12.1 SECONDS (9.4-12.5)
[2019-02-18] MEDS ORDERED: Morphine 2 mg/ml ISec IVP STA (21:45)
[2019-02-18] MEDS ORDERED: DiphenhydrAMINE 50 mg/ml Inj IM STA (23:50)
[2019-02-19 00:33] VITALS: BP 111/62; PULSE 77
[2019-02-19] MEDS ORDERED: Morphine 2 mg/ml ISec IVP STA (00:39)
--- NOTE | 2019-02-19 09:19 | RAD ---
HISTORY: abd pain COMPARISON: Chest x-ray performed 09/20/18 TECHNIQUE: Chest, one view. FINDINGS: LUNGS: No focal consolidation. Please note that chest x-ray has limited sensitivity for the detection of pulmonary masses. PLEURA: No significant pleural effusion identified. No definite pneumothorax . CARDIOVASCULAR: The cardiomediastinal silhouette appears within normal limits of size. No significant atherosclerotic calcification present. OSSEOUS STRUCTURES: Degenerative changes. VISUALIZED UPPER ABDOMEN: Unremarkable. OTHER FINDINGS: None. IMPRESSION: No focal consolidation.
--- NOTE | 2019-02-19 11:37 | CT ---
PROCEDURE: CT Abdomen and Pelvis without Oral or IV contrast. HISTORY: bilateral flank pain, h/o kidney stones COMPARISON: CT abdomen and pelvis with IV contrast performed 09/20/18 TECHNIQUE: Contiguous axial images of the abdomen and pelvis. No oral or IV contrast administered. Coronal and Sagittal reformats generated and reviewed. Radiation dose: Total exam DLP = 422.82 mGy-cm. This CT exam was performed using one or more of the following dose reduction techniques: Automated exposure control, adjustment of the mA and/or kV according to patient size, and/or use of iterative reconstruction technique. FINDINGS: There is limited evaluation of the solid organs without the administration of IV contrast. LOWER THORAX: No visible consolidation, pleural effusion, or pneumothorax. Bilateral breast prostheses. LIVER: Unremarkable unenhanced appearance. GALLBLADDER AND BILE DUCTS: Cholecystectomy. PANCREAS: Atrophy. SPLEEN: Unremarkable unenhanced appearance. ADRENALS: Unremarkable unenhanced appearance. KIDNEYS AND URETERS: Bilateral nonobstructing renal calculi, largest on the right measuring approximately 7 mm at the upper pole. No hydronephrosis or obstructing renal calculus. BLADDER: The urinary bladder appears unremarkable. REPRODUCTIVE: Uterus is present. APPENDIX: The appendix appears within normal limits of caliber. No secondary signs of acute appendicitis. BOWEL: The stomach is nondistended. Lack of oral contrast limits evaluation for bowel pathology. The bowel loops appear within normal limits of caliber without evidence of intestinal obstruction. Moderate constipation. PERITONEUM: No significant free fluid. No definite free air. LYMPH NODES: No bulky lymphadenopathy identified. VASCULATURE: No significant atherosclerotic calcifications of the aorta evident. No aortic aneurysm. BONES: L4-L5 posterior lumbar fusion with intervertebral disc spacer present. OTHER FINDINGS: None. IMPRESSION: Bilateral nonobstructing renal calculi, largest on the right measuring approximately 7 mm at the upper pole. No hydronephrosis or obstructing renal calculus. Moderate constipation. Additional findings as above. Preliminary impression was provided by [employer]
--- NOTE | 2019-02-19 15:18 | CARD ---
APPROVED REPORT Date of service: 02/18/2019 EKG Measurement Heart [id number] <Conclusion> Normal sinus rhythm Left axis deviation Abnormal ECG
== END 2019-02-19 00:33 | disposition home or self-care (01) ==
LOC: ED 18:09
DX: N39.0 Urinary tract infection, site not specified (principal); N20.0 Calculus of kidney; R11.10 Vomiting, unspecified; I10 Essential (primary) hypertension; E11.9 Type 2 diabetes mellitus without complications
CPT/HCPCS: 71045; 74176; 80053; 81001; 81025; 83690; 83735; 84484; 85025; 85610; 85730; 87086; 93005; 96372; 96374; 96375; 96376; 99284; J1200; J2270; J2405; J7030

== ENCOUNTER 2019-03-15 16:02 | Emergency (ER) | payer MEDICARE ==
[2019-03-15 16:15] VITALS: BMI 26.6
[2019-03-15 16:29] VITALS: TEMP 98.3; O2SAT 100
--- NOTE | 2019-03-15 16:38 | ED PDOC ---
Arrival/HPI - General Chief Complaint: Back Pain Time Seen by Provider: 03/15/19 16:16 Historian: Patient - History of Present Illness Narrative History of Present Illness (Text): 03/15/19 16:32 43 year old female, whose past medical history includes kidney stones, hypertension, GERD, ovarian cysts s/p oophorectomy, chronic back pain, migraines, anxiety, and depression, presents to the emergency department complaining of right flank pain secondary to her kidney stones associated with nausea. Patient reportedly states she was suppose to have a lithotripsy done 4 days ago, but were not able to get a line in. Patient was the sent to see Dr. Enamorado who sent patient to the ER to have a PICC line insertion. Patient denies any fever, chills, chest pain, shortness of breath, vomiting, diarrhea, neck pain, headache, dizziness, or any other complaints. PMD: Dr. Enamorado Urologist: Dr. Parks Symptom Onset: Gradual Symptom Course: Unchanged Activities at Onset: Light Context: Home Past Medical History - Provider Review Nursing Documentation Reviewed: Yes Primary Care Provider: Jan Enamorado - Infectious Disease Hx of Infectious Diseases: None - Tetanus Immunization Tetanus Immunization: Unknown - Cardiac Hx Cardiac Disorders: Yes Hx Angina: Yes Hx Heart Murmur: Yes Hx Hypertension: Yes - Pulmonary Hx Respiratory Disorders: Yes Hx Bronchitis: Yes Hx Pneumonia: Yes Hx Sleep Apnea: Yes - Neurological Hx Neurological Disorder: Yes Hx Migraine: Yes Other/Comment: insomnia - HEENT Hx HEENT Disorder: Yes Other/Comment: blurred vision at times tearing with vertigo or migranes, laser sx for vision - Renal Hx Renal Disorder: Yes Hx Kidney Stones: Yes - Endocrine/Metabolic Hx Endocrine Disorders: Yes (thyroid nodule) Hx Diabetes Mellitus Type 2: Yes - Hematological/Oncological Hx Blood Disorders: Yes Hx Anemia: Yes - Musculoskeletal/Rheumatological Hx Falls: No - Gastrointestinal Hx Gastrointestinal Disorders: Yes Hx Diverticulitis: Yes Hx Gall Bladder Disease: Yes Hx Gastroesophageal Reflux: Yes Hx Pancreatitis: Yes HX Swallowing Problems: Yes Other/Comment: gastritis - Genitourinary/Gynecological Hx Genitourinary Disorders: Yes (bilat oophorectomy due to cysts) Hx Hematuria: Yes Hx Sexually Transmitted Diseases: Yes (chlaymidia) Hx Urinary Tract Infection: Yes - Psychiatric Hx Psychophysiologic Disorder: Yes Hx Anxiety: Yes Hx Bipolar Disorder: Yes Hx Depression: Yes Hx Panic Disorder: Yes Hx Substance Use: Yes - Surgical History Hx Cholecystectomy: Yes Hx Hysterectomy: Yes (2010) Hx Musculoskeletal Surgery: Yes Hx Orthopedic Surgery: Yes Other/Comment: renal stents - Anesthesia Hx Anesthesia: Yes Hx Anesthesia Reactions: Yes (did not work during egd ) Hx Malignant Hyperthermia: No - Suicidal Assessment Feels Threatened In Home Enviroment: No Family/Social History - Physician Review Nursing Documentation Reviewed: Yes Family/Social History: No Known Family HX Smoking Status: Never Smoked Hx Alcohol Use: No Hx Substance Use: Yes Hx Substance Use Treatment: No Allergies/Home Meds Allergies/Adverse Reactions: Allergies acetaminophen [From Fioricet] Allergy (Verified 03/15/19 16:15) RASH butalbital [From Fioricet] Allergy (Verified 03/15/19 16:15) RASH caffeine [From Fioricet] Allergy (Verified 03/15/19 16:15) RASH enoxaparin sodium [From Lovenox] Allergy (Verified 03/15/19 16:15) RASH ketorolac tromethamine [From Toradol] Allergy (Verified 03/15/19 16:15) RASH meperidine HCl [From Demerol] Allergy (Verified 03/15/19 16:15) RASH metoclopramide HCl [From Reglan] Allergy (Verified 03/15/19 16:15) RASH prednisone Allergy (Verified 03/15/19 16:15) RASH sumatriptan Allergy (Verified 03/15/19 16:15) RASH tramadol Allergy (Verified 03/15/19 16:15) RASH technetium-99m Adverse Reaction (Verified 03/15/19 16:15) RASH Home Medications: Home Meds Medication Instructions Recorded Confirmed Zolpidem Tartrate [Ambien] 10 tab PO HS 09/22/16 05/04/18 metFORMIN [glucOPHAGE] 500 mg PO DAILY 01/09/17 05/04/18 amLODIPine [Norvasc] 2.5 mg PO DAILY 01/05/18 05/04/18 Diazepam [Valium] 5 mg PO TID 05/04/18 05/04/18 Review of Systems - Physician Review All systems were reviewed & negative as marked: Yes - Review of Systems Constitutional: absent: Fevers, Other (chills) Respiratory: absent: SOB Cardiovascular: absent: Chest Pain Gastrointestinal: Abdominal Pain (right flank pain), Nausea. absent: Diarrhea, Vomiting Genitourinary Female: absent: Hematuria Musculoskeletal: absent: Neck Pain Neurological: absent: Headache, Dizziness Physical Exam Vital Signs Reviewed: Yes Vital Signs Temp Pulse Resp BP Pulse Ox 03/15/19 16:28 98.3 F 100 H 18 102/57 L 100 Temperature: Afebrile Blood Pressure: Hypotensive Pulse: Tachycardic Respiratory Rate: Normal Appearance: Positive for: Well-Appearing, Non-Toxic, Comfortable Pain Distress: None Mental Status: Positive for: Alert and Oriented X 3 - Systems Exam Head: Present: Atraumatic, Normocephalic Pupils: Present: PERRL Extroacular Muscles: Present: EOMI Conjunctiva: Present: Normal Mouth: Present: Moist Mucous Membranes Neck: Present: Normal Range of Motion Respiratory/Chest: Present: Clear to Auscultation, Good Air Exchange. No: Respiratory Distress, Accessory Muscle Use Cardiovascular: Present: Regular Rate and Rhythm, Normal S1, S2. No: Murmurs Abdomen: No: Tenderness, Distention, Peritoneal Signs Back: Present: Normal Inspection Upper Extremity: Present: Normal Inspection. No: Cyanosis, Edema Lower Extremity: Present: Normal Inspection. No: Edema Neurological: Present: GCS=15, Speech Normal Skin: Present: Warm, Dry, Normal Color. No: Rashes Psychiatric: Present: Alert, Oriented x 3, Normal Insight, Normal Concentration, Anxious Medical Decision Making ED Course and Treatment: 03/15/19 16:41 Impression: 43 year old female presents complaining of right flank pain and sent in by Dr. Enamorado for a PICC line insertion. Plan: -- CT Abd & Pelvis w/o contrast -- POC Urine Test -- HCG, Qualitative Urine -- Urinalysis -- Reassess and disposition Prior Visits: Notes and results from previous visits were reviewed. Progress Notes: PROCEDURE: CT Abdomen and Pelvis without Oral or IV contrast. Dictator : Sandra Norris MD Report Date : 03/15/2019 17:55:10 IMPRESSION: Bilateral nonobstructing renal calculi, largest on the right measuring approximately 7 mm at the upper pole. Lobulated renal contours. No hydronephrosis or obstructing renal calculus. Moderate to severe diffuse constipation. Additional findings as above. 03/15/19 18:00 On re-evaluation, patient is in no acute distress. I have discussed the results and plan with the patient, who expresses understanding. Patient in agreement with plan to be discharged home. Patient is stable for discharge. Patient was instructed to follow up with physician or return if symptoms worsen or new conc erning symptoms arise. 03/15/19 20:09 drug seeking behavior. pt with noted recent ct no obstructive uropathy. urine neg for infection blood. numerous visits for drug seekign behvviro. no indication for er picc line placement. updated pmd saleeb. agrees to outpt fu. - RAD Interpretation Supervisor [employer]: Radiologist - Scribe Statement The provider has reviewed the documentation as recorded by the Brett Sher Provider Scribe Attestation: All medical record entries made by the Brett were at my direction and personally dictated by me. I have reviewed the chart and agree that the record accurately reflects my personal performance of the history, physical exam, medical decision making, and the department course for this patient. I have also personally directed, reviewed, and agree with the discharge instructions and disposition. Disposition/Present on Arrival - Present on Arrival Any Indicators Present on Arrival: No History of DVT/PE: No History of Uncontrolled Diabetes: No Urinary Catheter: No History of Decub. Ulcer: No History Surgical Site Infection Following: None - Disposition Have Diagnosis and Disposition been Completed?: Yes Diagnosis: Flank pain, Drug-seeking behavior Disposition: HOME/ ROUTINE Disposition Time: 18:00 Condition: STABLE Discharge Instructions (ExitCare): Flank Pain (DC) Additional Instructions: follow up outpatient return to er with worsening Forms: [employer] (Serbian)
[2019-03-15 16:58] LABS: URINE BILIRUBIN NEGATIVE (NEGATIVE); URINE BLOOD NEGATIVE (NEGATIVE); URINE GLUCOSE (UA) NEGATIVE (NEGATIVE); URINE LEUKOCYTE ESTERASE TRACE Leu/uL (NEGATIVE); URINE PROTEIN NEGATIVE mg/dL (<30 mg/dL); URINE UROBILINOGEN 0.2 E.U./dL (<1 E.U./dL)
[2019-03-15 17:00] LABS: URINE APPEARANCE SL CLOUDY (CLEAR); URINE COLOR YELLOW (YELLOW)
[2019-03-15 17:03] LABS: HCG,QUALITATIVE URINE NEGATIVE (NEGATIVE); URINE WBC 0 - 2 /hpf (0-6)
--- NOTE | 2019-03-15 17:58 | CT ---
PROCEDURE: CT Abdomen and Pelvis without Oral or IV contrast. HISTORY: right sided pain h/o of stone COMPARISON: CT abdomen and pelvis without contrast performed 02/18/19 TECHNIQUE: Contiguous axial images of the abdomen and pelvis. No oral or IV contrast administered. Coronal and Sagittal reformats generated and reviewed. Radiation dose: Total exam DLP = 470.02 mGy-cm. This CT exam was performed using one or more of the following dose reduction techniques: Automated exposure control, adjustment of the mA and/or kV according to patient size, and/or use of iterative reconstruction technique. FINDINGS: There is limited evaluation of the solid organs without the administration of IV contrast. LOWER THORAX: No visible consolidation, pleural effusion, or pneumothorax. Bilateral breast prostheses. LIVER: Unremarkable unenhanced appearance. GALLBLADDER AND BILE DUCTS: Cholecystectomy clips. PANCREAS: Atrophy. Otherwise unremarkable unenhanced appearance. SPLEEN: Unremarkable unenhanced appearance. ADRENALS: Unremarkable unenhanced appearance. KIDNEYS AND URETERS: Lobulated renal contours. No hydronephrosis or obstructing renal calculus. Bilateral nonobstructing renal calculi, the largest of which measures approximately 7 mm in the right upper pole. BLADDER: Mildly thick-walled urinary bladder likely exaggerated by under distension. REPRODUCTIVE: Uterus is present. APPENDIX: The appendix is not identified. No secondary signs of acute appendicitis. BOWEL: The stomach is nondistended. Lack of oral contrast limits evaluation for bowel pathology. The bowel loops appear within normal limits of caliber without evidence of intestinal obstruction. Moderate to severe diffuse constipation. PERITONEUM: No significant free fluid. No definite free air. LYMPH NODES: No bulky lymphadenopathy identified. VASCULATURE: No aortic aneurysm. BONES: Posterior L4-L5 lumbar fusion hardware with intervertebral disc spacer present. OTHER FINDINGS: None. IMPRESSION: Bilateral nonobstructing renal calculi, largest on the right measuring approximately 7 mm at the upper pole. Lobulated renal contours. No hydronephrosis or obstructing renal calculus. Moderate to severe diffuse constipation. Additional findings as above.
[2019-03-15 18:06] VITALS: BP 110/61; PULSE 87; RESP 17
== END 2019-03-15 18:10 | disposition home or self-care (01) ==
LOC: ED 16:02
DX: R10.9 Unspecified abdominal pain (principal); Z76.5 Malingerer [conscious simulation]; E11.9 Type 2 diabetes mellitus without complications; I10 Essential (primary) hypertension

== ENCOUNTER 2019-03-18 10:47 | Day surgery (SDC) | payer MEDICARE ==
[2019-03-18 11:29] VITALS: O2SAT 97
[2019-03-18] MEDS ORDERED: Lidocaine PF 2% (5 ml) Inj (For Cardiac Arrhy) ONE (12:02)
[2019-03-18 12:07] VITALS: BMI 25.7
[2019-03-18 13:01] VITALS: BP 121/57; PULSE 81; RESP 18; TEMP 98
--- NOTE | 2019-03-18 16:13 | VASCULAR ---
PROCEDURE: Ultrasound and fluoroscopically placed left upper extremity PICC line. HISTORY: Renal calculi. Limited IV access. Needs treatment antibiotics. PHYSICIAN(S): Mao Pena MD. TECHNIQUE: The relative risks and indications of the procedure were explained to the patient and consent obtained. The patient was placed supine on the arteriogram table and the left arm prepped and draped in the usual sterile fashion. A tourniquet was applied to the left axilla. 1% Xylocaine was used to anesthetize the skin and soft tissues at the puncture site above the elbow. The left basilic vein was punctured under direct ultrasound guidance with a micropuncture set. A 0.018 guidewire was advanced centrally and used to measure the length to the SVC/RA junction. A 5 [place] single-lumen PICC line 43 cm long was advanced to the SVC/RA junction. The catheter was flushed and secured. The patient tolerated the procedure well. IMPRESSION: 1. Ultrasound and fluoroscopically placed left upper extremity PICC line. A 5 [place] single-lumen PICC line 43 cm long was advanced to the SVC/RA junction.
== END 2019-03-18 13:15 | disposition home or self-care (01) ==
LOC: OPSURG 10:47 → SDS 10:47 → OPSURG 13:15
PROVIDERS: ATTEND Radiology Vascular & Interventional Radiology
DX: N20.0 Calculus of kidney (principal)
CPT/HCPCS: 36573; C1751; J1644

== ENCOUNTER 2019-03-18 13:19 | Emergency (ER) | payer MEDICARE ==
[2019-03-18 13:29] VITALS: BMI 26.6
[2019-03-18] MEDS ORDERED: Sodium Chloride 0.9% 1,000 ML IV STA (13:32)
--- NOTE | 2019-03-18 13:40 | ED PDOC ---
Arrival/HPI - General Chief Complaint: Back Pain Time Seen by Provider: 03/18/19 13:33 Historian: Patient - History of Present Illness Narrative History of Present Illness (Text): 03/18/19 13:37 43 y/o female, pmh including dm/htn/gerd/chronic back pain/pylonephritis, psychiatric history including anxiety/depression/bipolar, multiple drug allergy, scheduled to see the urologist in 3 days for lithotripsy shock wave s/p PICC viki e insertion as outpatient can not find the vein, c/o flank pain and need pain medication. pt. has been to the ER multiple times for this complaints, CTs shown non obstructive renal stone, has pmd and urologist follow up. Pt. has this flank pain chronically, old charts reviewed show she had drug abuse history?. Pt. is here at the ER and asking for pain medication but she can not take tylenol/toradol or tramadol but can take morphine. Pt.'s pain has been chronic for weeks, same type of pain today as before with no change in characteristic or severity, no palpitation, no rash, no other medical or psychological complaints. Past Medical History - Provider Review Nursing Documentation Reviewed: Yes Primary Care Provider: Jan Enamorado - Infectious Disease Hx of Infectious Diseases: None - Tetanus Immunization Tetanus Immunization: Unknown - Reproductive Menopause: Yes - Cardiac Hx Cardiac Disorders: Yes Hx Angina: Yes Hx Heart Murmur: Yes Hx Hypertension: Yes - Pulmonary Hx Respiratory Disorders: Yes Hx Bronchitis: Yes Hx Pneumonia: Yes Hx Sleep Apnea: Yes - Neurological Hx Neurological Disorder: Yes Hx Migraine: Yes Other/Comment: insomnia - HEENT Hx HEENT Disorder: Yes Other/Comment: blurred vision at times tearing with vertigo or migranes, laser sx for vision - Renal Hx Renal Disorder: Yes Hx Kidney Stones: Yes - Endocrine/Metabolic Hx Endocrine Disorders: Yes (thyroid nodule) Hx Diabetes Mellitus Type 2: Yes - Hematological/Oncological Hx Blood Disorders: Yes Hx Anemia: Yes - Musculoskeletal/Rheumatological Hx Falls: No - Gastrointestinal Hx Gastrointestinal Disorders: Yes Hx Diverticulitis: Yes Hx Gall Bladder Disease: Yes Hx Gastroesophageal Reflux: Yes Hx Pancreatitis: Yes HX Swallowing Problems: Yes Other/Comment: gastritis - Genitourinary/Gynecological Hx Genitourinary Disorders: Yes (bilat oophorectomy due to cysts) Hx Hematuria: Yes Hx Sexually Transmitted Diseases: Yes (chlaymidia) Hx Urinary Tract Infection: Yes - Psychiatric Hx Psychophysiologic Disorder: Yes Hx Anxiety: Yes Hx Bipolar Disorder: Yes Hx Depression: Yes Hx Panic Disorder: Yes Hx Substance Use: Yes - Surgical History Hx Cholecystectomy: Yes Hx Hysterectomy: Yes (2010) Hx Musculoskeletal Surgery: Yes Hx Orthopedic Surgery: Yes Other/Comment: renal stents - Anesthesia Hx Anesthesia Reactions: Yes (did not work during egd ) Hx Malignant Hyperthermia: No - Suicidal Assessment Feels Threatened In Home Enviroment: No Family/Social History - Physician Review Nursing Documentation Reviewed: Yes Family/Social History: Unknown Family HX Smoking Status: Never Smoked Hx Alcohol Use: No Hx Substance Use: Yes Hx Substance Use Treatment: No Allergies/Home Meds Allergies/Adverse Reactions: Allergies acetaminophen [From Fioricet] Allergy (Verified 03/15/19 16:15) RASH butalbital [From Fioricet] Allergy (Verified 03/15/19 16:15) RASH caffeine [From Fioricet] Allergy (Verified 03/15/19 16:15) RASH enoxaparin sodium [From Lovenox] Allergy (Verified 03/15/19 16:15) RASH ketorolac tromethamine [From Toradol] Allergy (Verified 03/15/19 16:15) RASH meperidine HCl [From Demerol] Allergy (Verified 03/15/19 16:15) RASH metoclopramide HCl [From Reglan] Allergy (Verified 03/15/19 16:15) RASH prednisone Allergy (Verified 03/15/19 16:15) RASH sumatriptan Allergy (Verified 03/15/19 16:15) RASH tramadol Allergy (Verified 03/15/19 16:15) RASH technetium-99m Adverse Reaction (Verified 03/15/19 16:15) RASH Home Medications: Home Meds Medication Instructions Recorded Confirmed Zolpidem Tartrate [Ambien] 10 tab PO HS 09/22/16 03/18/19 metFORMIN [glucOPHAGE] 500 mg PO DAILY 01/09/17 03/18/19 amLODIPine [Norvasc] 2.5 mg PO DAILY 01/05/18 03/18/19 Diazepam [Valium] 5 mg PO TID 05/04/18 03/18/19 Review of Systems - Review of Systems Constitutional: absent: Fatigue, Fevers Eyes: absent: Vision Changes ENT: absent: Hearing Changes Respiratory: absent: SOB, Cough Cardiovascular: absent: Chest Pain Gastrointestinal: Abdominal Pain, Nausea. absent: Diarrhea, Vomiting Musculoskeletal: absent: Arthralgias, Back Pain Skin: absent: Rash, Pruritis Neurological: absent: Headache, Dizziness Hemo/Lymphatic: absent: Adenopathy, Easy Bleeding, Easy Bruising Psychiatric: absent: Anxiety, Depression, Suicidal Ideation Physical Exam Vital Signs Reviewed: Yes Vital Signs Temp Pulse Resp BP Pulse Ox 03/18/19 13:29 97.8 F 68 18 111/74 97 Temperature: Afebrile Blood Pressure: Normal Pulse: Regular Respiratory Rate: Normal Appearance: Positive for: Well-Appearing, Non-Toxic, Comfortable Pain Distress: Mild Mental Status: Positive for: Alert and Oriented X 3 - Systems Exam Head: Present: Atraumatic, Normocephalic Pupils: Present: PERRL Extroacular Muscles: Present: EOMI Conjunctiva: Present: Normal Mouth: Present: Moist Mucous Membranes Neck: Present: Normal Range of Motion Respiratory/Chest: Present: Clear to Auscultation, Good Air Exchange. No: Respiratory Distress, Accessory Muscle Use, Wheezes, Decreased Breath Sounds, Rales, Retracting, Rhonchi, Tachypneic, Tender to Palpation Cardiovascular: Present: Regular Rate and Rhythm, Normal S1, S2. No: Murmurs Abdomen: Present: Normal Bowel Sounds. No: Tenderness, Distention, Peritoneal Signs, Rebound, Guarding, McBurney's Point Tender, Rovsing's Sign Present, Scars Back: Present: Normal Inspection. No: CVA Tenderness, Midline Tenderness, Paraspinal Tenderness, Pain with Leg Raise, Decubitus Ulcer Upper Extremity: Present: Normal Inspection. No: Cyanosis, Edema Lower Extremity: Present: Normal Inspection. No: Edema Neurological: Present: GCS=15, CN II-XII Intact, Speech Normal, Motor Func Grossly Intact, Normal Cerebellar Funct, Gait Normal, Memory Normal Skin: Present: Warm, Dry, Normal Color. No: Rashes Psychiatric: Present: Alert, Oriented x 3, Normal Insight, Normal Concentration Medical Decision Making ED Course and Treatment: 03/18/19 13:41 -labs -ct abdomen and pelvis -IVF/zofran/pepcid -observe and reassess 03/18/19 16:35 -Urine hcg is negative -Labs show no acute findings -Trop after 24 hours is negative -UA show mild UTI -UDS show +benzo and +opiate -CT abdomen and pelvis: Bilateral nonobstructing calculi measuring up to 7 mm on the right. Moderate to severe diffuse constipation. L4-L5 posterior lumbar fusion. -Magnesium citrate ordered for her constipation. Pt. insist on receiving her morphine, will give one dose and discharge home, clinically concern about drug seeking behavior. Pt. had morphine before with no adverse or allergic reaction. Pt. feels well, will discharge home -Discharge home with magnesium citrate, education on continue your pain medication at home, macrobid, stay hydrated, follow up with your own pmd and GI/urologist within 2 days, return to the ER for any new or worsening signs or symptoms. - RAD Interpretation Radiology Orders: 03/18/19 13:31 ABDOMEN & PELVIS [ABD & PELVIS W/O PO OR IV CONT] [CT] Stat PROCEDURE: CT Abdomen and Pelvis without Oral or IV contrast. HISTORY: flank pain COMPARISON: CT abdomen and pelvis performed 03/15/19 TECHNIQUE: Contiguous axial images of the abdomen and pelvis. No oral or IV contrast administered. Coronal and Sagittal reformats generated and reviewed. Radiation dose: Total exam DLP = 375.28 mGy-cm. This CT exam was performed using one or more of the following dose reduction techniques: Automated exposure control, adjustment of the mA and/or kV according to patient size, and/or use of iterative reconstruction technique. FINDINGS: There is limited evaluation of the solid organs without the administration of IV contrast. LOWER THORAX: There is no visible focal consolidation, pleural effusion, or pneumothorax. Partially imaged bilateral breast prostheses. LIVER: Unremarkable unenhanced appearance. GALLBLADDER AND BILE DUCTS: Cholecystectomy. PANCREAS: Unremarkable unenhanced appearance. SPLEEN: Unremarkable unenhanced appearance. ADRENALS: Unremarkable unenhanced appearance. KIDNEYS AND URETERS: No hydronephrosis or obstructing renal calculus. Bilateral nonobstructing renal calculi, largest on the right measuring approximately 7 mm. BLADDER: Under distention of the urinary bladder limits evaluation. REPRODUCTIVE: Uterus is present. APPENDIX: The appendix appears within normal limits of caliber. No secondary signs of acute appendicitis. BOWEL: The stomach is nondistended. Lack of oral contrast limits evaluation for bowel pathology. The bowel loops appear within normal limits of caliber without evidence of intestinal obstruction. Moderate to severe diffuse constipation. PERITONEUM: No significant free fluid. No definite free air. LYMPH NODES: No bulky lymphadenopathy identified. VASCULATURE: No significant atherosclerotic calcifications of the aorta identified. No aortic aneurysm. BONES: L4-L5 posterior lumbar fusion. OTHER FINDINGS: None. IMPRESSION: Bilateral nonobstructing calculi measuring up to 7 mm on the right. Moderate to severe diffuse constipation. L4-L5 posterior lumbar fusion. Additional findings as above. Securities Attorney: Radiologist - Medication Orders Current Medication Orders: Sodium Chloride (Sodium Chloride 0.9%) 1,000 mls @ 999 mls/hr IV .Q1H1M STA Stop: 03/18/19 14:32 Ondansetron HCl (Zofran Inj) 4 mg IVP STAT STA Stop: 03/18/19 13:33 - PA / CERTIFIED MORTICIAN / Resident Statement / has reviewed & agrees with the documentation as recorded. Disposition/Present on Arrival - Present on Arrival Any Indicators Present on Arrival: No History of DVT/PE: No History of Uncontrolled Diabetes: No Urinary Catheter: No History of Decub. Ulcer: No History Surgical Site Infection Following: None - Disposition Have Diagnosis and Disposition been Completed?: Yes Diagnosis: Chronic abdominal pain, Constipation, UTI (urinary tract infection) Disposition: HOME/ ROUTINE Disposition Time: 15:39 Patient Plan: Discharge Patient Problems: Current Active Problems Problem Status Onset Chronic abdominal pain Acute Constipation Acute UTI (urinary tract infection) Acute Condition: IMPROVED Additional Instructions: -Discharge home with magnesium citrate, education on continue your pain medication at home, macrobid, stay hydrated, follow up with your own pmd and GI/urologist within 2 days, return to the ER for any new or worsening signs or symptoms. Prescriptions: Nitrofurantoin Macrocrystals [Macrobid] 100 mg PO BID #20 cap Referrals: Jan Enamorado MD [Primary Care Provider] - Follow up with primary Lowell Azul DO [Staff Provider] - Follow up with primary Jose Guadalupe Banuelos MD [Staff Provider] - Follow up with primary Forms: [employer] (Portuguese), WORK NOTE
[2019-03-18 15:25] LABS: BASO # 0.01 K/mm3 (0.0-2.0); BASO % 0.2 % (0.0-3.0); EOS # 0.1 (0.0-0.7); EOS % 1.4 % (1.5-5.0); HEMOGLOBIN 11.4 g/dL (12.0-16.0); LYMPH # 2.4 (1.2-3.4); LYMPH % 37.9 % (22.0-35.0); MEAN CELL VOLUME 91.5 fl (80.0-105.0); MEAN CORPUSCULAR HEMOGLOBIN 31.4 pg (25.0-35.0); MEAN CORPUSCULAR HGB CONC 34.3 g/dl (31.0-37.0); MEAN PLATELET VOLUME 10.4 fl (7.0-11.0); MONO # 0.4 (0.1-0.6); MONO % 5.8 % (1.0-6.0); RBC 3.63 10^6/uL (3.5-6.1); RED CELL DISTRIBUTION WIDTH 13.1 % (11.5-14.5); WHITE BLOOD COUNT 6.3 10^3/uL (4.5-11.0)
--- NOTE | 2019-03-18 15:34 | CT ---
PROCEDURE: CT Abdomen and Pelvis without Oral or IV contrast. HISTORY: flank pain COMPARISON: CT abdomen and pelvis performed 03/15/19 TECHNIQUE: Contiguous axial images of the abdomen and pelvis. No oral or IV contrast administered. Coronal and Sagittal reformats generated and reviewed. Radiation dose: Total exam DLP = 375.28 mGy-cm. This CT exam was performed using one or more of the following dose reduction techniques: Automated exposure control, adjustment of the mA and/or kV according to patient size, and/or use of iterative reconstruction technique. FINDINGS: There is limited evaluation of the solid organs without the administration of IV contrast. LOWER THORAX: There is no visible focal consolidation, pleural effusion, or pneumothorax. Partially imaged bilateral breast prostheses. LIVER: Unremarkable unenhanced appearance. GALLBLADDER AND BILE DUCTS: Cholecystectomy. PANCREAS: Unremarkable unenhanced appearance. SPLEEN: Unremarkable unenhanced appearance. ADRENALS: Unremarkable unenhanced appearance. KIDNEYS AND URETERS: No hydronephrosis or obstructing renal calculus. Bilateral nonobstructing renal calculi, largest on the right measuring approximately 7 mm. BLADDER: Under distention of the urinary bladder limits evaluation. REPRODUCTIVE: Uterus is present. APPENDIX: The appendix appears within normal limits of caliber. No secondary signs of acute appendicitis. BOWEL: The stomach is nondistended. Lack of oral contrast limits evaluation for bowel pathology. The bowel loops appear within normal limits of caliber without evidence of intestinal obstruction. Moderate to severe diffuse constipation. PERITONEUM: No significant free fluid. No definite free air. LYMPH NODES: No bulky lymphadenopathy identified. VASCULATURE: No significant atherosclerotic calcifications of the aorta identified. No aortic aneurysm. BONES: L4-L5 posterior lumbar fusion. OTHER FINDINGS: None. IMPRESSION: Bilateral nonobstructing calculi measuring up to 7 mm on the right. Moderate to severe diffuse constipation. L4-L5 posterior lumbar fusion. Additional findings as above.
[2019-03-18] MEDS ORDERED: Magnesium Citrate Oral SOL (300 ml) PO ONE (15:37)
[2019-03-18 15:40] LABS: ALB/GLOB RATIO 1.5 (1.1-1.8); ALBUMIN 4.2 g/dL (3.0-4.8); ALT/SGPT 15 U/L (7-56); AST/SGOT 27 U/L (14-36); BLOOD UREA NITROGEN 17 mg/dL (7-21); CALCIUM 9.2 mg/dL (8.4-10.5); GFR NON-AFRICAN AMERICAN > 60; LIPASE 70 U/L (23-300)
[2019-03-18 15:56] LABS: PH,URINE 6.5 (4.7-8.0); URINE BILIRUBIN NEGATIVE (NEGATIVE); URINE BLOOD NEGATIVE (NEGATIVE); URINE GLUCOSE (UA) NEGATIVE (NEGATIVE); URINE LEUKOCYTE ESTERASE TRACE Leu/uL (NEGATIVE); URINE PROTEIN NEGATIVE mg/dL (<30 mg/dL); URINE UROBILINOGEN 0.2 E.U./dL (<1 E.U./dL)
[2019-03-18 15:59] LABS: URINE APPEARANCE CLEAR (CLEAR); URINE COLOR YELLOW (YELLOW)
[2019-03-18 16:00] LABS: TROPONIN I < 0.01 ng/mL
[2019-03-18 16:02] LABS: BARBITURATES, UR NEGATIVE (NEGATIVE); BENZODIAZEPINES, UR POSITIVE (NEGATIVE); OPIATES, UR POSITIVE (NEGATIVE); PHENCYCLIDINE, UR NEGATIVE (NEGATIVE)
[2019-03-18 16:04] LABS: URINE EPITHELIAL CELLS 0 - 2 /hpf (0-5)
[2019-03-18] MEDS ORDERED: Morphine 2 mg/ml ISec IVP STA (16:35)
[2019-03-18 16:39] VITALS: BP 128/75; PULSE 84; RESP 16; TEMP 97.7; O2SAT 98
== END 2019-03-18 17:15 | disposition home or self-care (01) ==
LOC: ED 13:19
DX: K59.00 Constipation, unspecified (principal); N39.0 Urinary tract infection, site not specified; G89.29 Other chronic pain; R10.9 Unspecified abdominal pain; E11.9 Type 2 diabetes mellitus without complications; I10 Essential (primary) hypertension; F31.9 Bipolar disorder, unspecified
CPT/HCPCS: 74176; 80053; 81001; 81025; 83690; 83735; 84484; 85025; 87086; 96361; 96374; 96375; 99283; G0480; J2270; J2405; J7030